=== PATIENT | female | born 1940 | race Caucasian/White ===

== ENCOUNTER 2018-07-04 16:56 | Inpatient (IN) | payer MEDICARE, MEDICAID ==
[~2018-07-04] VITALS: Ht 162.6 cm; Wt 76.5 kg
--- NOTE | ~2018-07-04 | HEMODYNAMI ---
PATIENT:MADELINE ROBINS MEDICAL RECORD: [id number] : 36 LOCATION:[facility].2118 ADMISSION DATE: 07/04/18 Generatedon:07/05/201817:36 Patient name: MADELINE ROBINS Patient #: [id number] SSN: : 1940 Date of study: 07/05/2018 Page: Of Hemodynamic Procedure Report Patient Data Patient Demographics Procedure consent was obtained First Name: MADELINE Gender: Female Last Name: SHIMON : 1940 Middle Initial: ALICIA Age: 77 year(s) Patient #: [id number] Race: Unknown Additional ID: [id number] Contact details [address]: [address] [place] [address] State: [place] City: [place] Zip code: [address] Admission Admission Data Admission Date: 07/04/2018 Admission Time: 16:56 Room #: D.2118 Procedure Procedure Types Cath Procedure Diagnostic Procedure LHC [facility] w/Coronaries PCI Procedure Coronary Stent Coronary Stent Initial Procedure Description Procedure Date Procedure Date: 07/05/2018 Procedure Start Time: 17:11 Procedure End Time: 17:32 Procedure Staff Name Function Fran Spencer MD Performing Physician Roula Webster RT Shark Biologist Martha Nettles RN Nurse Kaleigh Mazariegos RT Scrub Brandon Sanabria RT Monitor Procedure Data Cath Procedure Fluoroscopy Diagnostic fluoroscopy Total fluoroscopy Time: 4.1 time: 4.1 min min Diagnostic fluoroscopy Total fluoroscopy dose: dose: 1304 mGy 1304 mGy Contrast Material Contrast Material Type Amount (ml) Isovue 300 69 Entry Location Entry Primary Successful Side Size Upsize Upsize Entry Closure Succes sful Closure Location (Fr) 1 (Fr) 2 (Fr) Remarks Device Remarks Femoral Right 5 Fr 6 Fr artery Short Estimated blood loss: 10 ml Diagnostic catheters Device Type Used For End Catheter Placement MULTIPACK 3DRC 5Fr Procedure catheter MULTIPACK JL 4.0 5Fr Procedure catheter DIAGNOSTIC JL 5 5Fr Procedure catheter ([id number]) MULTIPACK Pigtail 5 Fr Procedure catheter Procedure Complications No complications Procedure Medications Medication Administration Route Dosage Oxygen etCO2 Nasal cannula 2 l/min Lidocaine 2% added to field 20 Heparin Flush Bag added to field 2 bags (1000units/500ml NS) 0.9% NaCl I.V. 100 ml/hr Versed I.V. 1 mg Fentanyl I.V. 50 mcg Heparin Bolus I.V. 4000 units Integrilin (Bolus I.V. 6.2 ml 2mg/ml) Versed I.V. 1 mg Fentanyl I.V. 50 mcg Plavix P.O. 600 mg Hemodynamics Rest Heart Rate: 70 (bpm) Snapshots Pre Cath Intra NCS Post Cath Vital Signs Time Heart Resp SPO2 etCO2 NIBP (mmHg) Rhythm Pain Sedation Rate (ipm) (%) (mmHg) Status Level (bpm) 17:04:07 71 17 92 24.8 132/79(119) NSR 0 (11) 10(A) , No pain 17:08:15 69 16 93 31.6 129/79(110) NSR 0 (11) 10(A) , No pain 17:12:23 69 16 91 0 120/76(103) NSR 0 (11) 10(A) , No pain 17:16:31 69 14 92 0 108/70(93) NSR 0 (11) 9(A) , No pain 17:20:32 68 15 98 2.2 112/73(93) NSR 0 (11) 9(A) , No pain 17:24:36 68 14 100 3 109/71(91) NSR 0 (11) 9(A) , No pain 17:28:38 69 14 100 5.2 107/72(98) NSR 0 (11) 10(A) , No pain Medications Time Medication Route Dose Verified Delivered Reason Notes Effectiveness by by 17:08:12 Oxygen etCO2 2 Fran Thomas used for Nasal l/min Tj Nettles RN procedure cannula 17:08:18 Lidocaine 2% added 20ml Fran Peters for local to vial Tj Spencer MD anesthetic field 17:08:23 Heparin Flush added 2 Fran Peters used for Bag to bags Tj Spencer MD procedure (1000units/500ml field NS) 17:08:32 0.9% NaCl I.V. 100 Fran Buffie Per physician ml/hr Tj Nettles RN 17:10:01 Fentanyl I.V. 50 Fran Thomas for sedation mcg Tj Nettles RN 17:10:55 Versed I.V. 1 mg Fran Thomas for sedation Tj Nettles RN 17:15:07 Versed I.V. 1 mg Fran Thomas for sedation Tj Nettles RN 17:15:11 Fentanyl I.V. 50 Fran Thomas for sedation mcg Tj Nettles RN 17:24:12 Heparin Bolus I.V. 4000 Fran Thomas for verif ied units Tj Nettles RN anticoagulation with dr spencer 17:25:24 Integrilin I.V. 6.2 Fran Thomas for waste d (Bolus 2mg/ml) ml Tj Nettles RN antiplatelet 3.8 ml therapy of vial 17:32:46 Plavix P.O. 600 Fran Thomas for mg Tj Nettles RN antiplatelet therapy Procedure Log Time Note 16:36:26 Diagnostic Cath status Elective 16:36:28 Roula Webster RT(R) sent for patient. Start room use. 16:36:31 Time tracking: Regular hours (M-F 7:00 - 5:00) 16:36:37 Plan of Care:Hemodynamics will remain stable., Cardiac rhythm will remain stable., Comfort level will be maintained., Respiratory function will remain adequate., Patient/ family verbilizes understanding of procedure., Procedure tolerated without complication., Recovers from procedure without complications.. 16:54:01 Patient received from Med II to CCL 2 Alert and oriented. Tansferred to table in Supine position. 16:54:02 Warm blankets applied, and lina hugger turned on for patient comfort. 16:54:02 Correct patient and procedure confirmed by team. 16:54:07 Signed procedure consent form obtained from patient. 16:54:08 ECG and BP/O2 sat monitors applied to patient. 16:58:26 Full Disclosure recording started 17:03:10 Vital chart was started 17:03:13 Baseline sample Acquired. 17:03:23 Rhythm: sinus rhythm 17:03:31 H&P Date Dictated: 07/05/2018 Within 30 days and on chart.. 17:03:31 Pre-procedure instructions explained to patient. 17:03:32 Pre-op teaching completed and patient verbalized understanding. 17:03:43 Family in patients room. 17:03:45 Patient NPO since Midnight. 17:03:46 Is the patient allergic to Iodine/contrast media? No. 17:03:54 Is patient on blood thinner?Yes 17:03:56 ACC The patient was administered the following blood thiners within the last 24 hours: ACCPlavix 17:03:59 Patient diabetic? No. 17:04:02 Previous problem with sedation/anesthesia? No ? 17:04:03 Snore? Yes 17:04:04 Sleep apnea? No 17:04:05 Deviated septum? No 17:04:05 Opens mouth fully? Yes 17:04:06 Sticks out tongue? Yes 17:04:12 Airway obstruction? Yes COPD 17:04:23 Dentures? No ? 17:04:36 Pre procedure: right dorsailis pedis pulse 1+ Palpable, but thready & weak; easily obliterated 17:04:52 Patient pain scale 0/10 ?. 17:05:02 IV patent on arrival in left antecubital with 0.9% NaCl at O. 17:05:04 Lab results completed and on chart. 17:05:38 Right groin area was prepped with chlora-prep and draped in sterile fashion 17:05:39 Alarms reviewed by R. N. 17:05:40 Sharps counted by scrub and verified by R.N. 17:05:43 Use device set Femoral Dx 17:05:45 Tegaderm 4 x 4 (1626W) opened to sterile field. 17:05:46 ACIST Manifold (44403) opened to sterile field. 17:05:46 ACIST Hand Control (03772) opened to sterile field. 17:05:48 ACIST Syringe (35499) opened to sterile field. 17:05:48 Bag Decanter (2002S) opened to sterile field. 17:05:49 Medline Cath Pack ([id number]) opened to sterile field. 17:05:49 DIAGNOSTIC WIRE .035 260cm J wire (670003) opened to sterile field. 17:05:51 DIAGNOSTIC Multipack 5Fr catheter set (TS8131) opened to sterile field. 17:05:51 SHEATH 5FR Rhinelander (QBW215) opened to sterile field. 17:08:12 Oxygen 2 l/min etCO2 Nasal cannula was administered by Buffie Nettles RN; used for procedure; 17:08:18 Lidocaine 2% 20ml vial added to field was administered by Fran Spencer MD; for local anesthetic; 17:08:23 Heparin Flush Bag (1000units/500ml NS) 2 bags added to field was administered by Fran Spencer MD; used for procedure; 17:08:32 0.9% NaCl 100 ml/hr I.V. was administered by Martha Nettles RN; Per physician; 17::51 --------ALL STOP TIME OUT------ 17:08:51 Final Timeout: patient, procedure, and site verified with staff and physician. All members of the team are in agreement. 17:08:54 Right groin site verified by team. 17:08:57 Physical assessment completed. ASA score P 2 - A patient with mild systemic disease as per Fran Spencer MD. 17:09:00 Sedation plan: IV Moderate Sedation Medication:Versed, Fentanyl 17:10:01 Fentanyl 50 mcg I.V. was administered by Martha Nettles RN; for sedation; 17:10:55 Versed 1 mg I.V. was administered by Martha Nettles RN; for sedation; 17:11:48 Procedure started. 17:11:51 Local anesthetic to right femoral artery with Lidocaine 2% by Fran Spencer MD.INITIAL ACCESS ONLY 17:13:56 A 5 Fr sheath was inserted into the Right Femoral artery 17:14:09 A MULTIPACK 3DRC 5Fr catheter was advanced over the wire and used for Procedure. 17:15:07 Versed 1 mg I.V. was administered by Martha Nettles RN; for sedation; 17:15:11 Fentanyl 50 mcg I.V. was administered by Martha Nettles RN; for sedation; 17:15:29 RCA angiography performed. 17:15:32 Catheter exchanged over wire. 17:16:03 A MULTIPACK JL 4.0 5Fr catheter was advanced over the wire and used for Procedure. 17:16:30 Catheter removed. unable to cannulate vessel. 17:17:28 A DIAGNOSTIC JL 5 5Fr catheter ([id number]) was advanced over the wire and used for Procedure. 17:18:05 LCA angiography performed. 17:18:22 Use device set [facility] PCI 17:18:23 SHEATH 6FR Rhinelander (XCE046) opened to sterile field. 17:18:26 CHOICE PT Extra Support 182cm wire ([id number]) opened to sterile field. 17:18:28 INFLATOR Merit Carolynpak (FS5214) opened to sterile field. 17:19:06 Catheter exchanged over wire. 17:19:16 Sheath upsized to a 6 Fr Short. 17:20:25 A MULTIPACK Pigtail 5 Fr catheter was advanced over the wire and used for Procedure. 17:21:19 LV angiography performed. 17:21:20 LV gram done using NOVOA 17::25 EF : 60 % 17:: Injector settings: Ml/sec: 10, Volume: 20, 17:21:30 Catheter exchanged over wire. 17:22:02 GUIDE 6FR HS II SH catheter ([id number]) opened to sterile field. 17:22:19 6 Fr HS 2 SH guide catheter was inserted over the wire 17:24:12 Heparin Bolus 4000 units I.V. was administered by Martha Nettles RN; for anticoagulation; verified with dr spencer 17:24:29 CPTXS wire advanced. 17:25:10 Wire advanced across lesion. 17:25:24 Integrilin (Bolus 2mg/ml) 6.2 ml I.V. was administered by Martha Nettles RN; for antiplatelet therapy; wasted 3.8 ml of vial 17:25:59 Place stent Inflation Number: 1 A INTEGRITY RX 3.0 x 26 stent ([id number]) was prepped and advanced across the Mid RCA. The stent was deployed at 13 CARLOS for 0:10 (min:sec). 17:26:03 Stent catheter was removed intact over wire. 17:27:13 Place stent Inflation Number: 1 A INTEGRITY RX 3.0 x 22 stent ([id number]) was prepped and advanced across the Prox RCA. The stent was deployed at 13 CARLOS for 0:10 (min:sec). 17:27:26 EXOSEAL 6Fr (EX600) opened to sterile field. 17:27:29 Stent catheter was removed intact over wire. 17:27:30 Wire removed. 17:27:30 Guide catheter removed. 17:27:44 Procedure ended.(Physican Out) 17::56 Fluoroscopy time 04.10 minutes. 17:28:00 Fluoroscopy dose: 1304 mGy 17:28:00 Flurop Dose total: 1304 17:28:06 Contrast amount:Isovue 300 69ml. 17:28:08 Sharps counted by scrub and verified by R.N. 17:28:09 Insertion/operative site no bleeding no hematoma. 17:28:12 Post-op/insertion site Right Femoral artery dressed using a 4 x 4 and Tegaderm. 17:28:13 Post Procedure Pulses reassessed and unchanged 17:28:16 Post-procedure physical assessment completed. ASA score P 2 - A patient with mild systemic disease as per Fran Spencer MD. 17:28:20 Post procedure rhythm: unchanged. 17:28:39 Estimated blood loss: 10 ml 17:30:43 Post procedure instruction explained to patient.Patient verbalizes understanding. 17:30:44 Patient needs reinforcement of post procedure teaching. 17:30:52 Procedure type changed to Cath procedure, Diagnostic procedure, LHC, LHC w/Coronaries, PCI procedure, Coronary Stent, Coronary Stent Initial 17:30:53 Procedure and supply charges have been captured, reviewed, submitted and are correct. 17:30:56 Procedure Complication : No complications 17:31:38 Vital chart was stopped 17:31:39 See physician's report for complete and final results. 17:32:29 Report given to [facility]. 17:32:31 Patient transfered to [facility] with Bed. 17:32:35 Procedure ended. 17:32:35 Full Disclosure recording stopped 17:32:46 Plavix 600 mg P.O. was administered by Martha Nettles RN; for antiplatelet therapy; 17:32:51 End room use (Document Last) Intervention Summary Intervention Notes Time ActionType Lesion and Equipment Action# Pressure Duration Attributes Used 17:25:59 Place stent Mid RCA INTEGRITY RX 1 13 00:10 3.0 x 26 stent ([id number]) 17:27:13 Place stent Prox RCA INTEGRITY RX 1 13 00:10 3.0 x 22 stent ([id number]) Device Usage Item Name Manufacture Quantity Catalog Number Hospital Part Current Mini garnet health Lot# / Charge Number Stock Stock Serial# Code Tegaderm 4 x 3M 1 1626W 890342 742900 517121 5 4 (1626W) ACIST Acist 1 22215 276893 762688 656513 5 Manifold VisualOn (60162) Systems Inc ACIST Hand Acist 1 29544 036627 617155 585339 5 Control Medical (45799) Systems Inc ACIST Acist 1 28185 893325 995204 923653 20 Syringe Medical (79153) Systems Inc Bag Decanter Microtek 1 2001S 858053 91165 298189 5 () Medical Inc. Medline Cath Medline 1 [id number] 293280 83506 435228 5 Pack ([id number]) DIAGNOSTIC St Sincere 1 115345 915022 857515 404436 30 WIRE .035 260cm J wire (271449) DIAGNOSTIC Cardinal 1 JA5418 475699 30908 584313 30 Multipack Health 5Fr catheter set (LM7961) SHEATH 5FR Terumo 1 AXW682 082237 457160 011717 5 Rhinelander (NHL518) MULTIPACK Cardinal 1 813528 5 3DRC 5Fr Health catheter MULTIPACK JL Cardinal 1 368919 5 4.0 5Fr Health catheter DIAGNOSTIC Cardinal 1 605452W 914542 832272 757430 5 JL 5 5Fr Health catheter (128975P) SHEATH 6FR Terumo 1 XXN258 523619 494956 901762 40 Rhinelander (OKQ079) CHOICE PT [place] 1 [id number] 181782 614124 318962 5 Extra Scientific Support 182cm wire ([id number]) INFLATOR Merit 1 VR1753 870188 279339 939747 15 [facility] Medical BasixCompak (CK8174) MULTIPACK Cardinal 1 842919 5 Pigtail 5 Fr Health catheter GUIDE 6FR HS Medtronic 1 [id number] 170527 53432 321077 1 II SH catheter (WP3LBESTN) INTEGRITY RX Medtronic 1 [id number] 069728 357246 104198 5 [id number] 3.0 x 26 stent ([id number]) INTEGRITY RX Medtronic 1 [id number] 651594 114390 558766 5 [id number] 3.0 x 22 stent ([id number]) EXOSEAL 6Fr Cardinal 1 EX600 710429 921530 533874 10 (EX600) Health Signature Audit [place] Stage Time Signature Unsigned Intra-Procedure 07/05/2018 Brandon Sanabria 5:36:49 PM RT(R) Signatures Monitor : Brandon Sanabria RT Signature : Date : Time : [address] [place] [address]
[2018-07-04] MEDS ORDERED: CALAN SR180 MG PO (17:09)
[2018-07-04] MEDS ORDERED: LEVOTHYROXINE100 MCG PO (17:09)
[2018-07-04] MEDS ORDERED: MAXZIDE 75/501 TAB PO (17:16)
[2018-07-04 17:17] VITALS: BP 101/65; BMI 25.8
[2018-07-04] MEDS ORDERED: HYDROCODON-ACE1 EAC7 PO (17:29)
[2018-07-04] MEDS ORDERED: OMEPRAZOLE20 M1 PO (17:30)
[2018-07-04] MEDS ORDERED: COMBIVENT RESPIM4 GM INH (17:31)
[2018-07-04] MEDS ORDERED: SPIRIVA18 MCG INH (17:31)
[2018-07-04] MEDS ORDERED: NEURONTIN 300300 MG PO (17:32)
[2018-07-04] MEDS ORDERED: CLARITIN 10 MG10 MG PO (17:32)
[2018-07-04] MEDS ORDERED: MOBIC7.5 MG PO (17:33)
[2018-07-04] MEDS ORDERED: DONEPEZIL HCL10 MG PO (17:33)
[2018-07-04 19:18] LABS: CKMB 3.2 U/L (0.0-3.6); CREATINE KINASE 87 UL (21-215)
[2018-07-04 19:22] LABS: TROPONIN-I 0.067 ng/mL (0.000-0.060)
[2018-07-04 20:00] VITALS: BP 101/63
[2018-07-05 01:52] LABS: CALCIUM 8.5 mg/dL (8.5-10.1); CARBON DIOXIDE 26.8 mmol/L (21.0-32.0); CREATININE - SERUM 1.2 mg/dL (0.6-1.3); POTASSIUM - SERUM 4.8 mmol/L (3.5-5.1)
[2018-07-05 01:54] LABS: BASOPHILS 0.1 % (0-2); EOSINOPHILS 0 % (0-7); HEMATOCRIT 35.6 % (36.0-48.0); HEMOGLOBIN 11.6 g/dL (12-16); IMMATURE GRANULOCYTES 0.3 % (0-5); LYMPHOCYTES 5.9 % (15-50); MCH 30.3 pg (26.0-34.0); MCHC 32.6 g/dL (31.0-37.0); MEAN PLATELET VOLUME 11.5 fL (7.4-10.4); MONOCYTES 4.2 % (2-11); NEUTROPHILS 89.5 % (40-80); PLATELET COUNT 142 10x3/uL (130-400); RBC 3.83 10x6/uL (4.00-5.40); RDW 14.1 % (11.5-14.5)
[2018-07-05 02:46] LABS: TROPONIN-I 0.101 ng/mL (0.000-0.060)
[2018-07-05 04:00] VITALS: BP 98/58
[2018-07-05 07:00] VITALS: BP 96/54
[2018-07-05 07:23] LABS: CKMB 2.6 U/L (0.0-3.6); CREATINE KINASE 61 UL (21-215)
[2018-07-05 07:24] LABS: TROPONIN-I 0.098 ng/mL (0.000-0.060)
[2018-07-05 11:06] VITALS: Ht 162.6 cm; Wt 76.5 kg
[2018-07-05 13:57] VITALS: BP 93/61
[2018-07-05 20:00] VITALS: BP 118/69
[2018-07-06 04:00] VITALS: BP 149/79
[2018-07-06 07:06] LABS: BASOPHILS 0.1 % (0-2); EOSINOPHILS 0 % (0-7); HEMOGLOBIN 11.8 g/dL (12-16); IMMATURE GRANULOCYTES 0.3 % (0-5); LYMPHOCYTES 5.6 % (15-50); MCH 30.6 pg (26.0-34.0); MCHC 31.9 g/dL (31.0-37.0); MEAN PLATELET VOLUME 11.9 fL (7.4-10.4); PLATELET COUNT 156 10x3/uL (130-400); RBC 3.86 10x6/uL (4.00-5.40); RDW 14.5 % (11.5-14.5); WBC 18.2 10x3/uL (4.8-10.8)
[2018-07-06 07:12] LABS: MCV 95.9 fL (80.0-100.0)
[2018-07-06 07:42] LABS: ANION GAP 14.1 mmol/L (8-16); CALCIUM 8.4 mg/dL (8.5-10.1); CARBON DIOXIDE 25.7 mmol/L (21.0-32.0); CREATININE - SERUM 1.2 mg/dL (0.6-1.3); MAGNESIUM - SERUM 2.5 mg/dL (1.8-2.4); POTASSIUM - SERUM 4.8 mmol/L (3.5-5.1)
[2018-07-06 10:19] VITALS: BP 148/81
[2018-07-06] MEDS ORDERED: PLAVIX75 MG PO (13:37)
[2018-07-06] MEDS ORDERED: BETAPACE 80 MG80 MG PO (13:39)
[2018-07-06] MEDS ORDERED: KEFLEX500 MG PO (13:40)
[2018-07-06] MEDS ORDERED: PREDNISONE10 MG PO (13:41)
--- NOTE | 2018-07-06 15:29 | MORECARE ---
CASE MANAGEMENT DISCHARGE SUMMARY PATIENT: MADELINE ROBINS UNIT: [id number] ADM DATE: 07/04/18 AGE: 77 : 38 SEX: F ROOM/BED: D.2118 AUTHOR: SHAQUILLE PAYTON PHYSICIAN: REFERRING PHYSICIAN: ELIEZER YIP MD DATE OF SERVICE: 07/06/18 Discharge Plan Patient Name: MADELINE ROBINS Facility: [facility]:[place] : 1940 Planned Disposition: Anticipated Discharge Date: Discharge Date: Expected LOS: Initial Reviewer: [email or web address] Initial Review Date: 07/06/2018 Generated: 07/06/18 4:29 pm Patient Name: MADELINE ROBINS Page 83953 at 1522 All edits/amendments must be made on the electronic document DICTATION DATE: 07/06/18 1529 PEOPLESOFT FINANCIAL DEVELOPER: RUBA 07/06/18 1529 RPT#: [id number] DC DATE: STATUS: ADM IN [facility] [address] [place] [address] END OF REPORT
--- NOTE | 2018-07-06 15:42 | MORECARE ---
CASE MANAGEMENT DISCHARGE SUMMARY PATIENT: MADELINE ROBINS UNIT: [id number] ADM DATE: 07/04/18 AGE: 77 : 38 SEX: F ROOM/BED: D.9334 AUTHOR: SHAQUILLE PAYTON PHYSICIAN: REFERRING PHYSICIAN: ELIEZER YIP MD DATE OF SERVICE: 07/06/18 Discharge Plan Patient Name: MADELINE ROBINS Facility: [facility]:[place] : 1940 Planned Disposition: Anticipated Discharge Date: Discharge Date: Expected LOS: Initial Reviewer: [id number] Initial Review Date: 07/06/2018 Generated: 07/06/18 4:41 pm Comments DCP- Discharge Planning Updated by [email or web address]: Kortney Nolen on 07/06/18 2:[address] Patient Name: MADELINE ROBINS Admission Status: Urgent Accout number: [id number] Admission Date: 07-04-2018 : 1940 Admission Diagnosis:UNSPECIFIED ATRIAL FIBRILLATION Attending: ELIEZER YIP Current LOS: 2 Anticipated DC Date: Planned Disposition: Primary Insurance: [facility] MEDICARE SOLUTIONS Discharge Planning Comments: CM MET WITH PATIENT OVER THE PHONE ABOUT DC PLANNING/NEEDS. PATIENT STATES PLANS TO DISCHARGE HOME TOMORROW. STATES SHE WAS ON INHALERS IN THE PAST BUT HAS BEEN OUT. DOCTOR MAY WANT TO CHECK WITH PATIENT REGARDING THE INHALERS. CM WILL FOLLOW AND ASSIST NEEDED WITH DC PLANNING/NEEDS. Pool Player: Kortney Nolen DCPIA - Discharge Planning Initial Assessment Updated by [email or web address]: Kortney Nolen on 07/06/18 3:29 pm * Is the patient Alert and Oriented? Yes * PCP [facility] [place] * Pharmacy [facility] [place] * Preadmission Environment Home with Family * ADLs Independent * Equipment Cane * List name and contact numbers for known caregivers / representatives who currently or will assist patient after discharge: ALEXI, DAUGHTER, * Community resources currently utilized None * Can the patient safely return to the preadmission environment? Yes * Has this patient been hospitalized within the prior 30 days at any hospital? No Last DP export: 07/06/18 2:29 Patient Name: MADELINE ROBINS Page 14986 at 1542 All edits/amendments must be made on the electronic document DICTATION DATE: 07/06/18 1541 SHIP ENGINEER: RUBA 07/06/18 154 RPT#: [id number] DC DATE: STATUS: ADM IN [facility] [address] [place] [address] END OF REPORT
[2018-07-06 17:31] VITALS: BP 150/88
--- NOTE | 2018-07-06 17:39 | MORECARE ---
CASE MANAGEMENT DISCHARGE SUMMARY PATIENT: MADELINE ROBINS UNIT: [id number] ADM DATE: 07/04/18 AGE: 77 : 38 SEX: F ROOM/BED: D.7194 AUTHOR: SHAQUILLE PAYTON PHYSICIAN: REFERRING PHYSICIAN: ELIEZER YIP MD DATE OF SERVICE: 07/06/18 Discharge Plan Patient Name: MADELINE ROBINS Facility: [facility]:[place] : 1940 Planned Disposition: Anticipated Discharge Date: Discharge Date: Expected LOS: Initial Reviewer: [email or web address] Initial Review Date: 07/06/2018 Generated: 07/06/18 6:39 pm Comments DCP- Discharge Planning Updated by [email or web address]: Kortney Nolen on 07/06/18 2:[address] Patient Name: MADELINE ROBINS Admission Status: Urgent Accout number: [id number] Admission Date: 07-04-2018 : 1940 Admission Diagnosis:UNSPECIFIED ATRIAL FIBRILLATION Attending: ELIEZER YIP Current LOS: 2 Anticipated DC Date: Planned Disposition: Primary Insurance: [facility] MEDICARE SOLUTIONS Discharge Planning Comments: CM MET WITH PATIENT OVER THE PHONE ABOUT DC PLANNING/NEEDS. PATIENT STATES PLANS TO DISCHARGE HOME TOMORROW. STATES SHE WAS ON INHALERS IN THE PAST BUT HAS BEEN OUT. DOCTOR MAY WANT TO CHECK WITH PATIENT REGARDING THE INHALERS. CM WILL FOLLOW AND ASSIST NEEDED WITH DC PLANNING/NEEDS. Clip Coater: Kortney Nolen DCPIA - Discharge Planning Initial Assessment Updated by [email or web address]: Kortney Nolen on 07/06/18 3:29 pm * Is the patient Alert and Oriented? Yes * PCP [facility] [place] * Pharmacy [facility] [place] * Preadmission Environment Home with Family * ADLs Independent * Equipment Cane * List name and contact numbers for known caregivers / representatives who currently or will assist patient after discharge: ALEXI, DAUGHTER, * Community resources currently utilized None * Can the patient safely return to the preadmission environment? Yes * Has this patient been hospitalized within the prior 30 days at any hospital? No Coverage Notice Reviewer: [email or web address] - Kortney Nolen Notice Issued Date-Time: 07/06/2018 16:59 Notice Type: IM Discharge Notice Notice Delivered To: Patient Relationship to Patient: Self Manager Route Name: Delivery Method: HAND - Hand Delivered Susan Days: Prior Verbal Notification: Recipient Understood Notice: Yes Recipient Signature: Yes Med Rec Note Co-signed by Attending: Coverage Notice Comment: IMM SERVED Last DP export: 07/06/18 2:42 Patient Name: MADELINE ROBINS Page 31702 at 1739 All edits/amendments must be made on the electronic document DICTATION DATE: 07/06/181738 MOTOR VEHICLE ASSEMBLER: RUBA 07/06/181738 RPT#: [id number] DC DATE: STATUS: ADM IN [facility] [address] [place] [address] END OF REPORT
--- NOTE | 2018-07-06 17:46 | MORECARE ---
CASE MANAGEMENT DISCHARGE SUMMARY PATIENT: MADELINE ROBINS UNIT: [id number] ADM DATE: 07/04/18 AGE: 77 : 38 SEX: F ROOM/BED: D.1414 AUTHOR: TATADOC PHYSICIAN: REFERRING PHYSICIAN: ELIEZER YIP MD DATE OF SERVICE: 07/06/18 Discharge Plan Patient Name: MADELINE ROBINS Facility: [facility]:[place] : 1940 Planned Disposition: Anticipated Discharge Date: Discharge Date: Expected LOS: Initial Reviewer: [email or web address] Initial Review Date: 07/06/2018 Generated: 07/06/18 6:46 pm Comments DCP- Discharge Planning Updated by [email or web address]: Kortney Nolen on 07/06/18 4:[address] Patient Name: MADELINE ROBINS Admission Status: Urgent Accout number: [id number] Admission Date: 07-04-2018 : 1940 Admission Diagnosis:UNSPECIFIED ATRIAL FIBRILLATION Attending: ELIEZER YIP Current LOS: 2 Anticipated DC Date: Planned Disposition: Primary Insurance: [facility] MEDICARE SOLUTIONS Discharge Planning Comments: CM MET WITH PATIENT OVER THE PHONE ABOUT DC PLANNING/NEEDS. PATIENT STATES PLANS TO DISCHARGE HOME TOMORROW. STATES SHE WAS ON INHALERS IN THE PAST BUT HAS BEEN OUT. DOCTOR MAY WANT TO CHECK WITH PATIENT REGARDING THE INHALERS. CM WILL FOLLOW AND ASSIST NEEDED WITH DC PLANNING/NEEDS. Cook Restaurant: Kortney Nolen Appended by Kortney Nolen on 07/06/2018 17:41 PROCESSING ASSISTANT: MET WITH PATIENT FACE TO FACE, IM SIGNED. PATIENT IS VERY SOB. PATIENT HAS BEEN WEARING 02 AT 3 TO 3.5 LITERS. PATIENT MAY NEED O2 AT HOME. ALSO, WBC IS ELEVATED. WHILE REVIEWING THE CHART I NOTICED A CXR HAS BEEN ORDERED FOR TOMORROW. DCPIA - Discharge Planning Initial Assessment Updated by [email or web address]: Kortney Nolen on 07/06/18 3:29 pm * Is the patient Alert and Oriented? Yes * PCP [facility] [place] * Pharmacy [facility] [place] * Preadmission Environment Home with Family * ADLs Independent * Equipment Cane * List name and contact numbers for known caregivers / representatives who currently or will assist patient after discharge: ALEXI, DAUGHTER, * Community resources currently utilized None * Can the patient safely return to the preadmission environment? Yes * Has this patient been hospitalized within the prior 30 days at any hospital? No Coverage Notice Reviewer: [email or web address] Wanda Nolen Notice Issued Date-Time: 07/06/2018 16:59 Notice Type: IM Discharge Notice Notice Delivered To: Patient Relationship to Patient: Self Card Decorator Name: Delivery Method: HAND - Hand Delivered Susan Days: Prior Verbal Notification: Recipient Understood Notice: Yes Recipient Signature: Yes Med Rec Note Co-signed by Attending: Coverage Notice Comment: IMM SERVED Last DP export: 07/06/18 4:39 Patient Name: MADELINE ROBINS Page 11504 at 1746 All edits/amendments must be made on the electronic document DICTATION DATE: 07/06/181744 FLATBED PRESS OPERATOR: RUBA 07/06/181744 RPT#: [id number] DC DATE: STATUS: ADM IN [facility] [address] [place] [address] END OF REPORT
--- NOTE | 2018-07-06 17:53 | MORECARE ---
CASE MANAGEMENT DISCHARGE SUMMARY PATIENT: MADELINE ROBINS UNIT: [id number] ADM DATE: 07/04/18 AGE: 77 : 38 SEX: F ROOM/BED: D.7291 AUTHOR: SHAQUILLE PAYTON PHYSICIAN: REFERRING PHYSICIAN: ELIEZER YIP MD DATE OF SERVICE: 07/06/18 Discharge Plan Patient Name: MADELINE ROBINS Facility: [facility]:[place] : 1940 Planned Disposition: Anticipated Discharge Date: Discharge Date: Expected LOS: Initial Reviewer: [id number] Initial Review Date: 07/06/2018 Generated: 07/06/18 6:53 pm Comments DCP- Discharge Planning Updated by [email or web address]: Natividad Harding on 07/06/18 4:[address] PATIENT SITTING ON THE SIDE OF THE BED. SHE HAS STATED VIA NURSES NOTES, SHE IS SHORT OF BREATH. HER OXYGEN NEEDS HAVE INCREASED FROM 2L TO 3.5. SHE IS SHORT OF BREATH AT REST. ELEVATAED WBC W/ ELEVATED NEUTROPHILS COUNT. SHE RECEIVES NEB TREATMENTS TID. CM SPOKE WITH THE RESPIRTORY THERAPIST. SHE HAD SPOKEN WITH THE NURSE EARLIER TODAY SHE FOUND THE PATIENT WITH AN O2 SAT OF 85%. PATIENT WAS INITIALLY ADMITTED TO [facility] WITH PNEUMONIA..SHE IS NOT ON OXYGEN THERAPY AT HOME. PHYSICAL THERAPY ALSO NOTED PATIENT'S SHORTNESS OF BREATH W/ THERAPY TODAY. DISCUSSED WITH RESPIRTAORY THERAPIST AND NURSE. HAS CXR ORDERED FOR AM. NO PULMONARY CONSULT. CM TO FOLLOW. RESP HAS OBTAINED ADDITIONAL ORDERS. DCP- Discharge Planning Updated by [email or web address]: Kortney Nolen on 07/06/18 4:[address] Patient Name: MADELINE ROBINS Admission Status: Urgent Accout number: [id number] Admission Date: 07-04-2018 : 1940 Admission Diagnosis:UNSPECIFIED ATRIAL FIBRILLATION Attending: ELIEZER YIP Current LOS: 2 Anticipated DC Date: Planned Disposition: Primary Insurance: [facility] MEDICARE SOLUTIONS Discharge Planning Comments: CM MET WITH PATIENT OVER THE PHONE ABOUT DC PLANNING/NEEDS. PATIENT STATES PLANS TO DISCHARGE HOME TOMORROW. STATES SHE WAS ON INHALERS IN THE PAST BUT HAS BEEN OUT. DOCTOR MAY WANT TO CHECK WITH PATIENT REGARDING THE INHALERS. CM WILL FOLLOW AND ASSIST NEEDED WITH DC PLANNING/NEEDS. Continuity Manager: Kortney Nolen Appended by Kortney Nolen on 07/06/2018 17:41 DIRECTOR ENTERPRISE DATA ARCHITECTURE: MET WITH PATIENT FACE TO FACE, IM SIGNED. PATIENT IS VERY SOB. PATIENT HAS BEEN WEARING 02 AT 3 TO 3.5 LITERS. PATIENT MAY NEED O2 AT HOME. ALSO, WBC IS ELEVATED. WHILE REVIEWING THE CHART I NOTICED A CXR HAS BEEN ORDERED FOR TOMORROW. DCPIA - Discharge Planning Initial Assessment Updated by [id number]: Kortney Nolen on 07/06/18 3:29 pm * Is the patient Alert and Oriented? Yes * PCP [facility] IN [place] * Pharmacy [facility] IN [place] * Preadmission Environment Home with Family * ADLs Independent * Equipment Cane * List name and contact numbers for known caregivers / representatives who currently or will assist patient after discharge: ALEXI, ZULEYKA, * Community resources currently utilized None * Can the patient safely return to the preadmission environment? Yes * Has this patient been hospitalized within the prior 30 days at any hospital? No Coverage Notice Reviewer: [id number] - Kortney Nolen Notice Issued Date-Time: 07/06/2018 16:59 Notice Type: IM Discharge Notice Notice Delivered To: Patient Relationship to Patient: Self Stone Crusher Operator Name: Delivery Method: HAND - Hand Delivered Susan Days: Prior Verbal Notification: Recipient Understood Notice: Yes Recipient Signature: Yes Med Rec Note Co-signed by Attending: Coverage Notice Comment: IMM SERVED Last DP export: 07/06/18 4:46 Patient Name: MADELINE ROBINS Page [phone] at 1753 All edits/amendments must be made on the electronic document DICTATION DATE: 07/06/181751 TUBE BENDER: RUBA 07/06/181751 RPT#: [id number] DC DATE: STATUS: ADM IN [facility] [address] [place] [address] END OF REPORT
[2018-07-06 21:10] VITALS: BP 155/85
[2018-07-07 00:46] VITALS: BP 136/80
[2018-07-07 05:27] VITALS: BP 157/96
[2018-07-07 06:49] LABS: BASOPHILS 0.1 % (0-2); EOSINOPHILS 0 % (0-7); HEMATOCRIT 35.5 % (36.0-48.0); HEMOGLOBIN 11.6 g/dL (12-16); IMMATURE GRANULOCYTES 0.5 % (0-5); LYMPHOCYTES 8.8 % (15-50); MCH 30.6 pg (26.0-34.0); MCHC 32.7 g/dL (31.0-37.0); MEAN PLATELET VOLUME 11.6 fL (7.4-10.4); MONOCYTES 7.9 % (2-11); NEUTROPHILS 82.7 % (40-80); RBC 3.79 10x6/uL (4.00-5.40)
[2018-07-07 06:50] LABS: MCV 93.7 fL (80.0-100.0); PLATELET COUNT 123 10x3/uL (130-400); WBC 13.2 10x3/uL (4.8-10.8)
[2018-07-07 07:06] LABS: ANION GAP 13.6 mmol/L (8-16); CALCIUM 8.7 mg/dL (8.5-10.1); CARBON DIOXIDE 27.1 mmol/L (21.0-32.0); CREATININE - SERUM 1.2 mg/dL (0.6-1.3); MAGNESIUM - SERUM 2.7 mg/dL (1.8-2.4); POTASSIUM - SERUM 4.7 mmol/L (3.5-5.1)
[2018-07-07 08:17] VITALS: BP 147/104
[2018-07-07 08:24] VITALS: BP 163/95
[2018-07-07] MEDS ORDERED: ASPIRIN81 MG PO (09:36)
[2018-07-07] MEDS ORDERED: VENTOLIN HFA18 GM INH (10:18)
[2018-07-07 12:19] VITALS: BP 146/96
--- NOTE | 2018-07-08 10:26 | MORECARE ---
CASE MANAGEMENT DISCHARGE SUMMARY PATIENT: MADELINE ROBINS UNIT: [id number] ADM DATE: 07/04/18 AGE: 77 : 38 SEX: F ROOM/BED: D.1578 AUTHOR: TATA,DOC PHYSICIAN: REFERRING PHYSICIAN: ELIEZER YIP MD DATE OF SERVICE: 07/08/18 Discharge Plan Patient Name: MADELINE ROBINS Facility: [facility]:[place] : 1940 Planned Disposition: Home Anticipated Discharge Date: 07/07/18 Discharge Date: 07/07/2018 Expected LOS: 3 Initial Reviewer: [email or web address] Initial Review Date: 07/06/2018 Generated: 07/08/18 11:26 am Comments DCP- Discharge Planning Updated by [email or web address]: Natividad Romans on 07/06/18 4:[address] PATIENT SITTING ON THE SIDE OF THE BED. SHE HAS STATED VIA NURSES NOTES, SHE IS SHORT OF BREATH. HER OXYGEN NEEDS HAVE INCREASED FROM 2L TO 3.5. SHE IS SHORT OF BREATH AT REST. ELEVATAED WBC W/ ELEVATED NEUTROPHILS COUNT. SHE RECEIVES NEB TREATMENTS TID. CM SPOKE WITH THE RESPIRTORY THERAPIST. SHE HAD SPOKEN WITH THE NURSE EARLIER TODAY SHE FOUND THE PATIENT WITH AN O2 SAT OF 85%. PATIENT WAS INITIALLY ADMITTED TO [facility] WITH PNEUMONIA..SHE IS NOT ON OXYGEN THERAPY AT HOME. PHYSICAL THERAPY ALSO NOTED PATIENT'S SHORTNESS OF BREATH W/ THERAPY TODAY. DISCUSSED WITH RESPIRTAORY THERAPIST AND NURSE. HAS CXR ORDERED FOR AM. NO PULMONARY CONSULT. CM TO FOLLOW. RESP HAS OBTAINED ADDITIONAL ORDERS. DCP- Discharge Planning Updated by [email or web address]: Kortney Nolen on 07/06/18 4:[address] Patient Name: MADELINE ROBINS Admission Status: Urgent Accout number: [id number] Admission Date: 07-04-2018 : 1940 Admission Diagnosis:UNSPECIFIED ATRIAL FIBRILLATION Attending: ELIEZER YIP Current LOS: 2 Anticipated DC Date: Planned Disposition: Primary Insurance: [facility] MEDICARE SOLUTIONS Discharge Planning Comments: CM MET WITH PATIENT OVER THE PHONE ABOUT DC PLANNING/NEEDS. PATIENT STATES PLANS TO DISCHARGE HOME TOMORROW. STATES SHE WAS ON INHALERS IN THE PAST BUT HAS BEEN OUT. DOCTOR MAY WANT TO CHECK WITH PATIENT REGARDING THE INHALERS. CM WILL FOLLOW AND ASSIST NEEDED WITH DC PLANNING/NEEDS. Carburetor Expert: Kortney Nolen Appended by Kortney Nolen on 07/06/2018 17:41 WICKER WORKER: MET WITH PATIENT FACE TO FACE, IM SIGNED. PATIENT IS VERY SOB. PATIENT HAS BEEN WEARING 02 AT 3 TO 3.5 LITERS. PATIENT MAY NEED O2 AT HOME. ALSO, WBC IS ELEVATED. WHILE REVIEWING THE CHART I NOTICED A CXR HAS BEEN ORDERED FOR TOMORROW. DCPIA - Discharge Planning Initial Assessment Updated by [email or web address]: Kortney Nolen on 07/06/18 3:29 pm * Is the patient Alert and Oriented? Yes * PCP [facility] IN [place] * Pharmacy [facility] IN [place] * Preadmission Environment Home with Family * ADLs Independent * Equipment Cane * List name and contact numbers for known caregivers / representatives who currently or will assist patient after discharge: ALEXI, ZULEYKA, * Community resources currently utilized None * Can the patient safely return to the preadmission environment? Yes * Has this patient been hospitalized within the prior 30 days at any hospital? No Coverage Notice Reviewer: [id number] - Kortney Nolen Notice Issued Date-Time: 07/06/2018 16:59 Notice Type: IM Discharge Notice Notice Delivered To: Patient Relationship to Patient: Self Dukey Rider Name: Delivery Method: HAND - Hand Delivered Susan Days: Prior Verbal Notification: Recipient Understood Notice: Yes Recipient Signature: Yes Med Rec Note Co-signed by Attending: Coverage Notice Comment: IMM SERVED Last DP export: 07/06/18 4:53 Patient Name: MADELINE ROBINS Page [phone] at 1026 All edits/amendments must be made on the electronic document DICTATION DATE: 07/08/18 1026 SPRAY DRIER OPERATOR: RUBA 07/08/18 1026 RPT#: [id number] DC DATE:07/07/18 STATUS: DIS IN [facility] [address] [place] [address] END OF REPORT
--- NOTE | 2018-07-08 14:36 | OP ---
PATIENT NAME: MADELINE ROBINS MEDICAL RECORD: [id number] :[birth year] LOCATION:D.M2 D.2118 ADMISSION DATE:07/04/18 SURGEON: HARSHA JUAREZ MD DATE OF OPERATION: 07/05/2018 PROCEDURES: 1. PTCA and stent, RCA. 2. Left heart catheterization. 3. Selective coronary angiography. 4. Left ventriculogram. INDICATIONS: Angina, atrial fibrillation, and coronary artery disease. PROCEDURE IN DETAIL: After informed consent was obtained with detailed description of risks and benefits as well as alternative therapies, the patient elected to proceed with angiogram and angioplasty. The right femoral area was prepped and draped in normal sterile fashion. Right femoral artery was cannulated via modified Seldinger technique with placement of 6-Mauritanian sheath. All catheters were exchanged through this sheath. FINDINGS: Left ventriculogram performed in standard 30-degree NOVOA view reveals good cardiac wall motion throughout all segments. Overall ejection fraction estimated at 60%. SELECTIVE CORONARY ANGIOGRAPHY: 1. Left main is with no significant angiographic disease. 2. Left anterior descending has moderate irregularities, but no flow-limiting stenosis. 3. Left circumflex has mild irregularities, but no flow-limiting stenosis. 4. Right coronary has long area of 70+ percent stenosis throughout the mid vessel. PTCA AND STENT OF THE RIGHT CORONARY: Stent used was 3.0 x 30-mm Integrity. Result was 0% residual stenosis. OVERALL IMPRESSION: Successful PTCA and stent of the right coronary, going from 70+ percent initial stenosis to 0% residual. TRANSINT:[id number] Voice Confirmation ID: [id number] DOCUMENT ID: [id number] HARSHA JUAREZ MD at 1436 CC: [id number] DICTATION DATE: 07/05/18 1734 VENETIAN BLIND ASSEMBLER: 07/06/18 0337 DIS IN 07/07/18 [place] [id number] [place] [address]
== END 2018-07-07 15:06 | disposition home or self-care (01) | DRG 248 ==
LOC: D.M2 16:56
PROVIDERS: Family Medicine; Internal Medicine Interventional Cardiology; ADMIT Emergency Medicine
PROC: B2111ZZ Fluoroscopy of Multiple Coronary Arteries using Low Osmolar Contrast (ICD-10-PCS; 2018-07-05)
PROC: B2151ZZ Fluoroscopy of Left Heart using Low Osmolar Contrast (ICD-10-PCS; 2018-07-05)
PROC: 02703DZ Dilation of Coronary Artery, One Artery with Intraluminal Device, Percutaneous Approach (ICD-10-PCS; principal; 2018-07-05 16:36)
PROC: 4A023N7 Measurement of Cardiac Sampling and Pressure, Left Heart, Percutaneous Approach (ICD-10-PCS; 2018-07-05 16:36)
DX: I21.4 Non-ST elevation (NSTEMI) myocardial infarction (principal); J18.9 Pneumonia, unspecified organism; J44.0 Chronic obstructive pulmonary disease with (acute) lower respiratory infection; I48.91 Unspecified atrial fibrillation; J20.9 Acute bronchitis, unspecified; E03.9 Hypothyroidism, unspecified; I10 Essential (primary) hypertension; K21.9 Gastro-esophageal reflux disease without esophagitis; Z72.0 Tobacco use; I25.119 Atherosclerotic heart disease of native coronary artery with unspecified angina pectoris

== ENCOUNTER 2018-07-08 20:59 | Inpatient (IN) | payer MEDICARE, MEDICAID ==
[~2018-07-08] VITALS: Ht 162.6 cm; Wt 68.6 kg
[~2018-07-08 20:59] MED LIST: ASPIRIN81 MG PO; BETAPACE 80 MG80 MG PO; CALAN SR180 MG PO; CLARITIN 10 MG10 MG PO; COMBIVENT RESPIM4 GM INH; DONEPEZIL HCL10 MG PO; HYDROCODON-ACE1 EAC7 PO; KEFLEX500 MG PO; LEVOTHYROXINE100 MCG PO; MAXZIDE 75/501 TAB PO; MOBIC7.5 MG PO; NEURONTIN 300300 MG PO; OMEPRAZOLE20 M1 PO; PLAVIX75 MG PO; PREDNISONE10 MG PO; SPIRIVA18 MCG INH; VENTOLIN HFA18 GM INH
--- NOTE | 2018-07-08 21:08 | NUR ---
MENESES IN PLACE. DRAINING TO GRAVITY. URINE COLOR YELLOW.
[2018-07-08 21:51] LABS: BASOPHILS 0.1 % (0-2); EOSINOPHILS 0.3 % (0-7); HEMATOCRIT 34.1 % (36.0-48.0); HEMOGLOBIN 11.3 g/dL (12-16); IMMATURE GRANULOCYTES 0.4 % (0-5); LYMPHOCYTES 10.2 % (15-50); MCH 30.6 pg (26.0-34.0); MCHC 33.1 g/dL (31.0-37.0); MCV 92.4 fL (80.0-100.0); MEAN PLATELET VOLUME 11.5 fL (7.4-10.4); PLATELET COUNT 107 10x3/uL (130-400); RBC 3.69 10x6/uL (4.00-5.40); RDW 13.9 % (11.5-14.5); WBC 9.9 10x3/uL (4.8-10.8)
[2018-07-08 22:05] LABS: ALBUMIN 2.9 g/dL (3.4-5.0); ANION GAP 12.9 mmol/L (8-16); BILIRUBIN - TOTAL 0.5 mg/dL (0.2-1.3); CALCIUM 8.4 mg/dL (8.5-10.1); CARBON DIOXIDE 26.6 mmol/L (21.0-32.0); CREATININE - SERUM 1.4 mg/dL (0.6-1.3); POTASSIUM - SERUM 4.5 mmol/L (3.5-5.1); PROTEIN - SERUM 5.7 g/dL (6.4-8.2)
[2018-07-08 22:14] LABS: TROPONIN-I 0.043 ng/mL (0.000-0.060)
--- NOTE | 2018-07-08 22:16 | NUR ---
FAMILY AT BEDSIDE AT THIS TIME
[2018-07-08 22:27] VITALS: BP 116/68
--- NOTE | 2018-07-08 22:27 | NUR ---
PT ALERT AND TALKING TO FAMILY AT THIS TIME. PT REQUESTING SOME TO DRINK, ADVISED PT AND FAMILY WILL ASK MD. NO CHANGES NOTED. WILL MONITOR
[2018-07-08 22:37] VITALS: BP 117/74
[2018-07-08 23:08] VITALS: BP 137/68
--- NOTE | 2018-07-08 23:09 | NUR ---
425 URINE OUTPUT AT THIS TIME
[2018-07-08 23:21] LABS: APPEARANCE CLEAR (CLEAR); COLOR YELLOW (YELLOW)
[2018-07-08 23:22] LABS: BILIRUBIN NEGATIVE (NEGATIVE); GLUCOSE NEGATIVE (NEGATIVE); KETONE NEGATIVE (NEGATIVE); NITRITE NEGATIVE (NEGATIVE); PROTEIN NEGATIVE (NEGATIVE); UROBILINOGEN NORMAL (NORMAL)
--- NOTE | 2018-07-08 23:25 | NUR ---
ATTEMPTED IV START X 1. UNABLE TO START AT THIS TIME. SIMPLE DRESSING APPLIED. PT TOLERATED WELL
--- NOTE | 2018-07-08 23:28 | NUR ---
MEHUL RB AT BEDSIDE STARTING IV AT THIS TIME
--- NOTE | 2018-07-08 23:36 | NUR ---
REPORT CALLED FROM ER.
[2018-07-08 23:56] VITALS: BP 98/56
--- NOTE | 2018-07-08 23:56 | NUR ---
ADVISED ON CURRENT BP AT THIS TIME. RECIEVED NEW ORDERS
[2018-07-09] VITALS (8 sets, daily range): BP systolic 88–129; BP diastolic 48–80
--- NOTE | 2018-07-09 | NUR ---
NO CHANGES NOTED. WILL MONITOR
--- NOTE | 2018-07-09 00:17 | NUR ---
RT AT BEDSIDE DRAWING ABG AT THIS TIME
--- NOTE | 2018-07-09 00:25 | NUR ---
REPORT CALLED TO ABBIE
--- NOTE | 2018-07-09 00:26 | NUR ---
IV ROCEPHIN STOPPED AT THIS TIME
--- NOTE | 2018-07-09 02:12 | NUR ---
ZITHROMAX UP AND INFUSING. PT RESTING WITH DEEP/EVEN RESPIRATIONS. DAUGHTER AT BEDSIDE.
--- NOTE | 2018-07-09 03:15 | NUR ---
PT RESTING IN BED WITH NO DISTRESS. NONLABORED RESPIRATIONS. MONITOR AND CPOC.
[2018-07-09 06:23] LABS: BASOPHILS 0 % (0-2); EOSINOPHILS 0 % (0-7); HEMATOCRIT 32.6 % (36.0-48.0); HEMOGLOBIN 10.8 g/dL (12-16); IMMATURE GRANULOCYTES 0.4 % (0-5); LYMPHOCYTES 11.1 % (15-50); MCH 30.5 pg (26.0-34.0); MCHC 33.1 g/dL (31.0-37.0); MCV 92.1 fL (80.0-100.0); MEAN PLATELET VOLUME 11.9 fL (7.4-10.4); MONOCYTES 1.5 % (2-11); PLATELET COUNT 99 10x3/uL (130-400); RBC 3.54 10x6/uL (4.00-5.40); RDW 13.9 % (11.5-14.5); WBC 9.8 10x3/uL (4.8-10.8)
--- NOTE | 2018-07-09 07:10 | NUR ---
REPORT RECEIVED FROM NONFARM ANIMAL CARETAKER. P ATIENT CURRENTLY LAYING IN BED WITH EYES CLOSED BREATHING EVENLY. DR UP BED IN LO0W POSTION AND CALL LIGHT IN REACH. DAUGHTER ASLEEP IN BED SIDE CHAIR.
[2018-07-09 07:24] LABS: CALC OSMOLALITY 297 mosm/kg (275-300); CARBON DIOXIDE 26.7 mmol/L (21.0-32.0); CHLORIDE - SERUM 104 mmol/L (98-107); CKMB 0.8 U/L (0.0-3.6); CREATINE KINASE 16 UL (21-215); CREATININE - SERUM 1.4 mg/dL (0.6-1.3); GLUCOSE 175 mg/dL (74-106); POTASSIUM - SERUM 4.5 mmol/L (3.5-5.1); SODIUM 142 mmol/L (136-145); TROPONIN-I 0.023 ng/mL (0.000-0.060); UREA NITROGEN 42 mg/dL (7-18); eGFR NON AFRICAN AMERICAN 38 mL/min (90-120)
[2018-07-09 09:49] LABS: CKMB 0.1 U/L (0.0-3.6); CREATINE KINASE 20 UL (21-215)
--- NOTE | 2018-07-09 10:34 | NUR ---
PATIENT SITTING UP IN BED VISITING WITH DAUGHTER. PATIENT DENIES ANY NEEDS OR PAIN. WILL CONTINUE WITH PLAN OF CARE.
[2018-07-09 12:44] LABS: % SATURATION 11 % (15-55); IRON 31 ug/dl (35-150); TOTAL IRON BIND CAPACITY 277 ug/dl (260-445); UNSAT IRON BIND CAPACITY 246 ug/dl (150-375)
--- NOTE | 2018-07-09 15:10 | NUR ---
PATIENT STABLE AND UNCHANGED. FAMILY AT BEDSIDE. WILL CONTINUE TO MONITOR
--- NOTE | 2018-07-09 18:25 | NUR ---
PATIENT PULLED OUT OR DISLODGED IV .ONE ATTEMPT BY VICKI VELAZQUEZ HAS BEEN MADE BUT WAS UNSUCCESSFUL. CALLED ER FOR ASSISTANCE AND HELP WAS NOT AVAILABLE. SON AT BEDSIDE.
--- NOTE | 2018-07-09 19:35 | NUR ---
IN WITH FAMILY AT BEDSIDE. TELEMATRY IN PLACE, F/C INTACT AND PATENDECREASED LUNGS SOUNDS. O2 IN PLACE VIA N/C AT 2 L.
[2018-07-10 00:55] VITALS: BP 99/61
[2018-07-10 04:00] VITALS: BP 107/54
--- NOTE | 2018-07-10 07:10 | NUR ---
RECEIVED REPORT FROM TRACK FITTER. PATIENT LAYING IN BED WITH EYES CLOSED AND BREATHING EVENLY. SR UP X 2 BED IN LOW POSITION AND CALL LIGHT IN REACH. WILL CONTINUE TO MONITOR DAUGHTER IN BEDSIDE CHAIR SLEEPING.
[2018-07-10 07:52] VITALS: BP 81/52
--- NOTE | 2018-07-10 10:03 | NUR ---
PATIENT SITTING UP IN BED WATCHING TV AND VISITING WITH DAUGHTER. PATIENT DENIES ANY PAIN OR NEEDS. WILL CONTINUE WITH PLAN OF CARE.
[2018-07-10 11:34] VITALS: BP 81/45
--- NOTE | 2018-07-10 12:40 | NUR ---
PATIENT STABLE AND UNCHANGED. DENIES ANY NEEDS OR PAIN.
[2018-07-10 12:54] LABS: ANION GAP 12.2 mmol/L (8-16); CALCIUM 8.3 mg/dL (8.5-10.1); CARBON DIOXIDE 33.1 mmol/L (21.0-32.0)
[2018-07-10 12:55] LABS: CREATININE - SERUM 1.9 mg/dL (0.6-1.3); POTASSIUM - SERUM 3.3 mmol/L (3.5-5.1)
[2018-07-10 13:11] LABS: BASOPHILS 0.1 % (0-2); EOSINOPHILS 2.3 % (0-7); HEMATOCRIT 36.6 % (36.0-48.0); HEMOGLOBIN 12.3 g/dL (12-16); IMMATURE GRANULOCYTES 0.4 % (0-5); LYMPHOCYTES 30.3 % (15-50); MCH 30.8 pg (26.0-34.0); MCHC 33.6 g/dL (31.0-37.0); MCV 91.7 fL (80.0-100.0); MEAN PLATELET VOLUME 11.7 fL (7.4-10.4); MONOCYTES 7.9 % (2-11); PLATELET COUNT 116 10x3/uL (130-400); RBC 3.99 10x6/uL (4.00-5.40); WBC 11.5 10x3/uL (4.8-10.8)
--- NOTE | 2018-07-10 14:00 | NUR ---
PATIENT UJP TO BEDSIDE CHAIR WITH ASSISTANCE. DTR AT SIDE. WILL CONTINUE TO MONITOR CLOSELY
[2018-07-10 15:57] VITALS: BP 100/69
--- NOTE | 2018-07-10 17:30 | NUR ---
PATIENT STILL IN BEDSIDE CHAIR EATING SUPPER. PATIENT DENIES NEEDS OR PAIN. DTR AT SIDE. PATIENT IS STABLE AND VITAL SIGNS ARE GOOD. WILL CONTINUE TO MONITOR.
--- NOTE | 2018-07-10 19:15 | NUR ---
RESUME CARE. PT IN BED A&0 X4 NO C/O OF PAIN OR DISTRESS AT THIS TIME DAUGHTER AT BEDSIDE CALL LIGHT IN REACH WILL CONT TO CHRISTIAN
[2018-07-10 20:00] VITALS: BP 118/62
[2018-07-11] VITALS: BP 92/65
--- NOTE | 2018-07-11 02:21 | NUR ---
DC'd RT HAND IV...
--- NOTE | 2018-07-11 02:46 | NUR ---
ZOFRAN GIVEN IV FOR NAUSEA
[2018-07-11 04:00] VITALS: BP 116/64
[2018-07-11 06:17] LABS: BASOPHILS 0.1 % (0-2); HEMATOCRIT 37.8 % (36.0-48.0); HEMOGLOBIN 12.7 g/dL (12-16); IMMATURE GRANULOCYTES 0.7 % (0-5); LYMPHOCYTES 24.2 % (15-50); MCH 30.9 pg (26.0-34.0); MCHC 33.6 g/dL (31.0-37.0); MEAN PLATELET VOLUME 11.1 fL (7.4-10.4); MONOCYTES 9.9 % (2-11); NEUTROPHILS 62.1 % (40-80); PLATELET COUNT 103 10x3/uL (130-400); RBC 4.11 10x6/uL (4.00-5.40); RDW 14.1 % (11.5-14.5); WBC 11.5 10x3/uL (4.8-10.8)
[2018-07-11 06:28] LABS: INR 1.11 (0.85-1.17); PROTIME 13.8 SECONDS (11.6-15.0)
[2018-07-11 06:35] LABS: D-DIMER-QUANTITATIVE 9.34 ug/mLFEU (0.20-0.54)
[2018-07-11 06:37] LABS: % SATURATION 27 % (15-55); IRON 94 ug/dl (35-150); TOTAL IRON BIND CAPACITY 345 ug/dl (260-445); UNSAT IRON BIND CAPACITY 251 ug/dl (150-375)
[2018-07-11 06:48] LABS: ANION GAP 10.7 mmol/L (8-16); CALCIUM 8.8 mg/dL (8.5-10.1); CARBON DIOXIDE 35.4 mmol/L (21.0-32.0); CREATININE - SERUM 1.9 mg/dL (0.6-1.3)
[2018-07-11 06:49] LABS: POTASSIUM - SERUM 4.1 mmol/L (3.5-5.1)
[2018-07-11 07:23] LABS: FOLATE (FOLIC ACID) - SERUM 8.8 ng/mL (>3.0)
[2018-07-11 09:18] VITALS: BP 86/54
--- NOTE | 2018-07-11 09:57 | NUR ---
LEFT HAND 22G IV INFILTRATED. DC'D WITH CATH INTACT.
--- NOTE | 2018-07-11 10:48 | NUR ---
RESTING QUIETLY NAD NOTED
--- NOTE | 2018-07-11 12:08 | NUR ---
LEFT FA 22G IV INSERTED X1 ATTEMPT.
--- NOTE | 2018-07-11 12:09 | NUR ---
RUBI COLLADO P.T. STATED TO ME PT IS AN EASY X1 PERSON TRANSFER FROM BED TO RECLINER CHAIR IF PT WANTS TO GET UP FOR DINNER WE SHOULD BE ABLE TO TRANSFER HER.
--- NOTE | 2018-07-11 12:18 | NUR ---
PT HAS MENESES CATH BUT NO STAT LOC. STAT LOC PLACED ON PT'S LEFT LEG.
--- NOTE | 2018-07-11 13:57 | CN ---
PATIENT NAME:MADELINE ROBINS MEDICAL RECORD: [id number] : [birth year] LOCATION:D. D.2109 ADMIT DATE: 07/08/18 ACCOUNT: [id number] CONSULTING PHYSICIAN: DELMI MEAD MD REFERRING PHYSICIAN: ALYSSA GOLDEN MD DATE OF CONSULTATION: 07/08/2018 HISTORY OF PRESENT ILLNESS: A 77-year-old female recently discharged with a history of status post intervention, was transferred here from outside hospital for worsening respiratory insufficiency. Mental status changes, was transferred here for shortness of breath, did have elevated BNP. Of note, LV function was normal at the time of diagnostic angiography. Additionally, has some areas of consolidation in the right lower lobe, which could be consistent with hospital-acquired pneumonitis. We are asked to see her concerning her cardiovascular status. PAST MEDICAL HISTORY: Includes: 1. History of coronary artery disease as described above. 2. Obstructive pulmonary disease. 3. Atrial fibrillation. 4. Hypertension. 5. Hypothyroidism, on replacement. ALLERGIES: None known. MEDICATIONS: Typically include Synthroid 100 mcg every day, Aricept 10 mg p.o. at bedtime, Maxzide 1 tablet every day, sotalol 80 b.i.d., Plavix 75 every day, Ventolin inhaler 2 puffs q.6 hours, and Combivent 1 puff q.i.d. SOCIAL HISTORY: Lives in [place], nonsmoker, good family support. REVIEW OF SYSTEMS: The patient reports easy bruising but reports no swollen glands. The patient reports no fever, no night sweats, no significant weight gain, no significant weight loss. No significant exercise tolerance. The patient reports no dry eyes, no irritation, no vision change. Patient reports no difficulty hearing and no ear pain. Patient reports no frequent nose bleeds or nose and sinus problems. Patient reports on arm pain on exertion. No shortness of breath while lying down. No history of heart murmur. Patient reports no cough, no wheezing or coughing up blood. Patient reports no abdominal pain, no vomiting. Normal appetite. No diarrhea and not vomiting blood. No nausea and no constipation. Patient reports no incontinence. No difficulty urinating. No hematuria. No increased frequency. Patient reports no muscle aches. No weakness, no arthralgias, no back pain. No swelling of the extremities. Patient reports no abnormal mole, no jaundice, no rashes. Reports no loss of consciousness. No weakness and no numbness. No seizures, dizziness, or headaches. The patient reports no depression, no sleep disturbance, feeling safe in a relationship and no alcohol abuse. Patient reports on fatigue. Reports no runny nose or sinus pressure. No itching, no hives, and no frequent sneezing. PHYSICAL EXAMINATION: GENERAL: Chronically ill-appearing female in no acute distress. VITAL SIGNS: 122/62, pulse 60 and regular. HEENT: Normocephalic, atraumatic. NECK: No bruits are noted. CONSULT REPORT [id number] MADELINE ROBINS HEART: Regular, II/ systolic ejection murmur. LUNGS: Diminished breath sounds. ABDOMEN: Soft, nontender. EXTREMITIES: Pulse 2+ with no edema. DIAGNOSTIC DATA: ECG actually shows sinus rhythm, minimal ST-T changes, certainly no evidence of stent thrombosis. IMPRESSION: LV function previously normal via diagnostic angiography. We will check echocardiographic studies to ensure no valve pathology. No evidence of acute stent thrombosis. Further recommendations based on clinical course. TRANSINT:[id number] Voice Confirmation ID: [id number] DOCUMENT ID: [id number] DELMI MEAD MD at 1357 CC: [id number] DICTATION DATE: 07/09/181123 VETERINARIAN SMALL ANIMAL: 07/09/182056 ADM IN [place] [id number]
--- NOTE | 2018-07-11 13:57 | EC ---
PATIENT:MADELINE ROBINS DATE OF SERVICE: 07/08/18 SEX: F MEDICAL RECORD: [id number] DATE OF : [birth year] LOCATION:D.M2 D.210 AGE OF PATIENT: 77 ADMISSION DATE: 07/08/18 REFERRING PHYSICIAN: INTERPRETING PHYSICIAN: DELMI MEAD MD ECHOCARDIOGRAM REPORT ECHO CHARGES 4 ECHO COMPLETE Date: 07/09/18 CLINICAL DIAGNOSIS: CHF ECHOCARDIOGRAPHIC MEASUREMENTS (adult normal given) AC root (d.<3.7cm) 3.6 cm LV Septum d (<1.2 cm> 1.7 cm Valve Excursion 1.3 cm LV Septum (systole) 1.8 cm Left Atria (s.<4.0cm> 4.1 cm LVPW d(<1.2cm) 1.0 cm RV (d.<2.3cm) 3.3 cm LVPW (sytole) 1.0 cm LV diastole(<5.6CM) 4.6 cm MV E-F(>70mm/sec) cm LV systole 3.2 cm LVOT Diameter 1.8 cm MV exc.(>10mm) cm Est.ejection fraction (50-75%) % DOPPLER: LVIT cm/sec A 100 cm/sec E 94 cm/sec LA cm/sec RVSP 41.7 mmHg LVOT 121 cm/sec AOP1/2T m/s Asc. Ao 172 cm/sec RVOT 69 cm/sec RA cm/sec PA 100 cm/sec AV Gradient Peak 11.8 mmHg AV Mean 6.6 mmHg AV Area 2.1 cm MV Gradient Peak 4.4 mmHg MV Mean 2.3 mmHg MV Area cm COMMENTS: Lithographing Machine Operator: Ramonita CASSIDY Vp Account Director: 3 Dr. Ornelas TAPE# PACS Pericardial Effusion N DATE OF SERVICE: 07/10/2018 Adequate 2D, color-flow and spectral Doppler, and M-mode LVH is present. LV internal dimensions are normal. Wall motion is normal. EF is greater than or equal to 55%. Aortic valve sclerosis is without stenosis by Doppler interrogation. Uizi-lt-clrujjkl apical imaging. Left atrium are upper limits of normal with mildly dilated at 4.1 cm. Mitral valve is thickened. Mitral annular calcification with only mild MR. Right-sided chambers are grossly normal. Mild TR with color-flow imaging. ECHOCARDIOGRAM REPORT [id number] MADELINE ROBINS TRANSINT:[id number] Voice Confirmation ID: [id number] DOCUMENT ID: [id number] DELMI MEAD MD at 1357 CC: [id number] DICTATION DATE: 07/10/18 0135 ANIMAL CARE ASSISTANT: 07/10/18 0714 ADM IN [facility] [address] [place] [id number]
[2018-07-11 14:09] VITALS: Ht 162.6 cm; Wt 68.6 kg
--- NOTE | 2018-07-11 14:15 | NUR ---
SPOKE WITH ISABEL SHAW AND STATED TO HER PT MAY BE CONSTIPATED SHE STATED TO ORDER MAG CITRATE 300ML ONE TIME.
[2018-07-11 15:02] VITALS: BP 102/38
[2018-07-11 15:10] VITALS: BP 98/63
--- NOTE | 2018-07-11 16:10 | NUR ---
PT REFUSING VQ SCAN SHE'S "TOO TIRED". STATED TO PT AND PT'S DAUGHTER THAT SCAN IS IMPORTANT TO BE DONE TODAY SO THE DOCTOR CAN HAVE THE RESULTS TOMORROW. THE DAUGHTER VERBALIZED UNDERSTANING BUT THE PT WAS PASSIVE AND STILL DIDN'T WANT SCAN. CHAPLAIN STATED SHE WILL COME BACK TOMORROW.
--- NOTE | 2018-07-11 19:30 | NUR ---
RESUME CARE. PT RADIOLOGY IN RM PT A&O BREATHING EVEN O2 IN PLACE VIA NC @3L DAUGHTER AT BEDSIDE NO C/O OF PAIN OR DISTRESSA AT THIS TIME CALL LIGHT IN REACH WILL CONT TO CHRISTIAN
[2018-07-11 20:00] VITALS: BP 126/77
[2018-07-12] VITALS: BP 109/65
--- NOTE | 2018-07-12 00:20 | NUR ---
PT NEEDED ASSISTS TO BATHROOM, ONCE PT STOOD UP SHE STATED SHE HAD THE SHAKES AND SHE APPEARED WEAK AND STARTED JURKING, APPEARED TO NOT BE ABLE TO HOLD HER SELF UP ON THE COMMODE AND YELLING FOR HER DAUGTHER WHO WAS AT THE BEDSIDE, THE JURKS APPEAR TO STOP AND START BACK AFTER WE TRANFERED HER BACK IN BED , PT SCREAMS OUT AT TIMES WHEN SHE'S BEING TOUCHED SUCH (HOOKING HER UP TO THE IV PUMP) SHE SCREAMED AT HER DAUGHTER FOR NOT ASSISTING IN TRANFER DAUGHTER APPEARS PASSIVE IN REGARDS TO THE PT
[2018-07-12 04:00] VITALS: BP 103/63
[2018-07-12 06:12] LABS: ANION GAP 7.3 mmol/L (8-16); CALCIUM 8.9 mg/dL (8.5-10.1); CARBON DIOXIDE 39.1 mmol/L (21.0-32.0); CREATININE - SERUM 1.7 mg/dL (0.6-1.3); POTASSIUM - SERUM 4.4 mmol/L (3.5-5.1)
[2018-07-12 06:50] LABS: BASOPHILS 0.1 % (0-2); HEMATOCRIT 37.2 % (36.0-48.0); HEMOGLOBIN 12.4 g/dL (12-16); IMMATURE GRANULOCYTES 0.5 % (0-5); MCH 30.3 pg (26.0-34.0); MCHC 33.3 g/dL (31.0-37.0); MEAN PLATELET VOLUME 11.4 fL (7.4-10.4); NEUTROPHILS 60.4 % (40-80); PLATELET COUNT 117 10x3/uL (130-400); RBC 4.09 10x6/uL (4.00-5.40); RDW 13.7 % (11.5-14.5); WBC 12.9 10x3/uL (4.8-10.8)
--- NOTE | 2018-07-12 08:15 | NUR ---
STATED TO RAJEEV SHAW PT'S BP IS 70/52. SHE STATES HOLD LASIX AND ANY BP MEDICATIONS AND GIVE 500 OF NS AND IF THAT DOESN'T BRING IT UP TO LET HER KNOW.
--- NOTE | 2018-07-12 08:30 | NUR ---
NS BOLUS STARTED INFUSING AND THEN LEFT FA IV INFILTRATED. STOPPED NS BOLUS AND DC'D LEFT FA 22G IV WITH CATH INTACT. WILL RESTART NEW IV.
[2018-07-12 08:31] VITALS: BP 70/52
--- NOTE | 2018-07-12 08:49 | NUR ---
22G IV TO LEFT FOREARM WITH ONE ATTEMPT. SECURED WITH TAPE, COVERED WITH OPSITE. INITIALED AND DATED.
--- NOTE | 2018-07-12 09:14 | NUR ---
PT IV ONLY TOLERATING NS AT 175. TRIED BUMPING TO 200ML/HR AND HAD TO TURN IT DOWN TO 175ML/HR.
--- NOTE | 2018-07-12 10:59 | NUR ---
PT TAKEN VIA WC FOR SCAN BY [place] FROM NUCLE[facility] MEDICINE.
--- NOTE | 2018-07-12 11:50 | NUR ---
PT RETURNED FROM SCAN.
--- NOTE | 2018-07-12 12:04 | NUR ---
NS BOLUS DONE INFUSING. BP NOW 102/52.
[2018-07-12 13:05] VITALS: BP 102/52
--- NOTE | 2018-07-12 14:01 | NUR ---
PT SITTING UP ON BEDSIDE. SOB NOTED. HAS 02 ON. WILL CONTINUE TO MONITOR.
--- NOTE | 2018-07-12 14:42 | NUR ---
Rehab Note- Acute Inpatient Rehab prescreen order received. The patient has [facility] insurance and will require a PreAuth prior to an inpatient acute rehab stay. Will need OT Eval for PreAuth, has been ordered. Will begin the PreAuth process. Will follow at this time. THank you for this referral! Justyna Matos RN Clinical Liaison, [facility] Rehab
--- NOTE | 2018-07-12 17:37 | MORECARE ---
CASE MANAGEMENT DISCHARGE SUMMARY PATIENT: MADELINE ROBINS UNIT: [id number] ADM DATE: 07/08/18 AGE: 77 : 38 SEX: F ROOM/BED: D.2108 AUTHOR: SHAQUILLE PAYTON PHYSICIAN: REFERRING PHYSICIAN: ALYSSA GOLDEN MD DATE OF SERVICE: 07/12/18 Discharge Plan Patient Name: MADELINE ROIBNS [facility] [facility] 1940 Planned Disposition: Inpatient Rehab Anticipated Discharge Date: Discharge Date: Expected LOS: Initial Reviewer: [email or web address] Initial Review Date: 07/12/2018 Generated: 07/12/18 6:37 pm DCPIA - Discharge Planning Initial Assessment Updated by [email or web address]: Anrdew Butcher on 07/12/18 5:31 pm * Is the patient Alert and Oriented? Yes * How many steps to enter\exit or inside your home? NONE * PCP DR[facility]OC[facility]N LUJAN IN [facility] * Pharmacy [facility] IN [place] * Preadmission Environment Home with Family * ADLs Independent * Equipment Home Photo Therapy * Other Equipment HOME AND PORTABLE OXYGEN - *NEEDS NEW OXYGEN QUALIFICATION TESTING PRIOR TO DISCHARGE HOME [facility] PATIENT * List name and contact numbers for known caregivers / representatives who currently or will assist patient after discharge: RICHARD FISCHER, DTR, * Verbal permission to speak to the caregivers and representatives has been obtained from the patient. Yes * Community resources currently utilized None * Please name any agencies selected above. NONE * Additional services required to return to the preadmission environment? No * Can the patient safely return to the preadmission environment? Yes * Has this patient been hospitalized within the prior 30 days at any hospital? Yes Patient Name: MADELINE ROBINS Page [phone] at 1737 All edits/amendments must be made on the electronic document DICTATION DATE: 07/12/181736 GUTTER INSTALLER: RUBA 07/12/181736 RPT#: [id number] DC DATE: STATUS: ADM IN [facility] [address] [place] [address] END OF REPORT
--- NOTE | 2018-07-12 17:45 | MORECARE ---
CASE MANAGEMENT DISCHARGE SUMMARY PATIENT: MADELINE ROBINS UNIT: [id number] ADM DATE: 07/08/18 AGE: 77 : 38 SEX: F ROOM/BED: D.3408 AUTHOR: TATADOC PHYSICIAN: REFERRING PHYSICIAN: ALYSSA GOLDEN MD DATE OF SERVICE: 07/12/18 Discharge Plan Patient Name: MADELINE ROBINS [facility] [facility] 1940 Planned Disposition: Inpatient Rehab Anticipated Discharge Date: Discharge Date: Expected LOS: Initial Reviewer: [id number] Initial Review Date: 07/12/2018 Generated: 07/12/18 6:45 pm Comments DCP- Discharge Planning Updated by [email or web address]: Andrew Butcher on 07/12/18 4:[address] Patient Name: MADELINE ROBINS Admission Status: ER Accout number: [id number] Admission Date: 07-08-2018 : 1940 Admission Diagnosis:HEART FAILURE, UNSPECIFIED Attending: ALYSSA GOLDEN Current LOS: 4 Anticipated DC Date: Planned Disposition: Inpatient Rehab Primary Insurance: [facility] MEDICARE SOLUTIONS PLANNED EXTERNAL PROVIDER: [facility] INPATIENT REHAB Discharge Planning Comments: CM RECIEVED ORDER FOR INPATIENT REHAB PRESCREENING. CM MET WITH PT AND DAUGHTER IN ROOM TO DISCUSS DISCHARGE PLANNING AND NEEDS. MADELINE ROBINS provided verbal consent to discuss current and ongoing needs with/in the presence of: RICHARD HALL. PT WANTS RICHARD EMERGENCY CONTACT AND WANTS DAUGHTER ALEXI REMOVED EMERGENCY CONTACT. PT REPORTS LIVING AT HOME INDEPENDENTLY WITH FAMILY. PT HASHOME AND PORTABLE OXYGEN THAT WAS SET UP THE OTHER DAY WITH [facility]. PT ALSO HAS A CANE. PT HAS NO OUTSIDE SERVICES ASSISTING IN THE HOME. CM DISCUSSED AVAILABILITY OF HOME HEALTH, REHAB SERVICES AND MEDICAL EQUIPMENT. PT WANTS REHAB AT [facility], REPORTS HER DAUGHTER WILL PICK HER UP FOR DISCHARGE HOME. IMPORTANT MESSAGE FROM MEDICARE PROVIDED AND EXPLAINED. CM NOTIFIED RODERICK OF ADMISSIONS OF PT'S REQUEST TO REMOVE DAUGHTER ALEXI LEVI EMERGENCY CONTACT AND TO ADD DAUGHTER RICHARD FISCHER, . CM SPOKE TO MACI OF INPATIENT REHAB, NOTIFIED OF PT'S WANTING REHAB AT [facility]. PT HAS MANAGED MEDICARE AND WILL REQUIRE PRIOR AUTHORIZATION FROM INSURANCE FOR REHAB SERVICES. CM TO CONTINUE TO FOLLOW AND ASSIST NEEDED. Oracle Scm Consultant: Andrew Butcher DCPIA - Discharge Planning Initial Assessment Updated by [id number]: Andrew Butcher on 07/12/18 5:31 pm * Is the patient Alert and Oriented? Yes * How many steps to enter\exit or inside your home? NONE * PCP DR[facility] JOCELYN LUJAN IN [facility] * [facility]acy [facility] IN [place] * Preadmission Environment Home with Family * ADLs Independent * Equipment Home Photo Therapy * Other Equipment HOME AND PORTABLE OXYGEN - *NEEDS NEW OXYGEN QUALIFICATION TESTING PRIOR TO DISCHARGE HOME [facility] * List name and contact numbers for known caregivers / representatives who currently or will assist patient after discharge: RICHARD FISCHER DTHannah, * Verbal permission to speak to the caregivers and representatives has been obtained from the patient. Yes * Community resources currently utilized None * Please name any agencies selected above. NONE * Additional services required to return to the preadmission environment? No * Can the patient safely return to the preadmission environment? Yes * Has this patient been hospitalized within the prior 30 days at any hospital? 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 [address] END OF REPORT
--- NOTE | 2018-07-12 19:20 | NUR ---
RESUME CARE . PT SITTING UP IN BED [address] VIA NC @3L NO C/O OF PAIN OR DISTRESS AT THIS WILL CONT TO MONTIOR CALL LIGHT IN REACH
--- NOTE | 2018-07-12 21:00 | NUR ---
HELD BETAPACE BP 107/71
[2018-07-12 21:08] VITALS: BP 107/71
--- NOTE | 2018-07-13 02:56 | NUR ---
RESTING WITH EYES CLOSED. RR EVEN U/L. NO S/S OF DISCOMFORT. CL IN REACH.
[2018-07-13 05:15] LABS: BASOPHILS 0 % (0-2); EOSINOPHILS 1.4 % (0-7); HEMATOCRIT 34.7 % (36.0-48.0); HEMOGLOBIN 11.5 g/dL (12-16); IMMATURE GRANULOCYTES 0.4 % (0-5); LYMPHOCYTES 23.4 % (15-50); MCH 30.3 pg (26.0-34.0); MCHC 33.1 g/dL (31.0-37.0); MCV 91.3 fL (80.0-100.0); MEAN PLATELET VOLUME 11.4 fL (7.4-10.4); MONOCYTES 9.8 % (2-11); PLATELET COUNT 111 10x3/uL (130-400); RDW 13.7 % (11.5-14.5); WBC 11.8 10x3/uL (4.8-10.8)
[2018-07-13 05:46] LABS: ANION GAP 8.2 mmol/L (8-16); CARBON DIOXIDE 35.3 mmol/L (21.0-32.0); CREATININE - SERUM 1.4 mg/dL (0.6-1.3)
[2018-07-13 05:51] LABS: POTASSIUM - SERUM 3.5 mmol/L (3.5-5.1)
--- NOTE | 2018-07-13 09:00 | NUR ---
PATIENTS DAUGHTER REMAINS AT BEDSIDE. MENESES CATH IN PLACE. TELELMTRY IN PLACE. PATIENT IS ALERT/ORIENT. CALL LIGHT WITHIN REACH. WILL CONTINUE WITH PLAN OF CARE.
[2018-07-13 09:01] VITALS: BP 138/88
--- NOTE | 2018-07-13 10:12 | NUR ---
UP TO CHAIR WITH PT ASSIST. IV PATENT. CALL LIGHT IN REACH.
--- NOTE | 2018-07-13 12:38 | NUR ---
OT NOTE: DURING OT EVALUATION, DTR WAS AT PTS BEDSIDE. SHE BEGAN TELLING THERAPIST THAT PT HAD STARTED THESE "JERKING" MOVEMENTS ON Jul WHEN PTS OTHER DTR CAME TO VISIT. STATED THAT SHE BROUGHT PT IN SOME FOOD AND FELT THAT IT MIGHT HAVE BEEN POISONED. STATES THAT SHE INFORMED THE NURSE AND WILL TELL DR WHEN HE COMES IN ( SHE WANTS PT TO BE TESTED FOR POISON ). RUTH CANELA, OTR/L
--- NOTE | 2018-07-13 12:59 | NUR ---
PATIENT SITTING UP IN WHEELCHAIR AT BEDSIDE. DAUGHTER REMAINS IN ROOM. THIS NURSE TALKED TO DR GOLDEN IN REGARDS TO NEW ONSET OF SHAKING.
[2018-07-13 14:03] VITALS: BP 110/79
[2018-07-13 17:44] VITALS: BP 121/58
--- NOTE | 2018-07-13 19:15 | NUR ---
RECIEVED UP IN BED WITH DTR AT BEDSIDE. EYES CLOSED AND TV ON. APPEARS TO BE RESTING COMFORTABLY. DTR VOICES CONCERNS OVER ATIVAN AND IF HER MOM IS GOING TO GET IT BECAUSE HER HANDS SHEKE. STATED TOLD HER IT WAS PROBABLY FROM NERVES. NO OTHER CONCERNS VOICED. PT AROUSES TO VERBAL STIMULI. VERY LETHARGIC. DENIES ANY PAIN OR NEEDS. WILL CONT. POC.
[2018-07-13 20:23] VITALS: BP 92/56
[2018-07-14 01:46] VITALS: BP 103/52
--- NOTE | 2018-07-14 04:05 | NUR ---
RESTING IN BED WITH EYES CLOSED AT THIS TIME. DTR IN CHAIR AT BEDSIDE. WILL CONT. POC.
[2018-07-14 05:29] LABS: BASOPHILS 0.1 % (0-2); EOSINOPHILS 1.4 % (0-7); HEMATOCRIT 34.3 % (36.0-48.0); HEMOGLOBIN 11.2 g/dL (12-16); IMMATURE GRANULOCYTES 0.3 % (0-5); LYMPHOCYTES 21.7 % (15-50); MCH 30.4 pg (26.0-34.0); MCHC 32.7 g/dL (31.0-37.0); MEAN PLATELET VOLUME 11.9 fL (7.4-10.4); MONOCYTES 12.3 % (2-11); NEUTROPHILS 64.2 % (40-80); PLATELET COUNT 107 10x3/uL (130-400); RBC 3.69 10x6/uL (4.00-5.40); RDW 14.2 % (11.5-14.5); WBC 11.6 10x3/uL (4.8-10.8)
[2018-07-14 05:34] VITALS: BP 98/59
[2018-07-14 05:35] LABS: CALCIUM 8.7 mg/dL (8.5-10.1); CARBON DIOXIDE 35.8 mmol/L (21.0-32.0); CREATININE - SERUM 1.3 mg/dL (0.6-1.3); POTASSIUM - SERUM 3.8 mmol/L (3.5-5.1)
--- NOTE | 2018-07-14 08:00 | NUR ---
PATIENTS DAUGHTER REMAINS IN ROOM. PATIENT IS ALERT WITH SOME FORGETFULLNESS NOTED. CALL LIGHT WITHIN REACH. VOICES NO NEEDS. WILL CONTINUE WITH PLAN OF CARE.
--- NOTE | 2018-07-14 08:05 | NUR ---
RESP UL ON . IV PATENT. FAMILY MEMBER AT BS. CALL LIGHT IN REACH. WILL CONT. PLAN OF CARE.
[2018-07-14 08:09] LABS: IMMUNOGLOBULIN E 4 IU/mL (0-100)
[2018-07-14 08:31] VITALS: BP 106/64
--- NOTE | 2018-07-14 10:06 | NUR ---
DR. SOTO INTO SEE PATIENT. SEE TIMOTHY BLOOD
[2018-07-14 11:56] VITALS: BP 89/48
--- NOTE | 2018-07-14 14:03 | NUR ---
PHYSICAL THERAPIST WORKING WITH PATIENT IN ROOM. PATIENT REQUESTED PRN PAIN MEDICATION FOR BACK AND ABDOMENAL PAIN. PRN PAIN MEDICATION GIVEN
[2018-07-14 15:35] VITALS: BP 80/47
--- NOTE | 2018-07-14 19:08 | NUR ---
RECIEVED UP IN BED USING HER FINGERS TO EAT. ALERT AND ORIENTED TO PERSON. O2@ 3 LITERS PER N/C IN PLACE. IV TO LEFT FA WITH NS INFUSING AT 30CC/HR. NO REDNESS OR SWELLING TO SITE. DSG INTACT. DENIES ANY NEEDS. WILL CONT. POC.
[2018-07-14 20:00] VITALS: BP 79/48
[2018-07-15] VITALS: BP 82/50
[2018-07-15 04:00] VITALS: BP 86/37
[2018-07-15 05:44] LABS: BASOPHILS 0.1 % (0-2); EOSINOPHILS 1.4 % (0-7); HEMATOCRIT 32.3 % (36.0-48.0); HEMOGLOBIN 10.3 g/dL (12-16); IMMATURE GRANULOCYTES 0.3 % (0-5); LYMPHOCYTES 16.3 % (15-50); MCH 29.9 pg (26.0-34.0); MCHC 31.9 g/dL (31.0-37.0); MCV 93.9 fL (80.0-100.0); MEAN PLATELET VOLUME 11.9 fL (7.4-10.4); MONOCYTES 10.3 % (2-11); NEUTROPHILS 71.6 % (40-80); PLATELET COUNT 110 10x3/uL (130-400); RBC 3.44 10x6/uL (4.00-5.40); RDW 14.4 % (11.5-14.5); WBC 11.8 10x3/uL (4.8-10.8)
[2018-07-15 06:04] LABS: ANION GAP 9.5 mmol/L (8-16); CALCIUM 8.8 mg/dL (8.5-10.1); CARBON DIOXIDE 36.9 mmol/L (21.0-32.0); CREATININE - SERUM 1.4 mg/dL (0.6-1.3)
[2018-07-15 06:11] LABS: POTASSIUM - SERUM 4.4 mmol/L (3.5-5.1)
[2018-07-15 08:37] VITALS: BP 88/47
--- NOTE | 2018-07-15 10:23 | NUR ---
Rehab Note- Awaiting for clinicals to be faxed for review for possible inpatient acute rehab stay. Will continue to follow at this time. Thank you for this referral! Justyna Matos RN Clinical Liaison, [facility] Rehab
--- NOTE | 2018-07-15 11:11 | NUR ---
DINESH YING WITH DR GOLDEN, INFORMED HER OF THE SPOT ON THE PATIENTS UPPER LEFT HIP AREA THAT APPEARS TO BE HERPES. SHE STATED THAT THEY WILL LOOK AT IT DURING ROUNDS.
--- NOTE | 2018-07-15 11:28 | NUR ---
OLD SALINE LOCK TO LEFT FA REMOVED WITH CATH TIP INTACT. IV SITE IS RED AND SLIGHTLY SWOLLEN. RE-SITED TO RIGHT HAND WITH 22 G X 2 STICKS PER THIS NURSE.
--- NOTE | 2018-07-15 11:46 | NUR ---
NG TUBE FEEDING FLUSHED WITH WATER AND CLAMPED.
[2018-07-15 11:56] VITALS: BP 91/40
--- NOTE | 2018-07-15 13:30 | NUR ---
OT NOTE: DTR AT BEDSIDE; DTR DOES NOT REMEMBER THERAPIST COMING IN TO SEE PT THIS WEEKEND. PT LIEING IN BED; ENCOURAGED PT TO ROLL TO SIDE; REQUIRED EXT TIME, PT CONTINUED TO FALL ASLEEP. MIN ASSIST FOR SUPINE TO SIT; P.T. AND O.T. BOTH ASSISTED PT WITH AMBULATION APPROX 6 STEPS. PT WITH CONSTANT EPISODES OF LEGS GIVING OUT; CONTINUES WITH SHAKEY/JERKY TYPE MOVEMEMTS IN BOTH UPPER AND LOWER EXT. REQUIRES EXTENSIVE ASSIST SHE IS UNABLE TO CONTINUALLY SUPPORT HERSELF IN STANDING. RUTH CANELA, OTR/L
[2018-07-15 15:20] VITALS: BP 79/41
--- NOTE | 2018-07-15 16:24 | NUR ---
DR PINEDO AND DR RAGSDALE NOTIFIED OF HOLDING THE AFTERNOON DOSE OF GABERPENTIN PATIENT IS REALLY SLEEPY.
--- NOTE | 2018-07-15 18:07 | NUR ---
OT NOTE: PT COMPLETED SITTING BALANCE AXS WITH CGA. PT COMPLETED SELF FEEDING WITH VERBAL CUES AND SET UP. THANK YOU, KRISHNA ZAMORA
--- NOTE | 2018-07-15 19:00 | NUR ---
PT ALERT AND ORIENTED WHEN ENTERING THE ROOM. PT FINISHING BREATHING TREATMENT. PT LUNGS PRESENT WITH DIMINISHED BREATH SOUNDS IN BILATERAL UPPERA AND LOWER LOBES. PT RATES PAIN OF 8 ON SCALE OF1-10 TO ABDOMEN. PT HAS RIGHT HAND IV THAT IS SALINE LOCKED. PT IS WEARING 2L O2 VIA NASAL CANNULA. NO DISTRESS NOTED AT THIS TIME. CALL LIGHT IN REACH AND PT VERBALIZES HOW TO USE.
[2018-07-15 20:00] VITALS: BP 98/62
--- NOTE | 2018-07-15 21:03 | NUR ---
PT CALLED OUT FOR DAUGHTER SEVERAL TIMES. HAD TO EXPLAIN THAT DAUGHTER WAS NOT HERE AND THEN PT WOULD REMEMBER AND APOLOGIZE. PT IS ORIENTED TO PERSON AND TO "HOSPITAL" AND STATES "I DONT KNOW WHAT TIME IT IS BUT I KNOW ITS NIGHT TIME." PT TOLERATED HS MEDICATIONS. CALL LIGHT IN HAND.
--- NOTE | 2018-07-15 23:26 | NUR ---
RN ANGIOGRAPHY AT BEDSIDE TO OBTAIN VITALS, CALL LIGHT IN REACH. WILL CONTINUE WITH PLAN OF CARE.
[2018-07-16] VITALS: BP 95/51
--- NOTE | 2018-07-16 03:42 | NUR ---
ANSWERED PT CALL LIGHT. PT COMPLAINING OF ABDOMEN AND BACK PAIN, RATES 10/10. ADMINISTERED PRN PAIN MEDICINE ORDERED. DAUGHTER AT BEDSIDE.
[2018-07-16 04:00] VITALS: BP 104/59
[2018-07-16 05:32] LABS: BASOPHILS 0.2 % (0-2); EOSINOPHILS 1.8 % (0-7); HEMATOCRIT 34.6 % (36.0-48.0); HEMOGLOBIN 11.3 g/dL (12-16); IMMATURE GRANULOCYTES 0.3 % (0-5); LYMPHOCYTES 23.7 % (15-50); MCH 30.6 pg (26.0-34.0); MCHC 32.7 g/dL (31.0-37.0); MCV 93.8 fL (80.0-100.0); MEAN PLATELET VOLUME 11.6 fL (7.4-10.4); MONOCYTES 10.9 % (2-11); NEUTROPHILS 63.1 % (40-80); PLATELET COUNT 118 10x3/uL (130-400); RBC 3.69 10x6/uL (4.00-5.40); RDW 14.8 % (11.5-14.5); WBC 10.3 10x3/uL (4.8-10.8)
--- NOTE | 2018-07-16 05:53 | NUR ---
PT ALERT AND ORIENTED WHEN ENTERING THE ROOM. PT UP IN CHAIR. DAUGHTER AT BEDSIDE AND STATED SHE ASSISTED PT TO BED. PT HAS NO COMPLAINTS AT THIS TIME. DENIES NEEDS. CALL LIGHT IN REACH.
[2018-07-16 06:01] LABS: ANION GAP 7.8 mmol/L (8-16); CARBON DIOXIDE 36.2 mmol/L (21.0-32.0); CREATININE - SERUM 1.2 mg/dL (0.6-1.3); MAGNESIUM - SERUM 2.1 mg/dL (1.8-2.4)
[2018-07-16 08:19] VITALS: BP 93/50
--- NOTE | 2018-07-16 10:00 | NUR ---
REMOVED OLD NICOTINE PATCH FROM UPPER LEFT SHOULDER AND DISPOSED OF IT PROPERLY, NEW PATCH APPLIED TO UPPER RIGHT SCAPULA
--- NOTE | 2018-07-16 10:55 | NUR ---
1045-DAUGHTER TO COME TO DESK AND STATE THAT "MY MOM JUST THREW UP SOME FRUIT COCKTAIL". PATIENT CLEANED UP, NEW GOWN OFFERED. I OFFERED SOME NAUSEA MEDICATION AND FLORENCET REFUSED IT. WILL MONITOR.
[2018-07-16 11:44] VITALS: BP 92/51
--- NOTE | 2018-07-16 12:37 | NUR ---
Rehab Note- Clinicals requested via fax notification- faxed at this time. Await determination of possible acute inpatient rehab stay. Thank you for this referral! Justyna Matos RN Clinical Liaison, [facility] Rehab
--- NOTE | 2018-07-16 16:28 | NUR ---
OT NOTE: PT PERFORMED BETTER TODAY; BED MOB WITH MIN ASSIST; TRANSFER INTO CHAIR FROM BED WITHOUT "LEGS BUCKLING"...DTR STATES THAT SHE HAS BEEN "WORKING WITH HER ALOT". QUESTIONED DTR AGAIN ABOUT PTS PLOF. DTR CONT TO STATE THAT SHE WAS NOT HAVING THESE "JERKING" TYPE MOVEMENTS AT HOME. PT ABLE TO FEED SELF WITH SET UP OF TRAY. RUTH CANELA,OTR/L
[2018-07-16 16:36] VITALS: BP 97/59
[2018-07-16 19:00] VITALS: BP 107/56
--- NOTE | 2018-07-16 19:30 | NUR ---
RESUME CARE. PT LAYING IN BED A&O RECIEVING TREATMENT FROM RESPATORY DAUGHTER AT BEDSIDE SQL REPORT ANALYST C/O OF PAIN OR DISTRESS AT THIS TIME CALL LIGHT IN REACHE WILL CONT TO CHRISTIAN
[2018-07-17 04:00] VITALS: BP 109/56
[2018-07-17 06:21] LABS: BASOPHILS 0.1 % (0-2); EOSINOPHILS 1.8 % (0-7); HEMATOCRIT 33.8 % (36.0-48.0); HEMOGLOBIN 10.9 g/dL (12-16); IMMATURE GRANULOCYTES 0.4 % (0-5); LYMPHOCYTES 27.2 % (15-50); MCH 30.4 pg (26.0-34.0); MCHC 32.2 g/dL (31.0-37.0); MCV 94.2 fL (80.0-100.0); MEAN PLATELET VOLUME 11.9 fL (7.4-10.4); MONOCYTES 11.2 % (2-11); NEUTROPHILS 59.3 % (40-80); PLATELET COUNT 121 10x3/uL (130-400); RBC 3.59 10x6/uL (4.00-5.40); RDW 14.8 % (11.5-14.5); WBC 8.1 10x3/uL (4.8-10.8)
[2018-07-17 06:29] LABS: ANION GAP 9.7 mmol/L (8-16); CALCIUM 8.8 mg/dL (8.5-10.1); CARBON DIOXIDE 35.9 mmol/L (21.0-32.0); CREATININE - SERUM 1.3 mg/dL (0.6-1.3); MAGNESIUM - SERUM 2.2 mg/dL (1.8-2.4); POTASSIUM - SERUM 3.6 mmol/L (3.5-5.1)
--- NOTE | 2018-07-17 07:27 | NUR ---
RESTING IN BED WITH EYES CLOSED. DTR AT BEDSIDE. NO S/S OF DISTRESS OBSERVED.
--- NOTE | 2018-07-17 08:02 | NUR ---
AM ROUNDS COMPLETED. PT AAO X3 RESP. UNLABORED, VSS, PT NIES NEED FOR PAIN AND AT THIS TIME. WILL CTM. CL IN REACH BED IN LOW.
[2018-07-17 08:25] VITALS: BP 94/47
--- NOTE | 2018-07-17 10:24 | NUR ---
Rehab Note- Spoke with Radha, Clinical Reviewer for [facility], this AM requesting more therapy notes- these were faxed yesterday but refaxed them seperately this AM. Will continue to await determination for possible inpatient acute rehab stay. Thank you for this referral! Justyna Matos RN Clinical Liaison, [facility] Rehab
[2018-07-17 11:53] VITALS: BP 90/58
--- NOTE | 2018-07-17 14:51 | NUR ---
Cardiac diet with 2gm Na Pt eating ~45% of meals Pt is able to feed self if set up Pt reports she has not been eating as well as usual due to taste changes Pt reports she will drink an Ensure if not able to eat meal Encouraged Ensure RD following
[2018-07-17 16:36] VITALS: BP 84/53
--- NOTE | 2018-07-17 16:46 | NUR ---
OT NOTE: PT PERFORMED BETTER TODAY. ABLE TO PERFORM BED MOB WITH MIN ASSIST; AMBULATION WITH WALKER AND MIN ASSIST X 8 FT. NO "BUCKLING" NOTED TODAY, HOWEVER, PT FATIGUED VERY QUICKLY. REQUIRED MAX ASSIST TO SOHAM SOCKS AND MOD ASSIST TO SOHAM GOWN. PT REPORTED THAT SHE ATE LUNCH WHILE UP IN CHAIR BUT UNSURE OF ACCURACY OF THIS. RUTH CANELA, OTR/L
--- NOTE | 2018-07-17 17:00 | NUR ---
PT SITTING UP IN CHAIR WITH FAMILY AT BEDSIDE. DENIES NEEDS FOR PAIN. CL IN REACH BED IN LOW.
[2018-07-17 20:04] VITALS: BP 88/45
[2018-07-18] VITALS: BP 105/44
--- NOTE | 2018-07-18 01:30 | NUR ---
PT SITTING UP IN BED COMPLAINING OF NEUSEA. PRN ZOFRAN ADMINISTERED. PT FAMILY AT BEDSIDE. BED LOW CALL LIGHT WITHIN REACH. WILL CONTINUE TO MONITOR.
[2018-07-18 04:00] VITALS: BP 102/52
--- NOTE | 2018-07-18 04:43 | NUR ---
PT RESTING COMFORTABLY. RESPIRATIONS EVEN AND UNLABORED. BED LOW CALL LIGHT WITHIN REACH. WILL CONTINUE TO MONITYOR
[2018-07-18 05:42] LABS: CALCIUM 8.8 mg/dL (8.5-10.1); CARBON DIOXIDE 34.9 mmol/L (21.0-32.0); CREATININE - SERUM 1.2 mg/dL (0.6-1.3); MAGNESIUM - SERUM 2.1 mg/dL (1.8-2.4); POTASSIUM - SERUM 3.9 mmol/L (3.5-5.1)
[2018-07-18 05:51] LABS: HEMOGLOBIN 10.9 g/dL (12-16); LYMPHOCYTES 24.6 % (15-50); MCH 31.8 pg (26.0-34.0); MCHC 34.1 g/dL (31.0-37.0); MCV 93.3 fL (80.0-100.0); MEAN PLATELET VOLUME 11.3 fL (7.4-10.4); PLATELET COUNT 103 10x3/uL (130-400); RBC 3.43 10x6/uL (4.00-5.40); RDW 14.5 % (11.5-14.5); WBC 6.9 10x3/uL (4.8-10.8)
[2018-07-18 07:58] VITALS: BP 126/72
--- NOTE | 2018-07-18 08:00 | NUR ---
RECIEVED BEDSIDE REPORT. AM ROUNDS COMPLETED AND ALL AM MEDS GIVEN. PT HAS BEEN SLEEPY ALL. MORNING. AROUSE PT TO ASSESS VS. VSS, AA0 X3. FAMILY AT BEDSIDE. WILL CONTINUE POC. CL IN REACH, BED IN LOW. WILL CTM.
--- NOTE | 2018-07-18 10:07 | NUR ---
Rehab Note- Received voicemail from Radha with [facility] stating their medical office worker had denied the patient an inpatient acute rehab stay that she can be managed at a lower level of care such as a SNF. A peer to peer can be set up by contacting Radha with [facility] at [phone] by today Jul 18 at 1600. Spoke with LUZ Gamboa. Thank you for this referral! Justyna Matos RN Clinical Liaison, [facility] Rehab
[2018-07-18 11:46] VITALS: BP 122/77
--- NOTE | 2018-07-18 12:48 | NUR ---
OT NOTE: PT SITTING UP IN CHAIR ASLEEP WITH BREAKFAST TRAY IN FRONT OF HER; DTR IN PTS BED, ALSO EATING BREAKFAST. DTR REPORTS THAT PT WAS UP ALL NIGHT AND IS VERY SLEEPY NOW. FREQ TACTILE AND VERBAL CUES REQIRED TO AWAKEN PT. AMB WITH MIN/MOD ASSIST X 2, BUT ONLY ABOUT 7-10 FT. PT STATED THAT SHE WAS GOING TO FALL IF SHE WALKED ANY FURTHER. ASSISTED BACK TO CHAIR. ENCOURAGED PT TO EAT AND DRINK MORE. OPENED HER ENSURE, AND SHE WAS ABLE TO OPEN STRAW ( AFTER ABOUT 7 ATTEMPTS). PT CONSUMED APPROX HALF AND WAS ABLE TO EAT SOME OF BREAKFAST. RUTH CANELA, OTR/L
--- NOTE | 2018-07-18 14:43 | MORECARE ---
CASE MANAGEMENT DISCHARGE SUMMARY PATIENT: MADELINE ROBINS UNIT: [id number] ADM DATE: 07/08/18 AGE: 77 : 38 SEX: F ROOM/BED: D.6537 AUTHOR: TATA,DOC PHYSICIAN: REFERRING PHYSICIAN: ALYSSA GOLDEN MD DATE OF SERVICE: 07/18/18 Discharge Plan Patient Name: MADELINE ROBINS [facility] [facility] 1940 Planned Disposition: Shelter Facility Anticipated Discharge Date: 07/19/18 Discharge Date: Expected LOS: 11 Initial Reviewer: [email or web address] Initial Review Date: 07/12/2018 Generated: 07/18/18 3:43 pm Comments DCP- Discharge Planning Updated by [email or web address]: Andrew Butcher on 07/12/18 4:[address] Patient Name: MADELINE ROBINS Admission Status: ER Accout number: [id number] Admission Date: 07-08-2018 : 1940 Admission Diagnosis:HEART FAILURE, UNSPECIFIED Attending: ALYSSA GOLDEN Current LOS: 4 Anticipated DC Date: Planned Disposition: Inpatient Rehab Primary Insurance: [facility] MEDICARE SOLUTIONS PLANNED EXTERNAL PROVIDER: [facility] INPATIENT REHAB Discharge Planning Comments: CM RECIEVED ORDER FOR INPATIENT REHAB PRESCREENING. CM MET WITH PT AND DAUGHTER IN ROOM TO DISCUSS DISCHARGE PLANNING AND NEEDS. MADELINE ROBINS provided verbal consent to discuss current and ongoing needs with/in the presence of: RICHARD HALL. PT WANTS RICHARD EMERGENCY CONTACT AND WANTS DAUGHTER ALEXI REMOVED EMERGENCY CONTACT. PT REPORTS LIVING AT HOME INDEPENDENTLY WITH FAMILY. PT HASHOME AND PORTABLE OXYGEN THAT WAS SET UP THE OTHER DAY WITH [facility]. PT ALSO HAS A CANE. PT HAS NO OUTSIDE SERVICES ASSISTING IN THE HOME. CM DISCUSSED AVAILABILITY OF HOME HEALTH, REHAB SERVICES AND MEDICAL EQUIPMENT. PT WANTS REHAB AT [facility], REPORTS HER DAUGHTER WILL PICK HER UP FOR DISCHARGE HOME. IMPORTANT MESSAGE FROM MEDICARE PROVIDED AND EXPLAINED. CM NOTIFIED RODERICK OF ADMISSIONS OF PT'S REQUEST TO REMOVE DAUGHTER ALEXI LEVI EMERGENCY CONTACT AND TO ADD DAUGHTER RICHARD FISCHER, . CM SPOKE TO MACI OF INPATIENT REHAB, NOTIFIED OF PT'S WANTING REHAB AT [place]. PT HAS MANAGED MEDICARE AND WILL REQUIRE PRIOR AUTHORIZATION FROM INSURANCE FOR REHAB SERVICES. CM TO CONTINUE TO FOLLOW AND ASSIST NEEDED. Industrial Spray Painter: Andrew Butcher DCPIA - Discharge Planning Initial Assessment Updated by [email or web address]: Andrew Butcher on 07/12/18 5:31 pm * Is the patient Alert and Oriented? Yes * How many steps to enter\exit or inside your home? NONE * PCP DR[facility] JOCELYN LUJAN IN [facility] * Pharmacy [facility] IN [place] * Preadmission Environment Home with Family * ADLs Independent * Equipment Home Photo Therapy * Other Equipment HOME AND PORTABLE OXYGEN - *NEEDS NEW OXYGEN QUALIFICATION TESTING PRIOR TO DISCHARGE HOME [facility] * List name and contact numbers for known caregivers / representatives who currently or will assist patient after discharge: RICHARD FISCHER, [place], * Verbal permission to speak to the caregivers and representatives has been obtained from the patient. Yes * Community resources currently utilized None * Please name any agencies selected above. NONE * Additional services required to return to the preadmission environment? No * Can the patient safely return to the preadmission environment? Yes * Has this patient been hospitalized within the prior 30 days at any hospital? 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
--- NOTE | 2018-07-18 15:01 | MORECARE ---
CASE MANAGEMENT DISCHARGE SUMMARY PATIENT: MADELINE ROBINS UNIT: [id number] ADM DATE: 07/08/18 AGE: 77 : 38 SEX: F ROOM/BED: D.4890 AUTHOR: TATA,DOC PHYSICIAN: REFERRING PHYSICIAN: ALYSSA GOLDEN MD DATE OF SERVICE: 07/18/18 Discharge Plan Patient Name: MADELINE ROBINS Facility: [facility]:[place] : 1940 Planned Disposition: Nursing Home Facility Anticipated Discharge Date: 07/19/18 Discharge Date: Expected LOS: 11 Initial Reviewer: [id number] Initial Review Date: 07/12/2018 Generated: 07/18/18 4:01 pm Comments DCP- Discharge Planning Updated by [id number]: Andrew Butcher on 07/18/18 1:[address] Patient Name: MADELINE ROBINS Encounter No: [id number] : 1940 Primary Insurance: [facility] MEDICARE SOLUTIONS Anticipated DC Date: 07-19-2018 Planned Disposition: Nursing Home Facility External Planned Provider: [facility], MEDICARE REHAB BED DCP follow-up note: CM SPOKE TO MACI OF INPATIENT REHAB WHO INFORMED CM THAT PT'S INSURANCE DECLINED INPATIENT REHAB, SUGGESTED [facility]. CM MET WITH PT AND DAUGHTER IN ROOM, DISCUSSED INPATIENT DENIAL BY INSURANCE AND AVAILABILITY OF [facility] PROVIDERS AND LOCATIONS. PT'S DAUGHTER WORKED AT [facility] AND PT STATES SHE WANTS TO REHAB THERE. CM EXPLAINED THAT THE FACILITY WOULD HAVE TO REVIEW AND ACCEPT AND PT'S INSURANCE WOULD HAVE TO AUTHORIZE SERVICES AT FACILITY. PT REPORTS UNDERSTANDING. SIGNED CHOICE FOR 1- [facility] AND 2-[facility]. IMPORTANT MESSAGE FROM MEDICARE PROVIDED AND EXPLAINED. CM CALLED [facility], , LEFT MESSAGE FOR [facility] REGARDING NEW REFERRAL FOR REHAB. CM FAXED REFERRAL TO [facility] AT [phone]. Andrew Butcher, CASE MANAGEMENT DCP- Discharge Planning Updated by [id number]: Andrew Butcher on 07/12/18 4:[address] Patient Name: MADELINE ROBINS Admission Status: ER Accout number: [id number] Admission Date: 07-08-2018 : 1940 Admission Diagnosis:HEART FAILURE, UNSPECIFIED Attending: ALYSSA GOLDEN Current LOS: 4 Anticipated DC Date: Planned Disposition: Inpatient Rehab Primary Insurance: [facility] MEDICARE SOLUTIONS PLANNED EXTERNAL PROVIDER: [facility] INPATIENT REHAB Discharge Planning Comments: CM RECIEVED ORDER FOR INPATIENT REHAB PRESCREENING. CM MET WITH PT AND DAUGHTER IN ROOM TO DISCUSS DISCHARGE PLANNING AND NEEDS. MADELINE ROBINS provided verbal consent to discuss current and ongoing needs with/in the presence of: RICHARD HALL. PT WANTS [facility] AND WANTS DAUGHTER ALEXI REMOVED EMERGENCY CONTACT. PT REPORTS LIVING AT HOME INDEPENDENTLY WITH FAMILY. PT HASHOME AND PORTABLE OXYGEN THAT WAS SET UP THE OTHER DAY WITH [facility]. PT ALSO HAS A CANE. PT HAS NO OUTSIDE SERVICES ASSISTING IN THE HOME. CM DISCUSSED AVAILABILITY OF HOME HEALTH, REHAB SERVICES AND MEDICAL EQUIPMENT. PT WANTS REHAB AT [facility], REPORTS HER DAUGHTER WILL PICK HER UP FOR DISCHARGE HOME. IMPORTANT MESSAGE FROM MEDICARE PROVIDED AND EXPLAINED. CM NOTIFIED R[facility] OF ADMISSIONS OF PT'S REQUEST TO REMOVE DAUGHTER ALEXI LEVI EMERGENCY CONTACT AND TO ADD DAUGHTER RICHARD FISCHER, . CM SPOKE TO MACI OF INPATIENT REHAB, NOTIFIED OF PT'S WANTING REHAB AT [place]. PT HAS MANAGED MEDICARE AND WILL REQUIRE PRIOR AUTHORIZATION FROM INSURANCE FOR REHAB SERVICES. CM TO CONTINUE TO FOLLOW AND ASSIST NEEDED. Career Development Associate: Andrew Butcher DCPIA - Discharge Planning Initial Assessment Updated by [email or web address]: Andrew Butcher on 07/12/18 5:31 pm * Is the patient Alert and Oriented? Yes * How many steps to enter\exit or inside your home? NONE * PCP DR. JOCELYN LUJAN IN [facility] * [facility]acy [facility] IN [place] * Preadmission Environment Home with Family * ADLs Independent * Equipment Home Photo Therapy * Other Equipment HOME AND PORTABLE OXYGEN - *NEEDS NEW OXYGEN QUALIFICATION TESTING PRIOR TO DISCHARGE HOME [facility] * List name and contact numbers for known caregivers / representatives who currently or will assist patient after discharge: RICHARD MALINEY, DTR, * Verbal permission to speak to the caregivers and representatives has been obtained from the patient. Yes * Community resources currently utilized None * Please name any agencies selected above. NONE * Additional services required to return to the preadmission environment? No * Can the patient safely return to the preadmission environment? Yes * Has this patient been hospitalized within the prior 30 days at any hospital? Yes Coverage Notice Reviewer: JILLIAN Butcher Notice Issued Date-Time: 07/12/2018 14:50 Notice Type: IM Discharge Notice Notice Delivered To: Patient Relationship to Patient: Documentation Clerk Name: Delivery Method: HAND - Hand Delivered Susan Days: Prior Verbal Notification: Recipient Understood Notice: Yes Recipient Signature: Yes Med Rec Note Co-signed by Attending: Coverage Notice Comment: Reviewer: JILLIAN Butcher Notice Issued Date-Time: 07/18/2018 11:00 Notice Type: Patient Choice Letter Notice Delivered To: Patient Relationship to Patient: Documentation Clerk Name: Delivery Method: HAND - Hand Delivered Susan Days: Prior Verbal Notification: Recipient Understood Notice: Yes Recipient Signature: Yes Med Rec Note Co-signed by Attending: Coverage Notice Comment: 1-[facility], 2-[facility] Reviewer: [id number] Butcher Notice Issued Date-Time: 07/18/2018 11:00 Notice Type: IM Discharge Notice Notice Delivered To: Patient Relationship to Patient: Documentation Clerk Name: Delivery Method: HAND - Hand Delivered Susan Days: Prior Verbal Notification: Recipient Understood Notice: Yes Recipient Signature: Yes Med Rec Note Co-signed by Attending: Coverage Notice Comment: Last DP export: 07/18/18 1:43 p Patient Name: MADELINE ROBINS Page [id number] at 1501 All edits/amendments must be made on the electronic document DICTATION DATE: 07/18/18 1500 CUSTOMER SERVICE VOICE: RUBA 07/18/18 1500 RPT#: [id number] DC DATE: STATUS: ADM IN [facility] [address] [place] [address] END OF REPORT
--- NOTE | 2018-07-18 15:29 | MORECARE ---
CASE MANAGEMENT DISCHARGE SUMMARY PATIENT: MADELINE ROBINS UNIT: [id number] ADM DATE: 07/08/18 AGE: 77 : 38 SEX: F ROOM/BED: D.9528 AUTHOR: TATA,DOC PHYSICIAN: REFERRING PHYSICIAN: ALYSSA GOLDEN MD DATE OF SERVICE: 07/18/18 Discharge Plan Patient Name: MADELINE ROBINS Facility: [facility]:[place] : 1940 Planned Disposition: Retirement Facility Anticipated Discharge Date: 07/19/18 Discharge Date: Expected LOS: 11 Initial Reviewer: [id number] Initial Review Date: 07/12/2018 Generated: 07/18/18 4:29 pm Comments DCP- Discharge Planning Updated by [email or web address]: Andrew Butcher on 07/18/18 1:[address] Patient Name: MADELINE ROBINS Encounter No: [id number] : 1940 Primary Insurance: [facility] MEDICARE SOLUTIONS Anticipated DC Date: 07-19-2018 Planned Disposition: Retirement Facility External Planned Provider: [facility], MEDICARE REHAB BED DCP follow-up note: CM SPOKE TO MACI OF INPATIENT REHAB WHO INFORMED CM THAT PT'S INSURANCE DECLINED INPATIENT REHAB, SUGGESTED [facility]. CM MET WITH PT AND DAUGHTER IN ROOM, DISCUSSED INPATIENT DENIAL BY INSURANCE AND AVAILABILITY OF [facility] RE[facility]AB PROVIDERS AND LOCATIONS. PT'S DAUGHTER WORKED AT [facility] AND PT STATES SHE WANTS TO REHAB THERE. CM EXPLAINED THAT THE FACILITY WOULD HAVE TO REVIEW AND ACCEPT AND PT'S INSURANCE WOULD HAVE TO AUTHORIZE SERVICES AT FACILITY. PT REPORTS UNDERSTANDING. SIGNED CHOICE FOR 1- [facility] AND 2-[facility]. IMPORTANT MESSAGE FROM MEDICARE PROVIDED AND EXPLAINED. CM CALLED [facility], , LEFT MESSAGE FOR [facility] REGARDING NEW REFERRAL FOR REHAB. CM FAXED REFERRAL TO [facility] AT [phone]. Andrew Butcher, CASE MANAGEMENT DCP- Discharge Planning Updated by [id number]: Andrew Butcher on 07/12/18 4:[address] Patient Name: MADELINE ROBINS Admission Status: ER Accout number: [id number] Admission Date: 07-08-2018 : 1940 Admission Diagnosis:HEART FAILURE, UNSPECIFIED Attending: ALYSSA GOLDEN Current LOS: 4 Anticipated DC Date: Planned Disposition: Inpatient Rehab Primary Insurance: [facility] MEDICARE SOLUTIONS PLANNED EXTERNAL PROVIDER: [facility] INPATIENT REHAB Discharge Planning Comments: CM RECIEVED ORDER FOR INPATIENT REHAB PRESCREENING. CM MET WITH PT AND DAUGHTER IN ROOM TO DISCUSS DISCHARGE PLANNING AND NEEDS. MADELINE ROBINS provided verbal consent to discuss current and ongoing needs with/in the presence of: RICHARD HALL. PT WANTS [facility] AND WANTS DAUGHTER ALEXI REMOVED EMERGENCY CONTACT. PT REPORTS LIVING AT HOME INDEPENDENTLY WITH FAMILY. PT HASHOME AND PORTABLE OXYGEN THAT WAS SET UP THE OTHER DAY WITH [facility]. PT ALSO HAS A CANE. PT HAS NO OUTSIDE SERVICES ASSISTING IN THE HOME. CM DISCUSSED AVAILABILITY OF HOME HEALTH, REHAB SERVICES AND MEDICAL EQUIPMENT. PT WANTS REHAB AT [facility], REPORTS HER DAUGHTER WILL PICK HER UP FOR DISCHARGE HOME. IMPORTANT MESSAGE FROM MEDICARE PROVIDED AND EXPLAINED. CM NOTIFIED RODERICK OF ADMISSIONS OF PT'S REQUEST TO REMOVE DAUGHTER ALEXI LEVI EMERGENCY CONTACT AND TO ADD DAUGHTER RICHARD FISHCER, . CM SPOKE TO MACI OF INPATIENT REHAB, NOTIFIED OF PT'S WANTING REHAB AT [place] [place]. PT HAS MANAGED MEDICARE AND WILL REQUIRE PRIOR AUTHORIZATION FROM INSURANCE FOR REHAB SERVICES. CM TO CONTINUE TO FOLLOW AND ASSIST NEEDED. Technician Preventative Medicine: Andrew Butcher DCPIA - Discharge Planning Initial Assessment Updated by [email or web address]: Andrew Butcher on 07/12/18 5:31 pm * Is the patient Alert and Oriented? Yes * How many steps to enter\exit or inside your home? NONE * PCP DR[facility] JOCELYN LUJAN IN [facility] * Pharmacy [facility] IN [place] * Preadmission Environment Home with Family * ADLs Independent * Equipment Home Photo Therapy * Other Equipment HOME AND PORTABLE OXYGEN - *NEEDS NEW OXYGEN QUALIFICATION TESTING PRIOR TO DISCHARGE HOME [facility] * List name and contact numbers for known caregivers / representatives who currently or will assist patient after discharge: RICHARD MALINEY, DTR, * Verbal permission to speak to the caregivers and representatives has been obtained from the patient. Yes * Community resources currently utilized None * Please name any agencies selected above. NONE * Additional services required to return to the preadmission environment? No * Can the patient safely return to the preadmission environment? Yes * Has this patient been hospitalized within the prior 30 days at any hospital? Yes External Providers External Provider: [facility] Next Contact Date: 07/18/2018 Service Request Date: Service Type: Resolution: Reviewer: Comments: Coverage Notice Reviewer: [id number] Butcher Notice Issued Date-Time: 07/12/2018 14:50 Notice Type: IM Discharge Notice Notice Delivered To: Patient Relationship to Patient: Audio Visual Production Specialist Name: Delivery Method: HAND - Hand Delivered Susan Days: Prior Verbal Notification: Recipient Understood Notice: Yes Recipient Signature: Yes Med Rec Note Co-signed by Attending: Coverage Notice Comment: Reviewer: JILLIAN Butcher Notice Issued Date-Time: 07/18/2018 11:00 Notice Type: Patient Choice Letter Notice Delivered To: Patient Relationship to Patient: Audio Visual Production Specialist Name: Delivery Method: HAND - Hand Delivered Susan Days: Prior Verbal Notification: Recipient Understood Notice: Yes Recipient Signature: Yes Med Rec Note Co-signed by Attending: Coverage Notice Comment: 1-[facility], 2-[facility] Reviewer: [id number] Wanda Butcher Notice Issued Date-Time: 07/18/2018 11:00 Notice Type: IM Discharge Notice Notice Delivered To: Patient Relationship to Patient: Audio Visual Production Specialist Name: Delivery Method: HAND - Hand Delivered Susan Days: Prior Verbal Notification: Recipient Understood Notice: Yes Recipient Signature: Yes Med Rec Note Co-signed by Attending: Coverage Notice Comment: Last DP export: 07/18/18 2:01 p Patient Name: MADELINE ROBINS Page 00993 at 1529 All edits/amendments must be made on the electronic document DICTATION DATE: 07/18/18 152 SENIOR WEB DEVELOPER: RUBA 07/18/18 1529 RPT#: [id number] DC DATE: STATUS: ADM IN [facility] [address] [place] [address] END OF REPORT
--- NOTE | 2018-07-18 15:41 | MORECARE ---
CASE MANAGEMENT DISCHARGE SUMMARY PATIENT: MADELINE ROBINS UNIT: [id number] ADM DATE: 07/08/18 AGE: 77 : 38 SEX: F ROOM/BED: D.7446 AUTHOR: TATA,DOC PHYSICIAN: REFERRING PHYSICIAN: ALYSSA GOLDEN MD DATE OF SERVICE: 07/18/18 Discharge Plan Patient Name: MADELINE ROBINS Facility: [facility]:[place] : 1940 Planned Disposition: [facility] Facility Anticipated Discharge Date: 07/19/18 Discharge Date: Expected LOS: 11 Initial Reviewer: [id number] Initial Review Date: 07/12/2018 Generated: 07/18/18 4:41 pm Comments DCP- Discharge Planning Updated by [email or web address]: Andrew Butcher on 07/18/18 2:[address] Patient Name: MADELINE ROBINS Encounter No: [id number] : 1940 Primary Insurance: [facility] MEDICARE SOLUTIONS Anticipated DC Date: 07-19-2018 Planned Disposition: [facility] Facility External Planned Provider: [facility], MEDICARE REHAB BED DCP follow-up note: CM RECEIVED CALL FROM MUNA OF [facility], THEY ARE OUT OF NETWORK WITH PT'S INSURANCE. CM FA[facility]ED REFERR[facility] AT [phone]. CM NOTIFIED [facility] OF REFERRAL FOR REHAB AT [facility], . CM WAITING ADMISSION DETERMINATION WELL INSURANCE AUTHORIZATION FOR REHAB AT [facility] IN [place]. Andrew Butcher, CASE CASSIA DCP- Discharge Planning Updated by [id number]: Andrew Butcher on 07/18/18 1:[address] Patient Name: MADELINE ROBINS Encounter No: [id number] : 1940 Primary Insurance: [facility] MEDICARE SOLUTIONS Anticipated DC Date: 07-19-2018 Planned Disposition: [facility] Facility External Planned Provider: [facility], MEDICARE REHAB BED DCP follow-up note: CM SPOKE TO MACI OF INPATIENT REHAB WHO INFORMED CM THAT PT'S INSURANCE DECLINED INPATIENT REHAB, SUGGESTED [facility]. CM MET WITH PT AND DAUGHTER IN ROOM, DISCUSSED INPATIENT DENIAL BY INSURANCE AND AVAILABILITY OF RESIDENTIAL REHAB PROVIDERS AND LOCATIONS. PT'S DAUGHTER WORKED AT [facility] AND PT STATES SHE WANTS TO REHAB THERE. CM EXPLAINED THAT THE FACILITY WOULD HAVE TO REVIEW AND ACCEPT AND PT'S INSURANCE WOULD HAVE TO AUTHORIZE SERVICES AT FACILITY. PT REPORTS UNDERSTANDING. SIGNED CHOICE FOR 1- [facility] AND 2-[facility]. IMPORTANT MESSAGE FROM MEDICARE PROVIDED AND EXPLAINED. CM CALLED [facility], , LEFT MESSAGE FOR [facility] REGARDING NEW REFERRAL FOR REHAB. CM FAXED REFERRAL TO [facility] AT [phone]. Andrew Butcher, CASE MANAGEMENT DCP- Discharge Planning Updated by [id number]: Andrew Butcher on 07/12/18 4:[address] Patient Name: MADELINE ROBINS Admission Status: ER Accout number: [id number] Admission Date: 07-08-2018 : 1940 Admission Diagnosis:HEART FAILURE, UNSPECIFIED Attending: ALYSSA GOLDEN Current LOS: 4 Anticipated DC Date: Planned Disposition: Inpatient Rehab Primary Insurance: [facility] MEDICARE SOLUTIONS PLANNED EXTERNAL PROVIDER: [facility] INPATIENT REHAB Discharge Planning Comments: CM RECIEVED ORDER FOR INPATIENT REHAB PRESCREENING. CM MET WITH PT AND DAUGHTER IN ROOM TO DISCUSS DISCHARGE PLANNING AND NEEDS. MADELINE ROBINS provided verbal consent to discuss current and ongoing needs with/in the presence of: RICHARD HALL. PT WANTS [facility] AND WANTS DAUGHTER ALEXI REMOVED EMERGENCY CONTACT. PT REPORTS LIVING AT HOME INDEPENDENTLY WITH FAMILY. PT HASHOME AND PORTABLE OXYGEN THAT WAS SET UP THE OTHER DAY WITH [facility]. PT ALSO HAS A CANE. PT HAS NO OUTSIDE SERVICES ASSISTING IN THE HOME. CM DISCUSSED AVAILABILITY OF HOME HEALTH, REHAB SERVICES AND MEDICAL EQUIPMENT. PT WANTS REHAB AT [facility], REPORTS HER DAUGHTER WILL PICK HER UP FOR DISCHARGE HOME. IMPORTANT MESSAGE FROM MEDICARE PROVIDED AND EXPLAINED. CM NOTIFIED RODERICK OF ADMISSIONS OF PT'S REQUEST TO REMOVE DAUGHTER ALEXI LEVI EMERGENCY CONTACT AND TO ADD DAUGHTER RICHARD FISCHER, . CM SPOKE TO [facility] OF INPATIENT REHAB, NOTIFIED OF PT'S WANTING REHAB AT [place]. PT HAS MANAGED MEDICARE AND WILL REQUIRE PRIOR AUTHORIZATION FROM INSURANCE FOR REHAB SERVICES. CM TO CONTINUE TO FOLLOW AND ASSIST NEEDED. Director Of Photography: Andrew Butcher DCPIA - Discharge Planning Initial Assessment Updated by [email or web address]: Andrew Butcher on 07/12/18 5:31 pm * Is the patient Alert and Oriented? Yes * How many steps to enter\exit or inside your home? NONE * PCP DR[facility] JOCELYN LUJAN IN [facility] * [facility]acy [facility] IN [place] * Preadmission Environment Home with Family * ADLs Independent * Equipment Home Photo Therapy * Other Equipment HOME AND PORTABLE OXYGEN - *NEEDS NEW OXYGEN QUALIFICATION TESTING PRIOR TO DISCHARGE HOME [facility] * List name and contact numbers for known caregivers / representatives who currently or will assist patient after discharge: RICHARD FISCHER, DTR, * Verbal permission to speak to the caregivers and representatives has been obtained from the patient. Yes * Community resources currently utilized None * Please name any agencies selected above. NONE * Additional services required to return to the preadmission environment? No * Can the patient safely return to the preadmission environment? Yes * Has this patient been hospitalized within the prior 30 days at any hospital? Yes Coverage Notice Reviewer: [id number] Wanda Butcher Notice Issued Date-Time: 07/12/2018 14:50 Notice Type: IM Discharge Notice Notice Delivered To: Patient Relationship to Patient: Floor Installer Name: Delivery Method: HAND - Hand Delivered Susan Days: Prior Verbal Notification: Recipient Understood Notice: Yes Recipient Signature: Yes Med Rec Note Co-signed by Attending: Coverage Notice Comment: Reviewer: JILLIAN Butcher Notice Issued Date-Time: 07/18/2018 11:00 Notice Type: Patient Choice Letter Notice Delivered To: Patient Relationship to Patient: Floor Installer Name: Delivery Method: HAND - Hand Delivered Susan Days: Prior Verbal Notification: Recipient Understood Notice: Yes Recipient Signature: Yes Med Rec Note Co-signed by Attending: Coverage Notice Comment: 1-[facility], 2-[facility] Reviewer: [id number] Wanda Butcher Notice Issued Date-Time: 07/18/2018 11:00 Notice Type: IM Discharge Notice Notice Delivered To: Patient Relationship to Patient: Floor Installer Name: Delivery Method: HAND - Hand Delivered Susan Days: Prior Verbal Notification: Recipient Understood Notice: Yes Recipient Signature: Yes Med Rec Note Co-signed by Attending: Coverage Notice Comment: Last DP export: 07/18/18 2:29 p Patient Name: MADELINE ROBINS Page [id number] at 1541 All edits/amendments must be made on the electronic document DICTATION DATE: 07/18/181540 NATIONAL STORMWATER LEADER: RUBA 07/18/181540 RPT#: [id number] DC DATE: STATUS: ADM IN [facility] [address] [place] [address] END OF REPORT
[2018-07-18 16:25] VITALS: BP 98/40
--- NOTE | 2018-07-18 19:45 | NUR ---
INITIAL ROUNDS COMPLETED. PT RESTING COMFORTABLY IN BED. PM MEDS GIVEN. PT HAS NO COMPLAINTS AT THIS TIME. DAUGHTER NOW AT BEDSIDE. WCTM AND FOLLOW POC. CL IN REACH, SR UP X2, BED IN LOW POSITION.
[2018-07-18 20:00] VITALS: BP 105/60
[2018-07-19 04:00] VITALS: BP 110/60
[2018-07-19 04:02] LABS: BASOPHILS 0.3 % (0-2); EOSINOPHILS 1.6 % (0-7); HEMATOCRIT 32.6 % (36.0-48.0); HEMOGLOBIN 10.6 g/dL (12-16); IMMATURE GRANULOCYTES 0.3 % (0-5); LYMPHOCYTES 24.5 % (15-50); MCH 30.8 pg (26.0-34.0); MCHC 32.5 g/dL (31.0-37.0); MCV 94.8 fL (80.0-100.0); MEAN PLATELET VOLUME 11.6 fL (7.4-10.4); NEUTROPHILS 65.3 % (40-80); PLATELET COUNT 122 10x3/uL (130-400); RBC 3.44 10x6/uL (4.00-5.40); RDW 14.9 % (11.5-14.5); WBC 7.6 10x3/uL (4.8-10.8)
[2018-07-19 04:21] LABS: ANION GAP 6.6 mmol/L (8-16); CALCIUM 8.8 mg/dL (8.5-10.1); CARBON DIOXIDE 35.8 mmol/L (21.0-32.0); CREATININE - SERUM 1.4 mg/dL (0.6-1.3); MAGNESIUM - SERUM 2.2 mg/dL (1.8-2.4); POTASSIUM - SERUM 4.4 mmol/L (3.5-5.1)
--- NOTE | 2018-07-19 06:41 | NUR ---
PT RESTING COMFORTABLY IN BED WITH DAUGHTER AT BEDISDE. RR EVEN AND UL, NO S/S OF DISTRESS. NO PAIN OR DISCMFORT NOTED AT THIS TIME. MENESES DRAINING CLOUDY YELLOW URINE. WILL PASS ON TO DAY SHIFT. SR UP X2, BED ALARM ON, CL IN REACH, BED IN LOWEST POSITION.
--- NOTE | 2018-07-19 07:25 | NUR ---
PT ASLEEP, DID NOT WAKE WHEN I ENTERED. DID NOT FURTHER DISTURB AT HIS TIME. CL IN REACH.
[2018-07-19 09:02] VITALS: BP 99/48
--- NOTE | 2018-07-19 10:15 | NUR ---
PT REQUESTS WE SKIP NOON VITALS. STATES ITS CUM[place]ERSON AND SHE'S TIRED AND WOULD LIKE TO REST. CL IN REACH.
--- NOTE | 2018-07-19 13:03 | NUR ---
RESP UL ON . GIDEON LOPEZ. CALL LIGHT IN REACH. WILL CONT. PLAN OF CARE.
--- NOTE | 2018-07-19 13:06 | NUR ---
OT NOTE: PT REMAINS VERY LETHARGIC; FALLS ASLEEP IN CHAIR AND DIFFICULT TO AROUSE. TRANSFERS WITH MIN ASSIST; AMB IN ROOM WITH RW AND MIN ASSIST; BED MOB WITH MIN ASSIST. RUTH CANELA, OTR/L
--- NOTE | 2018-07-19 15:00 | MORECARE ---
CASE MANAGEMENT DISCHARGE SUMMARY PATIENT: MADELINE ROBINS UNIT: [id number] ADM DATE: 07/08/18 AGE: 77 : 38 SEX: F ROOM/BED: D.2101 AUTHOR: TATA,DOC PHYSICIAN: REFERRING PHYSICIAN: ALYSSA GOLDEN MD DATE OF SERVICE: 07/19/18 Discharge Plan Patient Name: MADELINE ROBINS Facility: [facility]:[place] : 1940 Planned Disposition: Penitentiary Facility Anticipated Discharge Date: 07/19/18 Discharge Date: Expected LOS: 11 Initial Reviewer: [id number] Initial Review Date: 07/12/2018 Generated: 07/19/18 3:59 pm Comments DCP- Discharge Planning Updated by [id number]: Andrew Butcher on 07/18/18 2:[address] Patient Name: MADELINE ROBINS Encounter No: [id number] : 1940 Primary Insurance: [facility] MEDICARE SOLUTIONS Anticipated DC Date: 07-19-2018 Planned Disposition: Penitentiary Facility External Planned Provider: [facility], MEDICARE REHAB BED DCP follow-up note: CM RECEIVED CALL FROM MUNA [facility], THEY ARE OUT OF NETWORK WITH PT'S INSURANCE. CM FAXED REFERRAL TO [facility] VIA MARTIN AT [phone]. CM NOTIFIED MARTIN OF REFERRAL FOR REHAB AT [facility], . CM WAITING ADMISSION DETERMINATION WELL INSURANCE AUTHORIZATION FOR REHAB AT [facility] IN [place]. Andrew Butcher, CASE CASSIA DCP- Discharge Planning Updated by [id number]: Andrew Butcher on 07/18/18 1:[address] Patient Name: MADELINE ROBINS Encounter No: [id number] : 1940 Primary Insurance: [facility] MEDICARE SOLUTIONS Anticipated DC Date: 07-19-2018 Planned Disposition: Penitentiary Facility External Planned Provider: [facility], MEDICARE REHAB BED DCP follow-up note: CM SPOKE TO MACI OF INPATIENT REHAB WHO INFORMED CM THAT PT'S INSURANCE DECLINED INPATIENT REHAB, SUGGESTED LONGTERM REHAB. CM MET WITH PT AND DAUGHTER IN ROOM, DISCUSSED INPATIENT DENIAL BY INSURANCE AND AVAILABILITY OF LONGTERM REHAB PROVIDERS AND LOCATIONS. PT'S DAUGHTER WORKED AT [facility] AND PT STATES SHE WANTS TO REHAB THERE. CM EXPLAINED THAT THE FACILITY WOULD HAVE TO REVIEW AND ACCEPT AND PT'S INSURANCE WOULD HAVE TO AUTHORIZE SERVICES AT FACILITY. PT REPORTS UNDERSTANDING. SIGNED CHOICE FOR 1- [facility] AND 2-[facility]. IMPORTANT MESSAGE FROM MEDICARE PROVIDED AND EXPLAINED. CM CALLED [facility], , LEFT MESSAGE FOR [facility] REGARDING NEW REFERRAL FOR REHAB. CM FAXED REFERRAL TO [facility] AT [phone]. Andrew Butcher, CASE MANAGEMENT DCP- Discharge Planning Updated by [id number]: Andrew Butcher on 07/12/18 4:[address] Patient Name: MADELINE ROBINS Admission Status: ER Accout number: [id number] Admission Date: 07-08-2018 : 1940 Admission Diagnosis:HEART FAILURE, UNSPECIFIED Attending: ALYSSA GOLDEN Current LOS: 4 Anticipated DC Date: Planned Disposition: Inpatient Rehab Primary Insurance: [facility] MEDICARE SOLUTIONS PLANNED EXTERNAL PROVIDER: [facility] INPATIENT REHAB Discharge Planning Comments: CM RECIEVED ORDER FOR INPATIENT REHAB PRESCREENING. CM MET WITH PT AND DAUGHTER IN ROOM TO DISCUSS DISCHARGE PLANNING AND NEEDS. MADELINE ROBINS provided verbal consent to discuss current and ongoing needs with/in the presence of: RICHARD HALL. PT WANTS [facility] EMER[facility]TA[facility] AND WANTS DAUGHTER ALEXI REMOVED EMERGENCY CONTACT. PT REPORTS LIVING AT HOME INDEPENDENTLY WITH FAMILY. PT HASHOME AND PORTABLE OXYGEN THAT WAS SET UP THE OTHER DAY WITH [facility]. PT ALSO HAS A CANE. PT HAS NO OUTSIDE SERVICES ASSISTING IN THE HOME. CM DISCUSSED AVAILABILITY OF HOME HEALTH, REHAB SERVICES AND MEDICAL EQUIPMENT. PT WANTS REHAB AT [facility], REPORTS HER DAUGHTER WILL PICK HER UP FOR DISCHARGE HOME. IMPORTANT MESSAGE FROM MEDICARE PROVIDED AND EXPLAINED. CM NOTIFIED RODERICK OF ADMISSIONS OF PT'S REQUEST TO REMOVE DAUGHTER ALEXI LEVI EMERGENCY CONTACT AND TO ADD DAUGHTER RICHARD FISCHER, . CM SPOKE TO MACI OF INPATIENT REHAB, NOTIFIED OF PT'S WANTING REHAB AT [place]. PT HAS MANAGED MEDICARE AND WILL REQUIRE PRIOR AUTHORIZATION FROM INSURANCE FOR REHAB SERVICES. CM TO CONTINUE TO FOLLOW AND ASSIST NEEDED. Parimutuel Ticket Cashier: Andrew Butcher DCPIA - Discharge Planning Initial Assessment Updated by [id number]: Andrew Butcher on 07/12/18 5:31 pm * Is the patient Alert and Oriented? Yes * How many steps to enter\exit or inside your home? NONE * PCP DR. JOCELYN LUJAN IN [facility] * Pharmacy [facility] IN [place] * Preadmission Environment Home with Family * ADLs Independent * Equipment Home Photo Therapy * Other Equipment HOME AND PORTABLE OXYGEN - *NEEDS NEW OXYGEN QUALIFICATION TESTING PRIOR TO DISCHARGE HOME [facility] PAT[facility] * List name and contact numbers for known caregivers / representatives who currently or will assist patient after discharge: RICHARD FISCHER, DTR, * Verbal permission to speak to the caregivers and representatives has been obtained from the patient. Yes * Community resources currently utilized None * Please name any agencies selected above. NONE * Additional services required to return to the preadmission environment? No * Can the patient safely return to the preadmission environment? Yes * Has this patient been hospitalized within the prior 30 days at any hospital? Yes Coverage Notice Reviewer: [id number] Wanda Butcher Notice Issued Date-Time: 07/12/2018 14:50 Notice Type: IM Discharge Notice Notice Delivered To: Patient Relationship to Patient: Pillowcase Folder Name: Delivery Method: HAND - Hand Delivered Susan Days: Prior Verbal Notification: Recipient Understood Notice: Yes Recipient Signature: Yes Med Rec Note Co-signed by Attending: Coverage Notice Comment: Reviewer: JILLIAN Butcher Notice Issued Date-Time: 07/18/2018 11:00 Notice Type: Patient Choice Letter Notice Delivered To: Patient Relationship to Patient: Pillowcase Folder Name: Delivery Method: HAND - Hand Delivered Susan Days: Prior Verbal Notification: Recipient Understood Notice: Yes Recipient Signature: Yes Med Rec Note Co-signed by Attending: Coverage Notice Comment: 1-[facility], 2-[facility] Reviewer: [id number] Wanda Butcher Notice Issued Date-Time: 07/18/2018 11:00 Notice Type: IM Discharge Notice Notice Delivered To: Patient Relationship to Patient: Pillowcase Folder Name: Delivery Method: HAND - Hand Delivered Susan Days: Prior Verbal Notification: Recipient Understood Notice: Yes Recipient Signature: Yes Med Rec Note Co-signed by Attending: Coverage Notice Comment: Last DP export: 07/18/18 2:41 p Patient Name: MADELINE ROBINS Page [id number] at 1500 All edits/amendments must be made on the electronic document DICTATION DATE: 07/19/181458 ENTERPRISE APPLICATIONS MANAGER: RBUA 07/19/181458 RPT#: [id number] DC DATE: STATUS: ADM IN [facility] [address] [place] [address] END OF REPORT
--- NOTE | 2018-07-19 15:10 | MORECARE ---
CASE MANAGEMENT DISCHARGE SUMMARY PATIENT: MADELINE ROBINS UNIT: [id number] ADM DATE: 07/08/18 AGE: 77 : 38 SEX: F ROOM/BED: D.9452 AUTHOR: TATA,DOC PHYSICIAN: REFERRING PHYSICIAN: ALYSSA GOLDEN MD DATE OF SERVICE: 07/19/18 Discharge Plan Patient Name: MADELINE ROBINS Facility: [facility]:[place] : 1940 Planned Disposition: Mcfp Facility Anticipated Discharge Date: 07/19/18 Discharge Date: Expected LOS: 11 Initial Reviewer: [id number] Initial Review Date: 07/12/2018 Generated: 07/19/18 4:10 pm Comments DCP- Discharge Planning Updated by [id number]: Andrew Butcher on 07/19/18 2:[address] Patient Name: MADELINE ROBINS Encounter No: [id number] : 1940 Primary Insurance: [facility] MEDICARE SOLUTIONS Anticipated DC Date: 07-19-2018 Planned Disposition: Mcfp Facility External Planned Provider: [facility] MEDICARE REHAB BED DCP follow-up note: CM RECEIVED CALL FROM [facility]NA [facility], THEY ARE OUT OF NETWORK WITH PT'S INSURANCE. CM FAXED REFERRAL TO [facility] VIA MARTIN AT [phone]. CM NOTIFIED MARTIN OF REFERRAL FOR REHAB AT [facility], . CM WAITING ADMISSION DETERMINATION WELL INSURANCE AUTHORIZATION FOR REHAB AT [facility] IN [place]. Andrew Butcher, CASE MANAGEMENT Appended by Andrew Butcher on 07/19/2018 15:03 GREENKEEPER: CM RECEIVED MESSAGE FROM MARTIN OF [facility], THEY HAVE ACCEPTED PT FOR REHAB AND CANNOT ADJUNCT PROFESSOR OF [employer]. [employer]ISTORY PT IN [place] UNTIL 07-22-18; [facility] WOULD ACCEPT PT ON 07-20-18 IF FAMILY CAN TRANSPORT. CM REVIEWED CHART, PT REQUIRES OXYGEN AT 3LNC. CM SPOKE TO PT WHO IS IN AGREEMENT WITH REHAB AT [facility], REPORTS HAVING PORTABLE OXYGEN BUT DOES NOT KNOW IF HER DAUGHTER CAN DRIVE HER TO REHAB TOMORROW. PT'S DAUGHTER AT [employer] APPOINTMENT NOW AND WILL BE BACK SHORTLY, PT ASKED CM TO TALK TO HER DAUGHTER ABOUT TRANSPORATATION ARRANGEMENTS. [facility] CAN ACCEPT PT 1-12-19 FOR REHAB IF FAMILY CAN TRANSPORT PT TO REHAB IN [place]. OTHERWISE, [facility] WILL ACCEPT PT ON 07-22-18 WHEN THEIR [place] CAN ADJUNCT PROFESSOR OF [employer]. HISTORY PT. FOR DISCHARGE, FAX DISCHARGE INFORMATION TO [facility] AT [phone]. CALL NURSE REPORT TO [facility] AT [phone]. RAIMUNDO KEITH DCP- Discharge Planning Updated by [id number]: Andrew Butcher on 07/18/18 1:[address] Patient Name: MADELINE ROBINS Encounter No: [id number] : 1940 Primary Insurance: [facility] MEDICARE SOLUTIONS Anticipated DC Date: 07-19-2018 Planned Disposition: Mcfp Facility External Planned Provider: [facility] MEDICARE REHAB BED DCP follow-up note: CM SPOKE TO MACI OF INPATIENT REHAB WHO INFORMED CM THAT PT'S INSURANCE DECLINED INPATIENT REHAB, SUGGESTED [facility] REHAB. CM MET WITH PT AND DAUGHTER IN ROOM, DISCUSSED INPATIENT DENIAL BY INSURANCE AND AVAILABILITY OF [facility]DC REHAB PROVIDERS AND LOCATIONS. PT'S DAUGHTER WORKED AT [facility] AND PT STATES SHE WANTS TO REHAB THERE. CM EXPLAINED THAT THE FACILITY WOULD HAVE TO REVIEW AND ACCEPT AND PT'S INSURANCE WOULD HAVE TO AUTHORIZE SERVICES AT FACILITY. PT REPORTS UNDERSTANDING. SIGNED CHOICE FOR 1- [facility] AND 2-[facility]. IMPORTANT MESSAGE FROM MEDICARE PROVIDED AND EXPLAINED. CM CALLED [facility], , LEFT MESSAGE FOR [facility]NA REGARDING NEW REFERRAL FOR REHAB. CM FAXED REFERRAL TO [facility] AT [phone]. RAIMUNDO Keith DCP- Discharge Planning Updated by [id number]: Andrew Butcher on 07/12/18 4:[address] Patient Name: MADELINE ROBINS Admission Status: ER Accout number: [id number] Admission Date: 07-08-2018 : 1940 Admission Diagnosis:HEART FAILURE, UNSPECIFIED Attending: ALYSSA GOLDEN Current LOS: 4 Anticipated DC Date: Planned Disposition: Inpatient Rehab Primary Insurance: [facility] MEDICARE SOLUTIONS PLANNED EXTERNAL PROVIDER: [facility] INPATIENT REHAB Discharge Planning Comments: CM RECIEVED ORDER FOR INPATIENT REHAB PRESCREENING. CM MET WITH PT AND DAUGHTER IN ROOM TO DISCUSS DISCHARGE PLANNING AND NEEDS. MADELINE ROBINS provided verbal consent to discuss current and ongoing needs with/in the presence of: RICHARD HALL. PT WANTS RICHARD EMERGENCY CONTACT AND WANTS DAUGHTER ALEXI REMOVED EMERGENCY CONTACT. PT REPORTS LIVING AT HOME INDEPENDENTLY WITH FAMILY. PT HASHOME AND PORTABLE OXYGEN THAT WAS SET UP THE OTHER DAY WITH [facility] PAT[facility]. PT ALSO HAS A CANE. PT HAS NO OUTSIDE SERVICES ASSISTING IN THE HOME. CM DISCUSSED AVAILABILITY OF HOME HEALTH, REHAB SERVICES AND MEDICAL EQUIPMENT. PT WANTS REHAB AT [facility], REPORTS HER DAUGHTER WILL PICK HER UP FOR DISCHARGE HOME. IMPORTANT MESSAGE FROM MEDICARE PROVIDED AND EXPLAINED. CM NOTIFIED RODERICK OF ADMISSIONS OF PT'S REQUEST TO REMOVE DAUGHTER ALEXI LEVI EMERGENCY CONTACT AND TO ADD DAUGHTER RICHARD FISCHER, . CM SPOKE TO MACI OF INPATIENT REHAB, NOTIFIED OF PT'S WANTING REHAB AT [place]. PT HAS MANAGED MEDICARE AND WILL REQUIRE PRIOR AUTHORIZATION FROM INSURANCE FOR REHAB SERVICES. CM TO CONTINUE TO FOLLOW AND ASSIST NEEDED. Metal Alloy Scientist: Andrew Butcher DCPIA - Discharge Planning Initial Assessment Updated by [id number]: Andrew Butcher on 07/12/18 5:31 pm * Is the patient Alert and Oriented? Yes * How many steps to enter\exit or inside your home? NONE * PCP DR[facility] JOCELYN LUJAN IN [facility] * Pharmacy [facility] IN [place] * Preadmission Environment Home with Family * ADLs Independent * Equipment Home Photo Therapy * Other Equipment HOME AND PORTABLE OXYGEN - *NEEDS NEW OXYGEN QUALIFICATION TESTING PRIOR TO DISCHARGE HOME [facility] PATIENT * List name and contact numbers for known caregivers / representatives who currently or will assist patient after discharge: RICHARD FISCHER, JASONR, * Verbal permission to speak to the caregivers and representatives has been obtained from the patient. Yes * Community resources currently utilized None * Please name any agencies selected above. NONE * Additional services required to return to the preadmission environment? No * Can the patient safely return to the preadmission environment? Yes * Has this patient been hospitalized within the prior 30 days at any hospital? Yes Coverage Notice Reviewer: [id number] - Andrew Butcher Notice Issued Date-Time: 07/12/2018 14:50 Notice Type: IM Discharge Notice Notice Delivered To: Patient Relationship to Patient: Non Ferrous Material Handler Name: Delivery Method: HAND - Hand Delivered Susan Days: Prior Verbal Notification: Recipient Understood Notice: Yes Recipient Signature: Yes Med Rec Note Co-signed by Attending: Coverage Notice Comment: Reviewer: [id number] Butcher Notice Issued Date-Time: 07/18/2018 11:00 Notice Type: Patient Choice Letter Notice Delivered To: Patient Relationship to Patient: Non Ferrous Material Handler Name: Delivery Method: HAND - Hand Delivered Susan Days: Prior Verbal Notification: Recipient Understood Notice: Yes Recipient Signature: Yes Med Rec Note Co-signed by Attending: Coverage Notice Comment: 1-[facility], 2-[facility] Reviewer: [id number] Wanda Butcher Notice Issued Date-Time: 07/18/2018 11:00 Notice Type: IM Discharge Notice Notice Delivered To: Patient Relationship to Patient: Non Ferrous Material Handler Name: Delivery Method: HAND - Hand Delivered Susan Days: Prior Verbal Notification: Recipient Understood Notice: Yes Recipient Signature: Yes Med Rec Note Co-signed by Attending: Coverage Notice Comment: Last DP export: 07/19/18 1:59 p Patient Name: MADELINE ROBINS Page [id number] at 1510 All edits/amendments must be made on the electronic document DICTATION DATE: 07/19/18 1510 IMPORT/EXPORT ADMINISTRATOR: RUBA 07/19/18 1510 RPT#: [id number] DC DATE: STATUS: ADM IN [facility] [address] [place] [address] END OF REPORT
--- NOTE | 2018-07-19 16:29 | MORECARE ---
CASE MANAGEMENT DISCHARGE SUMMARY PATIENT: MADELINE ROBINS UNIT: [id number] ADM DATE: 07/08/18 AGE: 77 : 38 SEX: F ROOM/BED: D.3203 AUTHOR: TATA,DOC PHYSICIAN: REFERRING PHYSICIAN: ALYSSA GOLDEN MD DATE OF SERVICE: 07/19/18 Discharge Plan Patient Name: MADELINE ROBINS Facility: [facility]:[place] : 1940 Planned Disposition: Long Term Facility Anticipated Discharge Date: 07/20/18 Discharge Date: Expected LOS: 12 Initial Reviewer: [id number] Initial Review Date: 07/12/2018 Generated: 07/19/18 5:29 pm Comments DCP- Discharge Planning Updated by [id number]: Presley Mcintosh on 07/19/18 3:[address] Patient Name: MADELINE ROBINS Encounter No: [id number] : 1940 Primary Insurance: [facility] MEDICARE SOLUTIONS Anticipated DC Date: 07-19-2018 Planned Disposition: Long Term Facility External Planned Provider: [facility] MEDICARE REHAB BED DCP follow-up note: CM RECEIVED CALL FROM [facility], THEY ARE OUT OF NETWORK WITH PT'S INSURANCE. CM FAXED REFERRAL TO [facility] VIA MARTIN AT [phone]. CM NOTIFIED MARTIN OF REFERRAL FOR REHAB AT [facility], . CM WAITING ADMISSION DETERMINATION WELL INSURANCE AUTHORIZATION FOR REHAB AT [facility] INTERMEDIATE [facility] IN [place]. 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 CM REVIEWED CHART, PT REQUIRES OXYGEN AT 3LNC. CM SPOKE TO PT WHO IS IN AGREEMENT WITH REHAB AT [facility], REPORTS HAVING PORTABLE OXYGEN BUT DOES NOT KNOW IF HER DAUGHTER CAN DRIVE HER TO REHAB TOMORROW. PT'S DAUGHTER AT [employer] APPOINTMENT NOW AND WILL BE BACK SHORTLY, PT ASKED CM TO TALK TO HER DAUGHTER ABOUT TRANSPORATATION ARRANGEMENTS. [facility] CAN ACCEPT PT 1-12-19 FOR REHAB IF FAMILY CAN TRANSPORT PT TO REHAB IN [place]. OTHERWISE, [facility] WILL ACCEPT PT ON 07-22-18 WHEN THEIR [place] CAN THERMOMETER PRODUCTION WORKER PT. FOR DISCHARGE, FAX DISCHARGE INFORMATION TO [facility] AT [phone]. CALL NURSE REPORT TO [facility] AT [phone]. PRESLEY MCINTOSH, CASE MANAGEMENT Appended by Presley Mcintosh on 07/19/2018 16:21 ENVIRONMENTAL COMMUNICATIONS SPECIALIST: CM CALLED AND SPOKE TO RICHARD FISCHER, DTR, , WHO WILL BRING OXYGEN AND CAN TRANSPORT PT TO REHAB AT [facility] 07-20-18. CM NOTIFIED MARTIN OF [facility] WHO INFORMED CM THAT THE FACILITY NEEDS ANOTHER BNP RESULT. CM NOTIFIED ROBERTO BALDWIN OF FACILITY REQUEST FOR LAB. [facility] CAN ACCEPT PT 07-20-18 FOR REHAB, FAMILY CAN TRANSPORT PT TO REHAB IN [place] AND HAS OXYGEN. CALL [facility], WITH BNP RESULTS 07-20-17; AFTER ACCEPTANCE, FAX DISCHARGE INFORMATION TO [facility] AT [phone]. CALL NURSE REPORT TO [facility] AT [phone]. FAMILY TO TRANSPORT. PRESLEY MCINTOSH, CASE MANAGEMENT DCP- Discharge Planning Updated by [id number]: Presley Mcintosh on 07/18/18 1:[address] Patient Name: MADELINE ROBINS Encounter No: [id number] : 1940 Primary Insurance: [facility] MEDICARE SOLUTIONS Anticipated DC Date: 07-19-2018 Planned Disposition: Long Term Facility External Planned Provider: [facility], MEDICARE REHAB BED DCP follow-up note: CM SPOKE TO MACI OF INPATIENT REHAB WHO INFORMED CM THAT PT'S INSURANCE DECLINED INPATIENT REHAB, SUGGESTED INTERMEDIATE REHAB. CM MET WITH PT AND DAUGHTER IN ROOM, DISCUSSED INPATIENT DENIAL BY INSURANCE AND AVAILABILITY OF INTERMEDIATE REHAB PROVIDERS AND LOCATIONS. PT'S DAUGHTER WORKED AT [facility] AND PT STATES SHE WANTS TO REHAB THERE. CM EXPLAINED THAT THE FACILITY WOULD HAVE TO REVIEW AND ACCEPT AND PT'S INSURANCE WOULD HAVE TO AUTHORIZE SERVICES AT FACILITY. PT REPORTS UNDERSTANDING. SIGNED CHOICE FOR 1- [facility] AND 2-[facility]. IMPORTANT MESSAGE FROM MEDICARE PROVIDED AND EXPLAINED. CM CALLED [facility], , LEFT MESSAGE FOR [facility]NA REGARDING NEW REFERRAL FOR REHAB. CM FAXED REFERRAL TO [facility] AT [phone]. Presley Mcintosh, CASE MANAGEMENT DCP- Discharge Planning Updated by [id number]: Presley Mcintosh on 07/12/18 4:[address] Patient Name: MADELINE ROBINS Admission Status: ER Accout number: [id number] Admission Date: 07-08-2018 : 1940 Admission Diagnosis:HEART FAILURE, UNSPECIFIED Attending: ALYSSA GOLDEN Current LOS: 4 Anticipated DC Date: Planned Disposition: Inpatient Rehab Primary Insurance: [facility] MEDICARE SOLUTIONS PLANNED EXTERNAL PROVIDER: [facility] INPATIENT REHAB Discharge Planning Comments: CM RECIEVED ORDER FOR INPATIENT REHAB PRESCREENING. CM MET WITH PT AND DAUGHTER IN ROOM TO DISCUSS DISCHARGE PLANNING AND NEEDS. MADELINE ROBINS provided verbal consent to discuss current and ongoing needs with/in the presence of: RICHARD HALL. PT WANTS RICHARD EMERGENCY CONTACT AND WANTS DAUGHTER ALEXI REMOVED EMERGENCY CONTACT. PT REPORTS LIVING AT HOME INDEPENDENTLY WITH FAMILY. PT HASHOME AND PORTABLE OXYGEN THAT WAS SET UP THE OTHER DAY WITH [facility] PATIENT. PT ALSO HAS A CANE. PT HAS NO OUTSIDE SERVICES ASSISTING IN THE HOME. CM DISCUSSED AVAILABILITY OF HOME HEALTH, REHAB SERVICES AND MEDICAL EQUIPMENT. PT WANTS REHAB AT [facility], REPORTS HER DAUGHTER WILL PICK HER UP FOR DISCHARGE HOME. IMPORTANT MESSAGE FROM MEDICARE PROVIDED AND EXPLAINED. CM NOTIFIED RODERICK OF ADMISSIONS OF PT'S REQUEST TO REMOVE DAUGHTER ALEXI LEVI EMERGENCY CONTACT AND TO ADD DAUGHTER RICHARD FISCHER, . CM SPOKE TO MACI OF INPATIENT REHAB, NOTIFIED OF PT'S WANTING REHAB AT [place]. PT HAS MANAGED MEDICARE AND WILL REQUIRE PRIOR AUTHORIZATION FROM INSURANCE FOR REHAB SERVICES. CM TO CONTINUE TO FOLLOW AND ASSIST NEEDED. Dance Critic: Presley Mcintosh DCPIA - Discharge Planning Initial Assessment Updated by [id number]: Presley Mcintosh on 07/12/18 5:31 pm * Is the patient Alert and Oriented? Yes * How many steps to enter\exit or inside your home? NONE * PCP DR. JOCELYN LUJAN IN [facility] * Pharmacy [facility] IN [place] * Preadmission Environment Home with Family * ADLs Independent * Equipment Home Photo Therapy * Other Equipment HOME AND PORTABLE OXYGEN - *NEEDS NEW OXYGEN QUALIFICATION TESTING PRIOR TO DISCHARGE HOME [facility] PATIENT * List name and contact numbers for known caregivers / representatives who currently or will assist patient after discharge: RICHARD FISCHER DTR, * Verbal permission to speak to the caregivers and representatives has been obtained from the patient. Yes * Community resources currently utilized None * Please name any agencies selected above. NONE * Additional services required to return to the preadmission environment? No * Can the patient safely return to the preadmission environment? Yes * Has this patient been hospitalized within the prior 30 days at any hospital? Yes Coverage Notice Reviewer: [id number] Mcintosh Notice Issued Date-Time: 07/12/2018 14:50 Notice Type: IM Discharge Notice Notice Delivered To: Patient Relationship to Patient: Fish Salter Name: Delivery Method: HAND - Hand Delivered Susan Days: Prior Verbal Notification: Recipient Understood Notice: Yes Recipient Signature: Yes Med Rec Note Co-signed by Attending: Coverage Notice Comment: Reviewer: JILLIAN Mcintosh Notice Issued Date-Time: 07/18/2018 11:00 Notice Type: Patient Choice Letter Notice Delivered To: Patient Relationship to Patient: Fish Salter Name: Delivery Method: HAND - Hand Delivered Susan Days: Prior Verbal Notification: Recipient Understood Notice: Yes Recipient Signature: Yes Med Rec Note Co-signed by Attending: Coverage Notice Comment: 1-[facility], 2-[facility] Reviewer: [id number] Mcintosh Notice Issued Date-Time: 07/18/2018 11:00 Notice Type: IM Discharge Notice Notice Delivered To: Patient Relationship to Patient: Fish Salter Name: Delivery Method: HAND - Hand Delivered Susan Days: Prior Verbal Notification: Recipient Understood Notice: Yes Recipient Signature: Yes Med Rec Note Co-signed by Attending: Coverage Notice Comment: Last DP export: 07/19/18 2:10 p Patient Name: MADELINE ROBINS Page 52073 at 4489 All edits/amendments must be made on the electronic document DICTATION DATE: 07/19/181628 MECHANICAL ESTIMATOR: RUBA 07/19/18 162 RPT#: [id number] DC DATE: STATUS: ADM IN [facility] [address] [place] [address] END OF REPORT
--- NOTE | 2018-07-19 19:30 | NUR ---
INITIAL ROUNDS COMPLETED - PT CONFUSED, ASKING WHERE HER DAUGHTER IS. REORIENTED PT THAT HER DAUGHTER WAS GONE TODAY AND WOULD BE BACK TOMORROW MORNING. PT VERBALIZED UNDERSTANDING. MENESES DRAINING DARK YELLOW URINE. PT STATES NO PAIN OR DISCOMFORT. RR EVEN AND UL. WCTM AND FOLLOW POC. BED ALARM ON, SR UP X2, CL IN REACH. BED IN LOW POSOTION
[2018-07-19 19:44] VITALS: BP 102/49
[2018-07-19 23:50] VITALS: BP 100/45
[2018-07-20 03:45] VITALS: BP 99/50
[2018-07-20 05:38] LABS: BASOPHILS 0.1 % (0-2); HEMATOCRIT 32.6 % (36.0-48.0); HEMOGLOBIN 10.6 g/dL (12-16); IMMATURE GRANULOCYTES 0.1 % (0-5); LYMPHOCYTES 22.8 % (15-50); MCH 30.9 pg (26.0-34.0); MCHC 32.5 g/dL (31.0-37.0); MEAN PLATELET VOLUME 11.3 fL (7.4-10.4); MONOCYTES 8.8 % (2-11); NEUTROPHILS 66.2 % (40-80); PLATELET COUNT 118 10x3/uL (130-400); RBC 3.43 10x6/uL (4.00-5.40); RDW 14.7 % (11.5-14.5); WBC 6.9 10x3/uL (4.8-10.8)
[2018-07-20 06:03] LABS: ANION GAP 7.6 mmol/L (8-16); CALCIUM 9.1 mg/dL (8.5-10.1); CARBON DIOXIDE 35.7 mmol/L (21.0-32.0); CREATININE - SERUM 1.2 mg/dL (0.6-1.3); MAGNESIUM - SERUM 2.2 mg/dL (1.8-2.4); POTASSIUM - SERUM 4.3 mmol/L (3.5-5.1)
[2018-07-20 08:00] VITALS: BP 95/57
[2018-07-20 16:00] VITALS: BP 94/40
[2018-07-20 17:55] VITALS: BP 100/45
--- NOTE | 2018-07-20 18:45 | NUR ---
PT SITTING UP IN BED WITH DAUGHTER AT BEDSIDE. NO S/S OF ACUTE DISTRESS. CL IN PLACE.
--- NOTE | 2018-07-20 18:51 | NUR ---
PT DAUGHTER ALEXI CALLED TODAY AND STATED" I WANT TO TAKE MOMMA HOME WHERE SHE IS COMFORTABLE. I DO NOT CARE ABOUT LIVING ON HER CHECK LIKE MY SISTER, BRAD. MY MOM IS STAYING IN A HOME WITH NO HEAT." EXPLAINED TO HER I WOULD GIVE THE INFO TO THE CM. GAVE THE INFO TO LUZ HARTMAN. THE NEXT 30 MINUTES THE DAUGHTER, BRAD SHOWS UP. PACING THE HALLS, VERY HYPERACTIVE AND ODD. SHE STATES, "DID MOM GET HER ANXIETY MEDICATION ORDERED? HER ANXIETY HAS BEEN NAD IN HERE." EXPLAINED TO HER I HAD NOT SEEN ANY S/S OF ANXIETY FROM HER MOTHER. NO S/S OF ANXIETY HAVE BEEN NOTED TODAY. PT DENIES BEING ANXIOUS.
--- NOTE | 2018-07-20 19:30 | NUR ---
RECEIVED REPORT, WILL ASSUME CARE OF PT, DENIES ANY NEEDS AT THIS TIME, DAUGHTER AT BEDSIDE, BED IS LOW, SRX2, CALL LIGHT IN REACH, WILL CONTINUE PLAN OF CARE
[2018-07-21 03:51] VITALS: BP 105/45
--- NOTE | 2018-07-21 04:00 | NUR ---
PT RESTING IN BED WITH RESPS EVEN/NONLABORED. NO DISTRESS. MONITOR AND CPOC.
--- NOTE | 2018-07-21 08:08 | NUR ---
PT RESTING IN BED DOING BREATHING TX WITH RESP. DAUGHTER SLEEPING AT BEDSIDE. NO S/S OF ACUTE DISTRESS. CL IN PLACE.
[2018-07-21 08:59] VITALS: BP 108/50
--- NOTE | 2018-07-21 10:28 | NUR ---
PT RESTING IN BED. AROUSED TO VERBAL STIMULI. DAUGHTER SITTING UP IN CHAIR WITH HEAD DOWN IN DEEP SLEEP. DAUGHTER NOT AROUSED BY VERBAL STIMULI OR WHEN MOTHER CALLS HER NAME. HER CHEST IS RISING AND FALLING. PT RUNNING SINUS ELEN-50S ON TELE. 108. CALLED STEPAN BALDWIN APN WHO STATED I NEEDED TO SPEAK WITH CARDIOLOGY. CALLED [facility] WHO PUT IN NEW ORDERS FOR SOTOLOL. DC OLD SOTOLOL DOSE. NO S/S OF ACUTE DISTRESS. PT DENIES DEPRESSION OR ANXIETY. NO S/S OF ANXIETY NOTED. CL IN PLACE.
[2018-07-21 10:55] LABS: BASOPHILS 0.2 % (0-2); HEMATOCRIT 33.6 % (36.0-48.0); HEMOGLOBIN 10.9 g/dL (12-16); IMMATURE GRANULOCYTES 0.2 % (0-5); LYMPHOCYTES 20.4 % (15-50); MCH 30.6 pg (26.0-34.0); MCHC 32.4 g/dL (31.0-37.0); MCV 94.4 fL (80.0-100.0); MEAN PLATELET VOLUME 11.9 fL (7.4-10.4); MONOCYTES 9.5 % (2-11); NEUTROPHILS 67.7 % (40-80); PLATELET COUNT 119 10x3/uL (130-400); RBC 3.56 10x6/uL (4.00-5.40)
[2018-07-21 10:56] LABS: RDW 14.4 % (11.5-14.5); WBC 5.1 10x3/uL (4.8-10.8)
[2018-07-21 11:04] LABS: ANION GAP 7.1 mmol/L (8-16); CARBON DIOXIDE 35.4 mmol/L (21.0-32.0); CREATININE - SERUM 1.2 mg/dL (0.6-1.3); POTASSIUM - SERUM 3.5 mmol/L (3.5-5.1)
--- NOTE | 2018-07-21 12:32 | NUR ---
DAUGHTER IN WITH PT ALL MORNING. PT ALL OVER THE ROOM. TALKIGN RAPIDLY. OVERLY ENCOURAGES MOTHER TO THE POINT SHE IS IRRITATING TO MOTHER. MOTHER TRIED TO CLOSE EYES AND DAUGHTER TALKS UNTIL MOTHER AWAKES OR TELLS MOTHER, " I AM GOING TO PUT MY COLD HANDS ON YOU IF YOU DO NOT STAY AWAKE." PT YELLS, "STOP BRAD". WHEN I WALK IN THE ROOM MOTHER GETS SILENT AND THE DAUGHTER TALKS NONSTOP ABOUT EVERYTHING SHE HAS DONE FOR HER MOTHER. ASK PT IF SHE IS OK AND PT RESPONDS, YES. NO S/S OF ACUTE DISTRESS. CL IN PLACE.
[2018-07-21 13:05] VITALS: BP 111/73
[2018-07-21 16:09] VITALS: BP 122/86
--- NOTE | 2018-07-21 16:46 | NUR ---
PT DAUGHTER STEPPED OUT OF THE ROOM. I ASKED PT IF SHE WAS COMFORTABLE BEING AROUND HER DAUGHTER AND IF SHE WAS NERVOUS. PT STATED, " YES I AM FINE, SHE IS MY BABY GIRL." I ASKED THE PT IF SHE WAS COMFORTABLE LIVING WITH BRAD DT THE ALLEGATIONS THE OTHER DAUGHTER HAD MADE. PT STATES, "YES I FEEL COMFORTABLE." PT DENIES ANXIETY. NO S/S OF ACUTE DISTRESS. CL IN PLACE.
--- NOTE | 2018-07-21 18:18 | NUR ---
PT RESTING IN BED. AROUSED BY VERBAL STIMULI. O2 ON NC. NO S/S OF ACUTE DISTRESS. CL IN PLACE.
--- NOTE | 2018-07-21 19:33 | NUR ---
RECEIVED REPORT, WILL ASSUME CARE OF PT, PT IS SLEEPING, NO DISTRESS NOTICED AT THIS TIME, BED IS LOW, SRX2, ALARM IS ON, CALL LIGHT IN REACH, WILL CONTINUE PLAN OF CARE
[2018-07-21 19:45] VITALS: BP 97/42
[2018-07-21 23:41] VITALS: BP 110/56
[2018-07-22 03:49] VITALS: BP 104/48
--- NOTE | 2018-07-22 04:07 | NUR ---
PT RESTING IN BED WITH NO DISTRESS. RESPS NONLABORED. MONITOR AND CPOC. CALL LIGHT IN REACH.
[2018-07-22 06:17] LABS: BASOPHILS 0.4 % (0-2); EOSINOPHILS 2.1 % (0-7); HEMATOCRIT 32.8 % (36.0-48.0); HEMOGLOBIN 10.6 g/dL (12-16); IMMATURE GRANULOCYTES 0.2 % (0-5); LYMPHOCYTES 24.5 % (15-50); MCH 30.7 pg (26.0-34.0); MCHC 32.3 g/dL (31.0-37.0); MCV 95.1 fL (80.0-100.0); MEAN PLATELET VOLUME 12.1 fL (7.4-10.4); MONOCYTES 9.1 % (2-11); NEUTROPHILS 63.7 % (40-80); PLATELET COUNT 130 10x3/uL (130-400); RBC 3.45 10x6/uL (4.00-5.40); RDW 14.2 % (11.5-14.5); WBC 5.6 10x3/uL (4.8-10.8)
[2018-07-22 06:26] LABS: ANION GAP 8.9 mmol/L (8-16); CALCIUM 9.1 mg/dL (8.5-10.1); CREATININE - SERUM 1.2 mg/dL (0.6-1.3); POTASSIUM - SERUM 3.9 mmol/L (3.5-5.1)
--- NOTE | 2018-07-22 07:15 | NUR ---
REPORT RECEIVED. WILL CONTINUE WITH POC. PT CURRENTLY LYING ON RIGHT SIDE. CALL LIGHT W/I REACH. DAUGHTER AT BEDSIDE. PT IS AAO AND RESPONDS APPROPRIATELY TO QUESTION. RR EVEN AND UNLABORED ON 3L 02. R.HAND PIV IS SALINE LOCKED. PT DENIES ANY NEEDS AT THIS TIME. WILL CTM.
--- NOTE | 2018-07-22 08:08 | MORECARE ---
CASE MANAGEMENT DISCHARGE SUMMARY PATIENT: MADELINE ROBINS UNIT: [id number] ADM DATE: 07/08/18 AGE: 77 : 38 SEX: F ROOM/BED: D.6972 AUTHOR: TATA,DOC PHYSICIAN: REFERRING PHYSICIAN: ALYSSA GOLDEN MD DATE OF SERVICE: 07/22/18 Discharge Plan Patient Name: MADELINE ROBINS Facility: [facility]:[place] : 1940 Planned Disposition: Senior Living Facility Anticipated Discharge Date: 07/20/18 Discharge Date: Expected LOS: 12 Initial Reviewer: [id number] Initial Review Date: 07/12/2018 Generated: 07/22/18 9:07 am Comments DCP- Discharge Planning Updated by [id number]: Presley Mcintosh on 07/19/18 3:[address] Patient Name: MADELINE ROBINS Encounter No: [id number] : 1940 Primary Insurance: [facility] MEDICARE SOLUTIONS Anticipated DC Date: 07-19-2018 Planned Disposition: Senior Living Facility External Planned Provider: [facility] MEDICARE REHAB BED DCP follow-up note: CM RECEIVED CALL FROM MUNA [facility], THEY ARE OUT OF NETWORK WITH PT'S INSURANCE. CM FAXED REFERRAL TO [facility] VIA [facility] AT [phone]. CM NOTIFIED MARTIN OF REFERRAL FOR REHAB AT [facility], . CM WAITING ADMISSION DETERMINATION WELL INSURANCE AUTHORIZATION FOR REHAB AT [facility] IN [place]. 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 CM REVIEWED CHART, PT REQUIRES OXYGEN AT 3LNC. CM SPOKE TO PT WHO IS IN AGREEMENT WITH REHAB AT [facility], REPORTS HAVING PORTABLE OXYGEN BUT DOES NOT KNOW IF HER DAUGHTER CAN DRIVE HER TO REHAB TOMORROW. PT'S DAUGHTER AT [employer] APPOINTMENT NOW AND WILL BE BACK SHORTLY, PT ASKED CM TO TALK TO HER DAUGHTER ABOUT TRANSPORATATION ARRANGEMENTS. [facility] CAN ACCEPT PT 1-12-19 FOR REHAB IF FAMILY CAN TRANSPORT PT TO REHAB IN [place]. OTHERWISE, [facility] WILL ACCEPT PT ON 07-22-18 WHEN THEIR VAN CAN MECHANICAL SPREADER OPERATOR PT. FOR DISCHARGE, FAX DISCHARGE INFORMATION TO [facility] AT [phone]. CALL NURSE REPORT TO [facility] AT [phone]. PRESLEY MCINTOSH, CASE MANAGEMENT Appended by Presley Mcintosh on 07/19/2018 16:21 INSURANCE BILLING CLERK: CM CALLED AND SPOKE TO RICHARD FISCHER, DTR, , WHO WILL BRING OXYGEN AND CAN TRANSPORT PT TO REHAB AT [facility] 07-20-18. CM NOTIFIED MARTIN OF [facility] WHO INFORMED CM THAT THE FACILITY NEEDS ANOTHER BNP RESULT. CM NOTIFIED ROBERTO BALDWIN OF FACILITY REQUEST FOR LAB. [facility] CAN ACCEPT PT 07-20-18 FOR REHAB, FAMILY CAN TRANSPORT PT TO REHAB IN [place] AND HAS OXYGEN. CALL [facility], WITH BNP RESULTS 07-20-17; AFTER ACCEPTANCE, FAX DISCHARGE INFORMATION TO [facility] AT [phone]. CALL NURSE REPORT TO [facility] AT [phone]. FAMILY TO TRANSPORT. PRESLEY MCINTOSH, CASE MANAGEMENT DCP- Discharge Planning Updated by [id number]: Presley Mcintosh on 07/18/18 1:[address] Patient Name: MADELINE ROBINS Encounter No: [id number] : 1940 Primary Insurance: [facility] MEDICARE SOLUTIONS Anticipated DC Date: 07-19-2018 Planned Disposition: Senior Living Facility External Planned Provider: [facility], MEDICARE REHAB BED DCP follow-up note: CM SPOKE TO MACI OF INPATIENT REHAB WHO INFORMED CM THAT PT'S INSURANCE DECLINED INPATIENT REHAB, SUGGESTED [facility]. CM MET WITH PT AND DAUGHTER IN ROOM, DISCUSSED INPATIENT DENIAL BY INSURANCE AND AVAILABILITY OF [facility] PROVIDERS AND LOCATIONS. PT'S DAUGHTER WORKED AT [facility] AND PT STATES SHE WANTS TO REHAB THERE. CM EXPLAINED THAT THE FACILITY WOULD HAVE TO REVIEW AND ACCEPT AND PT'S INSURANCE WOULD HAVE TO AUTHORIZE SERVICES AT FACILITY. PT REPORTS UNDERSTANDING. SIGNED CHOICE FOR 1- [facility] AND 2-[facility]. IMPORTANT MESSAGE FROM MEDICARE PROVIDED AND EXPLAINED. CM CALLED [facility], , LEFT MESSAGE FOR [facility] REGARDING NEW REFERRAL FOR REHAB. CM FAXED REFERRAL TO [facility] AT [phone]. Presley Mcintosh, CASE MANAGEMENT DCP- Discharge Planning Updated by [id number]: Presley Mcintosh on 07/12/18 4:[address] Patient Name: MADELINE ROBINS Admission Status: ER Accout number: [id number] Admission Date: 07-08-2018 : 1940 Admission Diagnosis:HEART FAILURE, UNSPECIFIED Attending: ALYSSA GOLDEN Current LOS: 4 Anticipated DC Date: Planned Disposition: Inpatient Rehab Primary Insurance: [facility] MEDICARE SOLUTIONS PLANNED EXTERNAL PROVIDER: [facility] INPATIENT REHAB Discharge Planning Comments: CM RECIEVED ORDER FOR INPATIENT REHAB PRESCREENING. CM MET WITH PT AND DAUGHTER IN ROOM TO DISCUSS DISCHARGE PLANNING AND NEEDS. MADELINE ROBINS provided verbal consent to discuss current and ongoing needs with/in the presence of: RICHARD HALL. PT WANTS [facility] CONTA[facility] AND WANTS DAUGHTER ALEXI REMOVED EMERGENCY CONTACT. PT REPORTS LIVING AT HOME INDEPENDENTLY WITH FAMILY. PT HASHOME AND PORTABLE OXYGEN THAT WAS SET UP THE OTHER DAY WITH [facility]. PT ALSO HAS A CANE. PT HAS NO OUTSIDE SERVICES ASSISTING IN THE HOME. CM DISCUSSED AVAILABILITY OF HOME HEALTH, REHAB SERVICES AND MEDICAL EQUIPMENT. PT WANTS REHAB AT [facility], REPORTS HER DAUGHTER WILL PICK HER UP FOR DISCHARGE HOME. IMPORTANT MESSAGE FROM MEDICARE PROVIDED AND EXPLAINED. CM NOTIFIED RODERICK OF ADMISSIONS OF PT'S REQUEST TO REMOVE DAUGHTER ALEXI LEVI EMERGENCY CONTACT AND TO ADD DAUGHTER RICHARD FISCHER, . CM SPOKE TO MACI OF INPATIENT REHAB, NOTIFIED OF PT'S WANTING REHAB AT [place]. PT HAS MANAGED MEDICARE AND WILL REQUIRE PRIOR AUTHORIZATION FROM INSURANCE FOR REHAB SERVICES. CM TO CONTINUE TO FOLLOW AND ASSIST NEEDED. Procurement Professional Logistics: Presley Mcintosh DCPIA - Discharge Planning Initial Assessment Updated by [id number]: Presley Mcintosh on 07/12/18 5:31 pm * Is the patient Alert and Oriented? Yes * How many steps to enter\exit or inside your home? NONE * PCP DR. JOCELYN LUJAN IN [facility] * Pharmacy [facility] IN [place] * Preadmission Environment Home with Family * ADLs Independent * Equipment Home Photo Therapy * Other Equipment HOME AND PORTABLE OXYGEN - *NEEDS NEW OXYGEN QUALIFICATION TESTING PRIOR TO DISCHARGE HOME [facility] * List name and contact numbers for known caregivers / representatives who currently or will assist patient after discharge: JASON JIMENEZR, * Verbal permission to speak to the caregivers and representatives has been obtained from the patient. Yes * Community resources currently utilized None * Please name any agencies selected above. NONE * Additional services required to return to the preadmission environment? No * Can the patient safely return to the preadmission environment? Yes * Has this patient been hospitalized within the prior 30 days at any hospital? Yes External Providers External Provider: [facility] Next Contact Date: 07/18/2018 Service Request Date: Service Type: Resolution: Reviewer: Comments: Coverage Notice Reviewer: JILLIAN Mcintosh Notice Issued Date-Time: 07/12/2018 14:50 Notice Type: IM Discharge Notice Notice Delivered To: Patient Relationship to Patient: Practice Representative Name: Delivery Method: HAND - Hand Delivered Susan Days: Prior Verbal Notification: Recipient Understood Notice: Yes Recipient Signature: Yes Med Rec Note Co-signed by Attending: Coverage Notice Comment: Reviewer: JILLIAN Mcintosh Notice Issued Date-Time: 07/18/2018 11:00 Notice Type: Patient Choice Letter Notice Delivered To: Patient Relationship to Patient: Practice Representative Name: Delivery Method: HAND - Hand Delivered Susan Days: Prior Verbal Notification: Recipient Understood Notice: Yes Recipient Signature: Yes Med Rec Note Co-signed by Attending: Coverage Notice Comment: 1-[facility], 2-[facility] Reviewer: [id number] Mcintosh Notice Issued Date-Time: 07/18/2018 11:00 Notice Type: IM Discharge Notice Notice Delivered To: Patient Relationship to Patient: Practice Representative Name: Delivery Method: HAND - Hand Delivered Susan Days: Prior Verbal Notification: Recipient Understood Notice: Yes Recipient Signature: Yes Med Rec Note Co-signed by Attending: Coverage Notice Comment: Last DP export: 07/19/18 3:29 p Patient Name: MADELINE ROBINS Page 97833 at 0808 All edits/amendments must be made on the electronic document DICTATION DATE: 01/14/19 0807 PRECISION INSPECTOR: DM 07/22/18806 RPT#: [id number] DC DATE: STATUS: ADM IN [facility] [address] [place] [address] END OF REPORT
[2018-07-22 08:10] VITALS: BP 100/36
--- NOTE | 2018-07-22 08:14 | MORECARE ---
CASE MANAGEMENT DISCHARGE SUMMARY PATIENT: MADELINE ROBINS UNIT: [id number] ADM DATE: 07/08/18 AGE: 77 : 38 SEX: F ROOM/BED: D.3070 AUTHOR: TATA,DOC PHYSICIAN: REFERRING PHYSICIAN: ALYSSA GOLDEN MD DATE OF SERVICE: 07/22/18 Discharge Plan Patient Name: MADELINE ROBINS Facility: [facility]:[place] : 1940 Planned Disposition: Nursing Home Facility Anticipated Discharge Date: 07/20/18 Discharge Date: Expected LOS: 12 Initial Reviewer: [id number] Initial Review Date: 07/12/2018 Generated: 07/22/18 9:14 am Comments DCP- Discharge Planning Updated by [id number]: Presley Mcintosh on 07/22/18 7:[address] Patient Name: MADELINE ROBINS Encounter No: [id number] : 1940 Primary Insurance: [facility] MEDICARE SOLUTIONS Anticipated DC Date: 07-20-2018 Planned Disposition: Nursing Home Facility External Planned Provider: [facility], MEDICARE REHAB BED DCP follow-up note: CM FAXED REFERRAL UPDATE WITH REQUESTED BNP RESULTS REQUESTED BY FACILITY TO [facility]IA [employer] AT [phone]. CM NOTIFIED MARTIN OF REFERRAL UPDATE FAXED FOR REHAB AT [facility], . CM WAITING ACCEPTANCE FOR REHAB BY [facility]. PRESLEY MCINTOSH CASE CASSIA DCP- Discharge Planning Updated by [id number]: Presley Mcintosh on 07/19/18 3:[address] Patient Name: MADELINE ROBINS Encounter No: [id number] : 1940 Primary Insurance: [facility] MEDICARE SOLUTIONS Anticipated DC Date: 07-19-2018 Planned Disposition: Nursing Home Facility External Planned Provider: [facility], MEDICARE REHAB BED DCP follow-up note: CM RECEIVED CALL FROM [facility], THEY ARE OUT OF NETWORK WITH 'S INSURANCE. CM FAXED REFERRAL TO [facility]IA [employer] AT [phone]. CM NOTIFIED MARTIN OF REFERRAL FOR REHAB AT [facility], . CM WAITING ADMISSION DETERMINATION WELL INSURANCE AUTHORIZATION FOR REHAB AT [facility] IN [place]. 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 CM REVIEWED CHART, PT REQUIRES OXYGEN AT 3LNC. CM SPOKE TO PT WHO IS IN AGREEMENT WITH REHAB AT [facility], REPORTS HAVING PORTABLE OXYGEN BUT DOES NOT KNOW IF HER DAUGHTER CAN DRIVE HER TO REHAB TOMORROW. PT'S DAUGHTER AT [employer] APPOINTMENT NOW AND WILL BE BACK SHORTLY, PT ASKED CM TO TALK TO HER DAUGHTER ABOUT TRANSPORATATION ARRANGEMENTS. [facility] CAN ACCEPT PT 07-20-18 FOR REHAB IF FAMILY CAN TRANSPORT PT TO REHAB IN [place]. OTHERWISE, [facility] WILL ACCEPT PT ON 07-22-18 WHEN THEIR V[facility] CAN ROCKET TEST FIRE WORKER PT. FOR DISCHARGE, FAX DISCHARGE INFORMATION TO [facility] AT [phone]. CALL NURSE REPORT TO [facility] AT [phone]. PRESLEY MCINTOSH, CASE MANAGEMENT Appended by Presley Mcintosh on 07/19/2018 16:21 FOREST AND CONSERVATION WORKER: CM CALLED AND SPOKE TO RICHARD FISCHER, DTR, , WHO WILL BRING OXYGEN AND CAN TRANSPORT PT TO REHAB AT [facility] 07-20-18. CM NOTIFIED MARTIN [facility] WHO INFORMED CM THAT THE FACILITY NEEDS ANOTHER BNP RESULT. CM NOTIFIED ROBERTO BALDWIN OF FACILITY REQUEST FOR LAB. [facility] CAN ACCEPT PT 07-20-18 FOR REHAB, FAMILY CAN TRANSPORT PT TO REHAB IN [place] AND HAS OXYGEN. CALL [facility], WITH BNP RESULTS 07-20-17; AFTER ACCEPTANCE, FAX DISCHARGE INFORMATION TO [facility] AT [phone]. CALL NURSE REPORT TO [facility] AT [phone]. FAMILY TO TRANSPORT. PRESLEY MCINTOSH, CASE MANAGEMENT DCP- Discharge Planning Updated by [id number]: Presley Mcintosh on 07/18/18 1:[address] Patient Name: MADELINE ROBINS Encounter No: [id number] : 1940 Primary Insurance: [facility] MEDICARE SOLUTIONS Anticipated DC Date: 07-19-2018 Planned Disposition: Nursing Home Facility External Planned Provider: [facility], MEDICARE REHAB BED DCP follow-up note: CM SPOKE TO MACI OF INPATIENT REHAB WHO INFORMED CM THAT PT'S INSURANCE DECLINED INPATIENT REHAB, SUGGESTED [facility]. CM MET WITH PT AND DAUGHTER IN ROOM, DISCUSSED INPATIENT DENIAL BY INSURANCE AND AVAILABILITY OF [facility] RE[facility]AB PROVIDERS AND LOCATIONS. PT'S DAUGHTER WORKED AT [facility] AND PT STATES SHE WANTS TO REHAB THERE. CM EXPLAINED THAT THE FACILITY WOULD HAVE TO REVIEW AND ACCEPT AND PT'S INSURANCE WOULD HAVE TO AUTHORIZE SERVICES AT FACILITY. PT REPORTS UNDERSTANDING. SIGNED CHOICE FOR 1- [facility] AND 2-[facility]. IMPORTANT MESSAGE FROM MEDICARE PROVIDED AND EXPLAINED. CM CALLED [facility], , LEFT MESSAGE FOR [facility] REGARDING NEW REFERRAL FOR REHAB. CM FAXED REFERRAL TO [facility] AT [phone]. Presley Mcintosh, CASE MANAGEMENT DCP- Discharge Planning Updated by [id number]: Presley Mcintosh on 07/12/18 4:[address] Patient Name: MADELINE ROBINS Admission Status: ER Accout number: [id number] Admission Date: 07-08-2018 : 1940 Admission Diagnosis:HEART FAILURE, UNSPECIFIED Attending: ALYSSA GOLDEN Current LOS: 4 Anticipated DC Date: Planned Disposition: Inpatient Rehab Primary Insurance: [facility] MEDICARE SOLUTIONS PLANNED EXTERNAL PROVIDER: [facility] INPATIENT REHAB Discharge Planning Comments: CM RECIEVED ORDER FOR INPATIENT REHAB PRESCREENING. CM MET WITH PT AND DAUGHTER IN ROOM TO DISCUSS DISCHARGE PLANNING AND NEEDS. MADELINE ROBINS provided verbal consent to discuss current and ongoing needs with/in the presence of: RICHARD HALL. PT WANTS RICHARD EMERGENCY CONTACT AND WANTS DAUGHTER ALEXI REMOVED EMERGENCY CONTACT. PT REPORTS LIVING AT HOME INDEPENDENTLY WITH FAMILY. PT HASHOME AND PORTABLE OXYGEN THAT WAS SET UP THE OTHER DAY WITH [facility]. PT ALSO HAS A CANE. PT HAS NO OUTSIDE SERVICES ASSISTING IN THE HOME. CM DISCUSSED AVAILABILITY OF HOME HEALTH, REHAB SERVICES AND MEDICAL EQUIPMENT. PT WANTS REHAB AT [facility], REPORTS HER DAUGHTER WILL PICK HER UP FOR DISCHARGE HOME. IMPORTANT MESSAGE FROM MEDICARE PROVIDED AND EXPLAINED. CM NOTIFIED RODERICK OF ADMISSIONS OF PT'S REQUEST TO REMOVE DAUGHTER ALEXI LEVI EMERGENCY CONTACT AND TO ADD DAUGHTER RICHARD FISCHER, . CM SPOKE TO MACI OF INPATIENT REHAB, NOTIFIED OF PT'S WANTING REHAB AT [place]. PT HAS MANAGED MEDICARE AND WILL REQUIRE PRIOR AUTHORIZATION FROM INSURANCE FOR REHAB SERVICES. CM TO CONTINUE TO FOLLOW AND ASSIST NEEDED. Fishing Accessories Maker: Presley Mcintosh DCPIA - Discharge Planning Initial Assessment Updated by [id number]: Presley Mcintosh on 07/12/18 5:31 pm * Is the patient Alert and Oriented? Yes * How many steps to enter\exit or inside your home? NONE * PCP DR[facility] JOCELYN LUJAN IN [facility] * Pharmacy [facility] IN [place] * Preadmission Environment Home with Family * ADLs Independent * Equipment Home Photo Therapy * Other Equipment HOME AND PORTABLE OXYGEN - *NEEDS NEW OXYGEN QUALIFICATION TESTING PRIOR TO DISCHARGE HOME [facility] * List name and contact numbers for known caregivers / representatives who currently or will assist patient after discharge: RICHARD FISCHER, DTR, * Verbal permission to speak to the caregivers and representatives has been obtained from the patient. Yes * Community resources currently utilized None * Please name any agencies selected above. NONE * Additional services required to return to the preadmission environment? No * Can the patient safely return to the preadmission environment? Yes * Has this patient been hospitalized within the prior 30 days at any hospital? Yes Coverage Notice Reviewer: [id number] Mcintosh Notice Issued Date-Time: 07/18/2018 11:00 Notice Type: Patient Choice Letter Notice Delivered To: Patient Relationship to Patient: Mission Coordinator Name: Delivery Method: HAND - Hand Delivered Susan Days: Prior Verbal Notification: Recipient Understood Notice: Yes Recipient Signature: Yes Med Rec Note Co-signed by Attending: Coverage Notice Comment: 1-[facility], 2-[facility] Reviewer: [id number] Wanda Mcintosh Notice Issued Date-Time: 07/18/2018 11:00 Notice Type: IM Discharge Notice Notice Delivered To: Patient Relationship to Patient: Mission Coordinator Name: Delivery Method: HAND - Hand Delivered Susan Days: Prior Verbal Notification: Recipient Understood Notice: Yes Recipient Signature: Yes Med Rec Note Co-signed by Attending: Coverage Notice Comment: Reviewer: [email or web address] Mcintosh Notice Issued Date-Time: 07/12/2018 14:50 Notice Type: IM Discharge Notice Notice Delivered To: Patient Relationship to Patient: Mission Coordinator Name: Delivery Method: HAND - Hand Delivered Susan Days: Prior Verbal Notification: Recipient Understood Notice: Yes Recipient Signature: Yes Med Rec Note Co-signed by Attending: Coverage Notice Comment: Last DP export: 07/22/18 7:08 a Patient Name: MADELINE ROBINS Page [phone] at 0814 All edits/amendments must be made on the electronic document DICTATION DATE: 07/22/18813 [place]: RUBA 07/22/18813 RPT#: [id number] DC DATE: STATUS: ADM IN [facility] [address] [place] [address] END OF REPORT
--- NOTE | 2018-07-22 09:23 | NUR ---
RESTS IN BED WITH EYES CLOSED. RESP UL ON . FAMILY MEMBER AT BS. WILL CONT. PLAN OF CARE.
[2018-07-22 11:45] VITALS: BP 128/70
--- NOTE | 2018-07-22 12:45 | MORECARE ---
CASE MANAGEMENT DISCHARGE SUMMARY PATIENT: MADELINE ROBINS UNIT: [id number] ADM DATE: 07/08/18 AGE: 77 : 38 SEX: F ROOM/BED: D.8186 AUTHOR: TATA,DOC PHYSICIAN: REFERRING PHYSICIAN: ALYSSA GOLDEN MD DATE OF SERVICE: 07/22/18 Discharge Plan Patient Name: MADELINE ROBINS Facility: [facility]:[place] : 1940 Planned Disposition: Penitentiary Facility Anticipated Discharge Date: 07/22/18 Discharge Date: Expected LOS: 14 Initial Reviewer: JILLIAN Initial Review Date: 07/12/2018 Generated: 07/22/18 1:45 pm Comments DCP- Discharge Planning Updated by [id number]: Presley Mcintosh on 07/22/18 11:[address] Patient Name: MADELINE ROBINS Encounter No: [id number] : 1940 Primary Insurance: [facility] MEDICARE SOLUTIONS Anticipated DC Date: 07-20-2018 Planned Disposition: Penitentiary Facility External Planned Provider: [facility] MEDICARE REHAB BED DCP follow-up note: CM FAXED REFERRAL UPDATE WITH REQUESTED BNP RESULTS REQUESTED BY FACILITY TO [facility] VIA MARTIN AT [phone]. CM NOTIFIED MARTIN OF REFERRAL UPDATE FAXED FOR REHAB AT [facility], . CM WAITING ACCEPTANCE FOR REHAB BY [facility]. PRESLEY MCINTOSH CASE MANAGEMENT Appended by Presley Mcintosh on 07/22/2018 12:44 MAIL SUPERINTENDENT: CM SPOKE TO PT AND DAUGHTER IN ROOM; CM ASKED ABOUT HOME UTILITIES; PT'S DAUGHTER REPORTS THEY HAVE WOOD HEATER, ELECTRICITY SERVICE AND RUNNING WATER AT HOME. PT IS STILL WANTING REHAB AT [facility]. CM EXPLAINED THAT UPDATE WAS FAXED THIS MORNING AND WAITING ON ADMISSION DETERNATION FROM [facility]. PT'S DAUGHTER REPORTS PT IS SLEEPING "A LOT" AND WANTS TO WAIT TO SEE IF THE ANXIETY PILL HELPS BEFORE DISCHARGE. CM EXPLAINED PT TO BE STABLE FOR DISCHARGE PER [facility] NOTES AND WILL MOST LIKELY DISCHARGE WHEN ACCEPTED FOR REHAB. IMPORTANT MESSAGE FROM MEDICARE PROVIDED AND EXPLAINED. CM WAITING ACCEPTANCE FOR REHAB BY [facility] RET[facility]MENT [facility]. PRESLEY MCINTOSH CASE MANAGEMENT DCP- Discharge Planning Updated by [id number]: Presley Mcintosh on 07/19/18 3:[address] Patient Name: MADELINE ROBINS Encounter No: [id number] : 1940 Primary Insurance: [facility] MEDICARE SOLUTIONS Anticipated DC Date: 07-19-2018 Planned Disposition: Penitentiary Facility External Planned Provider: [facility], MEDICARE REHAB BED DCP follow-up note: CM RECEIVED CALL FROM [facility], THEY ARE OUT OF NETWORK WITH PT'S INSURANCE. CM FAXED REFERRAL TO [facility] VIA MARTIN AT [phone]. CM NOTIFIED MARTIN OF REFERRAL FOR REHAB AT [facility], . CM WAITING ADMISSION DETERMINATION WELL INSURANCE AUTHORIZATION FOR REHAB AT [facility] RETIREMENT [facility] IN [place]. 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 CM REVIEWED CHART, PT REQUIRES OXYGEN AT 3LNC. CM SPOKE TO PT WHO IS IN AGREEMENT WITH REHAB AT [facility], REPORTS HAVING PORTABLE OXYGEN BUT DOES NOT KNOW IF HER DAUGHTER CAN DRIVE HER TO REHAB TOMORROW. PT'S DAUGHTER AT [employer] APPOINTMENT NOW AND WILL BE BACK SHORTLY, PT ASKED CM TO TALK TO HER DAUGHTER ABOUT TRANSPORATATION ARRANGEMENTS. [facility] CAN ACCEPT PT 07-20-18 FOR REHAB IF FAMILY CAN TRANSPORT PT TO REHAB IN [place]. OTHERWISE, [facility] WILL ACCEPT PT ON 07-22-18 WHEN THEIR [place] CAN MACHINE REPAIRER PT. FOR DISCHARGE, FAX DISCHARGE INFORMATION TO [facility] AT [phone]. CALL NURSE REPORT TO [facility] AT [phone]. PRESLEY MCINTOSH, CASE MANAGEMENT Appended by Presley Mcintosh on 07/19/2018 16:21 MAIL SUPERINTENDENT: CM CALLED AND SPOKE TO RICHARD FISCHER DTR, , WHO WILL BRING OXYGEN AND CAN TRANSPORT PT TO REHAB AT [facility] 07-20-18. LUZ NOTIFIED MARTIN OF [facility] WHO INFORMED CM THAT THE FACILITY NEEDS ANOTHER BNP RESULT. CM NOTIFIED ROBERTO BALDWIN OF FACILITY REQUEST FOR LAB. [facility] CAN ACCEPT PT 07-20-18 FOR REHAB, FAMILY CAN TRANSPORT PT TO REHAB IN [place] AND HAS OXYGEN. CALL [facility], WITH BNP RESULTS 07-20-17; AFTER ACCEPTANCE, FAX DISCHARGE INFORMATION TO [facility] AT [phone]. CALL NURSE REPORT TO [facility] AT [phone]. FAMILY TO TRANSPORT. RAIMUNDO MCGHEE DCP- Discharge Planning Updated by [id number]: Presley Mcintosh on 07/18/18 1:[address] Patient Name: MADELINE ROBINS Encounter No: [id number] : 1940 Primary Insurance: [facility] MEDICARE SOLUTIONS Anticipated DC Date: 07-19-2018 Planned Disposition: Penitentiary Facility External Planned Provider: [facility] MEDICARE REHAB BED DCP follow-up note: CM SPOKE TO MACI OF INPATIENT REHAB WHO INFORMED CM THAT PT'S INSURANCE DECLINED INPATIENT REHAB, SUGGESTED RETIREMENT REHAB. CM MET WITH PT AND DAUGHTER IN ROOM, DISCUSSED INPATIENT DENIAL BY INSURANCE AND AVAILABILITY OF RETIREMENT REHAB PROVIDERS AND LOCATIONS. PT'S DAUGHTER WORKED AT [facility] AND PT STATES SHE WANTS TO REHAB THERE. CM EXPLAINED THAT THE FACILITY WOULD HAVE TO REVIEW AND ACCEPT AND PT'S INSURANCE WOULD HAVE TO AUTHORIZE SERVICES AT FACILITY. PT REPORTS UNDERSTANDING. SIGNED CHOICE FOR 1- [facility] AND 2-[facility]. IMPORTANT MESSAGE FROM MEDICARE PROVIDED AND EXPLAINED. CM CALLED [facility], , LEFT MESSAGE FOR MUNA REGARDING NEW REFERRAL FOR REHAB. CM FAXED REFERRAL TO [facility] AT [phone]. RAIMUNDO Mcghee DCP- Discharge Planning Updated by [id number]: Presley Mcintosh on 07/12/18 4:[address] Patient Name: MADELINE ROBINS Admission Status: ER Accout number: [id number] Admission Date: 07-08-2018 : 1940 Admission Diagnosis:HEART FAILURE, UNSPECIFIED Attending: ALYSSA GOLDEN Current LOS: 4 Anticipated DC Date: Planned Disposition: Inpatient Rehab Primary Insurance: [facility] MEDICARE SOLUTIONS PLANNED EXTERNAL PROVIDER: [facility] INPATIENT REHAB Discharge Planning Comments: CM RECIEVED ORDER FOR INPATIENT REHAB PRESCREENING. CM MET WITH PT AND DAUGHTER IN ROOM TO DISCUSS DISCHARGE PLANNING AND NEEDS. MADELINE ROBINS provided verbal consent to discuss current and ongoing needs with/in the presence of: RICHARD HALL. PT WANTS RICHARD EMERGENCY CONTACT AND WANTS DAUGHTER ALEXI REMOVED EMERGENCY CONTACT. PT REPORTS LIVING AT HOME INDEPENDENTLY WITH FAMILY. PT HASHOME AND PORTABLE OXYGEN THAT WAS SET UP THE OTHER DAY WITH [facility]. PT ALSO HAS A CANE. PT HAS NO OUTSIDE SERVICES ASSISTING IN THE HOME. CM DISCUSSED AVAILABILITY OF HOME HEALTH, REHAB SERVICES AND MEDICAL EQUIPMENT. PT WANTS REHAB AT [facility], REPORTS HER DAUGHTER WILL PICK HER UP FOR DISCHARGE HOME. IMPORTANT MESSAGE FROM MEDICARE PROVIDED AND EXPLAINED. CM NOTIFIED RODERICK OF ADMISSIONS OF PT'S REQUEST TO REMOVE DAUGHTER ALEXI LEVI EMERGENCY CONTACT AND TO ADD DAUGHTER RICHARD FISCHER, . CM SPOKE TO MACI OF INPATIENT REHAB, NOTIFIED OF PT'S WANTING REHAB AT [place]. PT HAS MANAGED MEDICARE AND WILL REQUIRE PRIOR AUTHORIZATION FROM INSURANCE FOR REHAB SERVICES. CM TO CONTINUE TO FOLLOW AND ASSIST NEEDED. Construction Analyst: Presley Mcintosh DCPIA - Discharge Planning Initial Assessment Updated by [id number]: Presley Mcintosh on 07/12/18 5:31 pm * Is the patient Alert and Oriented? Yes * How many steps to enter\\exit or inside your home? NONE * PCP DR. JOCELYN LUJAN IN [facility] * Pharmacy [facility] IN [place] * Preadmission Environment Home with Family * ADLs Independent * Equipment Home Photo Therapy * Other Equipment HOME AND PORTABLE OXYGEN - *NEEDS NEW OXYGEN QUALIFICATION TESTING PRIOR TO DISCHARGE HOME [facility] * List name and contact numbers for known caregivers / representatives who currently or will assist patient after discharge: RICHARD FISCHER, DTR, * Verbal permission to speak to the caregivers and representatives has been obtained from the patient. Yes * Community resources currently utilized None * Please name any agencies selected above. NONE * Additional services required to return to the preadmission environment? No * Can the patient safely return to the preadmission environment? Yes * Has this patient been hospitalized within the prior 30 days at any hospital? Yes Coverage Notice Reviewer: [id number] - Presley Mcintosh Notice Issued Date-Time: 07/12/2018 14:50 Notice Type: IM Discharge Notice Notice Delivered To: Patient Relationship to Patient: Regional Medical Director Name: Delivery Method: HAND - Hand Delivered Susan Days: Prior Verbal Notification: Recipient Understood Notice: Yes Recipient Signature: Yes Med Rec Note Co-signed by Attending: Coverage Notice Comment: Reviewer: JILLIAN Mcintosh Notice Issued Date-Time: 07/18/2018 11:00 Notice Type: Patient Choice Letter Notice Delivered To: Patient Relationship to Patient: Regional Medical Director Name: Delivery Method: HAND - Hand Delivered Susan Days: Prior Verbal Notification: Recipient Understood Notice: Yes Recipient Signature: Yes Med Rec Note Co-signed by Attending: Coverage Notice Comment: 1-[facility], 2-[facility] Reviewer: JILLIAN Mcintosh Notice Issued Date-Time: 07/18/2018 11:00 Notice Type: IM Discharge Notice Notice Delivered To: Patient Relationship to Patient: Regional Medical Director Name: Delivery Method: HAND - Hand Delivered Susan Days: Prior Verbal Notification: Recipient Understood Notice: Yes Recipient Signature: Yes Med Rec Note Co-signed by Attending: Coverage Notice Comment: Reviewer: JILLIAN Mcintosh Notice Issued Date-Time: 07/22/2018 10:05 Notice Type: IM Discharge Notice Notice Delivered To: Family Member Relationship to Patient: Daughter Regional Medical Director Name: RICHARD FISCHER Delivery Method: HAND - Hand Delivered Susan Days: Prior Verbal Notification: Recipient Understood Notice: Yes Recipient Signature: Yes Med Rec Note Co-signed by Attending: Coverage Notice Comment: Last DP export: 07/22/18 7:14 a Patient Name: MADELINE ROBINS Page 10652 at 1245 All edits/amendments must be made on the electronic document DICTATION DATE: 07/22/18 1245 WOODEN FURNITURE POLISHER: RUBA 07/22/18 1245 RPT#: [id number] DC DATE: STATUS: ADM IN [facility] [address] [place] [address] END OF REPORT
--- NOTE | 2018-07-22 14:02 | NUR ---
PATIENT 02 SAT ON ROOM AIR IS 88% PLACED ON 3L/NC AND 02 SAT IS 95%
[2018-07-22] MEDS ORDERED: Aricept PO (14:33)
[2018-07-22] MEDS ORDERED: BETAPACE 80 MG80 MG PO (14:34)
[2018-07-22] MEDS ORDERED: LASIX40 MG PO (14:34)
[2018-07-22] MEDS ORDERED: K-DUR20 MEQ PO (14:35)
--- NOTE | 2018-07-22 15:14 | MORECARE ---
CASE MANAGEMENT DISCHARGE SUMMARY PATIENT: MADELINE ROBINS UNIT: [id number] ADM DATE: 07/08/18 AGE: 77 : 38 SEX: F ROOM/BED: D.0508 AUTHOR: TATA,DOC PHYSICIAN: REFERRING PHYSICIAN: ALYSSA GOLDEN MD DATE OF SERVICE: 07/22/18 Discharge Plan Patient Name: MADELINE ROBINS Facility: [facility]:[place] : 1940 Planned Disposition: Prison Facility Anticipated Discharge Date: 07/22/18 Discharge Date: Expected LOS: 14 Initial Reviewer: JILLIAN Initial Review Date: 07/12/2018 Generated: 07/22/18 4:14 pm Comments DCP- Discharge Planning Updated by [id number]: Presely Mcintosh on 07/22/18 11:[address] Patient Name: MADELINE ROBINS Encounter No: [id number] : 1940 Primary Insurance: [facility] MEDICARE SOLUTIONS Anticipated DC Date: 07-20-2018 Planned Disposition: Prison Facility External Planned Provider: [facility] MEDICARE REHAB BED DCP follow-up note: CM FAXED REFERRAL UPDATE WITH REQUESTED BNP RESULTS REQUESTED BY FACILITY TO [facility] VIA MARTIN AT [phone]. CM NOTIFIED MARTIN OF REFERRAL UPDATE FAXED FOR REHAB AT [facility], . CM WAITING ACCEPTANCE FOR REHAB BY [facility]. PRESLEY MCINTOSH CASE MANAGEMENT Appended by Presley Mcintosh on 07/22/2018 12:44 EMBOSSOGRAPH OPERATOR: CM SPOKE TO PT AND DAUGHTER IN ROOM; CM ASKED ABOUT HOME UTILITIES; PT'S DAUGHTER REPORTS THEY HAVE WOOD HEATER, ELECTRICITY SERVICE AND RUNNING WATER AT HOME. PT IS STILL WANTING REHAB AT [facility]. CM EXPLAINED THAT UPDATE WAS FAXED THIS MORNING AND WAITING ON ADMISSION DETERNATION FROM [facility]. PT'S DAUGHTER REPORTS PT IS SLEEPING "A LOT" AND WANTS TO WAIT TO SEE IF THE ANXIETY PILL HELPS BEFORE DISCHARGE. CM EXPLAINED PT TO BE STABLE FOR DISCHARGE PER [facility] NOTES AND WILL MOST LIKELY DISCHARGE WHEN ACCEPTED FOR REHAB. IMPORTANT MESSAGE FROM MEDICARE PROVIDED AND EXPLAINED. CM WAITING ACCEPTANCE FOR REHAB BY [facility] [facility]. PRESLEY MCINTOSH CASE MANAGEMENT DCP- Discharge Planning Updated by [id number]: Presley Mcintosh on 07/19/18 3:[address] Patient Name: MADELINE ROBINS Encounter No: [id number] : 1940 Primary Insurance: [facility] MEDICARE SOLUTIONS Anticipated DC Date: 07-19-2018 Planned Disposition: Prison Facility External Planned Provider: [facility], MEDICARE REHAB BED DCP follow-up note: CM RECEIVED CALL FROM [facility], THEY ARE OUT OF NETWORK WITH PT'S INSURANCE. CM FAXED REFERRAL TO [facility] VIA MARTIN AT [phone]. CM NOTIFIED MARTIN OF REFERRAL FOR REHAB AT [facility], . CM WAITING ADMISSION DETERMINATION WELL INSURANCE AUTHORIZATION FOR REHAB AT [facility] IN [place]. 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 CM REVIEWED CHART, PT REQUIRES OXYGEN AT 3LNC. CM SPOKE TO PT WHO IS IN AGREEMENT WITH REHAB AT [facility], REPORTS HAVING PORTABLE OXYGEN BUT DOES NOT KNOW IF HER DAUGHTER CAN DRIVE HER TO REHAB TOMORROW. PT'S DAUGHTER AT [employer] APPOINTMENT NOW AND WILL BE BACK SHORTLY, PT ASKED CM TO TALK TO HER DAUGHTER ABOUT TRANSPORATATION ARRANGEMENTS. [facility] CAN ACCEPT PT 07-20-18 FOR REHAB IF FAMILY CAN TRANSPORT PT TO REHAB IN [place]. OTHERWISE, [facility] WILL ACCEPT PT ON 07-22-18 WHEN THEIR [place] CAN STEAM HEATING INSTALLER PT. FOR DISCHARGE, FAX DISCHARGE INFORMATION TO [facility] AT [phone]. CALL NURSE REPORT TO [facility] AT [phone]. PRESLEY MCINTOSH, CASE MANAGEMENT Appended by Presley Mcintosh on 07/19/2018 16:21 EMBOSSOGRAPH OPERATOR: CM CALLED AND SPOKE TO RICHARD FISCHER DTR, , WHO WILL BRING OXYGEN AND CAN TRANSPORT PT TO REHAB AT [facility] 07-20-18. LUZ NOTIFIED MARTIN OF [facility] WHO INFORMED CM THAT THE FACILITY NEEDS ANOTHER BNP RESULT. CM NOTIFIED ROBERTO BALDWIN OF FACILITY REQUEST FOR LAB. [facility] CAN ACCEPT PT 07-20-18 FOR REHAB, FAMILY CAN TRANSPORT PT TO REHAB IN [place] AND HAS OXYGEN. CALL [facility], WITH BNP RESULTS 07-20-17; AFTER ACCEPTANCE, FAX DISCHARGE INFORMATION TO [facility] AT [phone]. CALL NURSE REPORT TO [facility] AT [phone]. FAMILY TO TRANSPORT. RAIMUNDO MCGHEE DCP- Discharge Planning Updated by [id number]: Presley Mcintosh on 07/18/18 1:[address] Patient Name: MADELINE ROBINS Encounter No: [id number] : 1940 Primary Insurance: [facility] MEDICARE SOLUTIONS Anticipated DC Date: 07-19-2018 Planned Disposition: Prison Facility External Planned Provider: [facility] MEDICARE REHAB BED DCP follow-up note: CM SPOKE TO MACI OF INPATIENT REHAB WHO INFORMED CM THAT PT'S INSURANCE DECLINED INPATIENT REHAB, SUGGESTED HALF-WAY REHAB. CM MET WITH PT AND DAUGHTER IN ROOM, DISCUSSED INPATIENT DENIAL BY INSURANCE AND AVAILABILITY OF HALF-WAY REHAB PROVIDERS AND LOCATIONS. PT'S DAUGHTER WORKED AT [facility] AND PT STATES SHE WANTS TO REHAB THERE. CM EXPLAINED THAT THE FACILITY WOULD HAVE TO REVIEW AND ACCEPT AND PT'S INSURANCE WOULD HAVE TO AUTHORIZE SERVICES AT FACILITY. PT REPORTS UNDERSTANDING. SIGNED CHOICE FOR 1- [facility] AND 2-[facility]. IMPORTANT MESSAGE FROM MEDICARE PROVIDED AND EXPLAINED. CM CALLED [facility], , LEFT MESSAGE FOR MUNA REGARDING NEW REFERRAL FOR REHAB. CM FAXED REFERRAL TO [facility] AT [phone]. RAIMUNDO Mcghee DCP- Discharge Planning Updated by [id number]: Presley Mcintosh on 07/12/18 4:[address] Patient Name: MADELINE ROBINS Admission Status: ER Accout number: [id number] Admission Date: 07-08-2018 : 1940 Admission Diagnosis:HEART FAILURE, UNSPECIFIED Attending: ALYSSA GOLDEN Current LOS: 4 Anticipated DC Date: Planned Disposition: Inpatient Rehab Primary Insurance: [facility] MEDICARE SOLUTIONS PLANNED EXTERNAL PROVIDER: [facility] INPATIENT REHAB Discharge Planning Comments: CM RECIEVED ORDER FOR INPATIENT REHAB PRESCREENING. CM MET WITH PT AND DAUGHTER IN ROOM TO DISCUSS DISCHARGE PLANNING AND NEEDS. MADELINE ROBINS provided verbal consent to discuss current and ongoing needs with/in the presence of: RICHARD HALL. PT WANTS [facility] EMERGENCY CONTACT AND WANTS DAUGHTER ALEXI REMOVED EMERGENCY CONTACT. PT REPORTS LIVING AT HOME INDEPENDENTLY WITH FAMILY. PT HASHOME AND PORTABLE OXYGEN THAT WAS SET UP THE OTHER DAY WITH [facility]. PT ALSO HAS A CANE. PT HAS NO OUTSIDE SERVICES ASSISTING IN THE HOME. CM DISCUSSED AVAILABILITY OF HOME HEALTH, REHAB SERVICES AND MEDICAL EQUIPMENT. PT WANTS REHAB AT [facility], REPORTS HER DAUGHTER WILL PICK HER UP FOR DISCHARGE HOME. IMPORTANT MESSAGE FROM MEDICARE PROVIDED AND EXPLAINED. CM NOTIFIED RODERICK OF ADMISSIONS OF PT'S REQUEST TO REMOVE DAUGHTER ALEXI LEVI EMERGENCY CONTACT AND TO ADD DAUGHTER RICHARD FISCHER, . CM SPOKE TO MACI OF INPATIENT REHAB, NOTIFIED OF PT'S WANTING REHAB AT [place]. PT HAS MANAGED MEDICARE AND WILL REQUIRE PRIOR AUTHORIZATION FROM INSURANCE FOR REHAB SERVICES. CM TO CONTINUE TO FOLLOW AND ASSIST NEEDED. Immigration Case Manager: Presley Mcintosh DCPIA - Discharge Planning Initial Assessment Updated by [id number]: Presley Mcintosh on 07/12/18 5:31 pm * Is the patient Alert and Oriented? Yes * How many steps to enter\\exit or inside your home? NONE * PCP DR[facility] JOCELYN LUJAN IN [facility] * Pharmacy [facility] IN [place] * Preadmission Environment Home with Family * ADLs Independent * Equipment Home Photo Therapy * Other Equipment HOME AND PORTABLE OXYGEN - *NEEDS NEW OXYGEN QUALIFICATION TESTING PRIOR TO DISCHARGE HOME [facility] * List name and contact numbers for known caregivers / representatives who currently or will assist patient after discharge: RICHARD FISCHER, DTR, * Verbal permission to speak to the caregivers and representatives has been obtained from the patient. Yes * Community resources currently utilized None * Please name any agencies selected above. NONE * Additional services required to return to the preadmission environment? No * Can the patient safely return to the preadmission environment? Yes * Has this patient been hospitalized within the prior 30 days at any hospital? Yes External Providers External Provider: [facility] Contact Date: 07/22/2018 Service Request Date: Service Type: Resolution: Reviewer: Comments: Coverage Notice Reviewer: JILLIAN Mcintosh Notice Issued Date-Time: 07/12/2018 14:50 Notice Type: IM Discharge Notice Notice Delivered To: Patient Relationship to Patient: Management Trainee Program Stores Name: Delivery Method: HAND - Hand Delivered Susan Days: Prior Verbal Notification: Recipient Understood Notice: Yes Recipient Signature: Yes Med Rec Note Co-signed by Attending: Coverage Notice Comment: Reviewer: JILLIAN Mcintosh Notice Issued Date-Time: 07/18/2018 11:00 Notice Type: Patient Choice Letter Notice Delivered To: Patient Relationship to Patient: Management Trainee Program Stores Name: Delivery Method: HAND - Hand Delivered Susan Days: Prior Verbal Notification: Recipient Understood Notice: Yes Recipient Signature: Yes Med Rec Note Co-signed by Attending: Coverage Notice Comment: 1-[facility], 2-[facility] Reviewer: JILLIAN Mcintosh Notice Issued Date-Time: 07/18/2018 11:00 Notice Type: IM Discharge Notice Notice Delivered To: Patient Relationship to Patient: Management Trainee Program Stores Name: Delivery Method: HAND - Hand Delivered Susan Days: Prior Verbal Notification: Recipient Understood Notice: Yes Recipient Signature: Yes Med Rec Note Co-signed by Attending: Coverage Notice Comment: Reviewer: JILLIAN Mcintosh Notice Issued Date-Time: 07/22/2018 10:05 Notice Type: IM Discharge Notice Notice Delivered To: Family Member Relationship to Patient: Daughter Management Trainee Program Stores Name: RICHARD FISCHER Delivery Method: HAND - Hand Delivered Susan Days: Prior Verbal Notification: Recipient Understood Notice: Yes Recipient Signature: Yes Med Rec Note Co-signed by Attending: Coverage Notice Comment: Last DP export: 07/22/18 11:45 a Patient Name: MADELINE ROBINS Page [id number] at 1514 All edits/amendments must be made on the electronic document DICTATION DATE: 07/22/18 151 B AND B GANG WORKER: RUBA 07/22/181512 RPT#: [id number] NM DATE: STATUS: ADM IN [facility] [address] [place] [address] END OF REPORT
--- NOTE | 2018-07-22 15:31 | MORECARE ---
CASE MANAGEMENT DISCHARGE SUMMARY PATIENT: MADELINE ROBINS UNIT: [id number] ADM DATE: 07/08/18 AGE: 77 : 38 SEX: F ROOM/BED: D.9862 AUTHOR: TATA,DOC PHYSICIAN: REFERRING PHYSICIAN: ALYSSA GOLDEN MD DATE OF SERVICE: 07/22/18 Discharge Plan Patient Name: MADELINE ROBINS Facility: [facility]:[place] : 1940 Planned Disposition: Halfway Facility Anticipated Discharge Date: 07/22/18 Discharge Date: Expected LOS: 14 Initial Reviewer: [id number] Initial Review Date: 07/12/2018 Generated: 07/22/18 4:31 pm Comments DCP- Discharge Planning Updated by [id number]: Presley Mcintosh on 07/22/18 2:[address] Patient Name: MADELINE ROBINS Encounter No: [id number] : 1940 Primary Insurance: [facility] MEDICARE SOLUTIONS Anticipated DC Date: 07-20-2018 Planned Disposition: Halfway Facility External Planned Provider: [facility] MEDICARE REHAB BED DCP follow-up note: CM FAXED REFERRAL UPDATE WITH REQUESTED BNP RESULTS REQUESTED BY FACILITY TO [facility] VIA MARTIN AT [phone]. CM NOTIFIED MARTIN OF REFERRAL UPDATE FAXED FOR REHAB AT [facility], . CM WAITING ACCEPTANCE FOR REHAB BY [facility]. PRESLEY MCINTOSH CASE MANAGEMENT Appended by Presley Mcintosh on 07/22/2018 12:44 INDUSTRIAL COMMERCIAL GROUNDSKEEPER: CM SPOKE TO PT AND DAUGHTER IN ROOM; CM ASKED ABOUT HOME UTILITIES; PT'S DAUGHTER REPORTS THEY HAVE WOOD HEATER, ELECTRICITY SERVICE AND RUNNING WATER AT HOME. PT IS STILL WANTING REHAB AT [facility]. CM EXPLAINED THAT UPDATE WAS FAXED THIS MORNING AND WAITING ON ADMISSION DETERNATION FROM [facility]. PT'S DAUGHTER REPORTS PT IS SLEEPING "A LOT" AND WANTS TO WAIT TO SEE IF THE ANXIETY PILL HELPS BEFORE DISCHARGE. CM EXPLAINED PT TO BE STABLE FOR DISCHARGE PER [facility] NOTES AND WILL MOST LIKELY DISCHARGE WHEN ACCEPTED FOR REHAB. IMPORTANT MESSAGE FROM MEDICARE PROVIDED AND EXPLAINED. CM WAITING ACCEPTANCE FOR REHAB BY [facility]. PRESLEY MCINTOSH CASE MANAGEMENT Appended by Presley Mcintosh on 07/22/2018 15:27 INDUSTRIAL COMMERCIAL GROUNDSKEEPER: CM RECEIVED DISCHARGE ORDER, SPOKE TO PT AND DAUGHTER IN ROOM, PTS DAUGHTER INFORMED CM SHE IS DRIVING PT TO [place] AND NEEDS PORTABLE OXYGEN, SHE HAS [facility] PATIENT, THE PORTABLE SHE HAS IS EMPTY. CM CALLED VAISHNAVI AT [facility], , WHO WILL DELIVER E TANK OF OXYGEN TO HOSPITAL ROOM TO ENSURE PT HAS ENOUGH TO GET TO [place] TODAY. CM FAXED UPDATED OXYGEN TESTING, HISTORY AND PHYSICAL AND PULMONARY NOTE REQUESTED TO [facility] PATIENT, . CM FAXED DISCHARGE INFORMATION TO MARTIN LIM [facility], . RADIOISOTOPE TECHNOLOGIST NOTIFIED. CALL NURSE REPORT TO [facility] AT [phone]. FAMILY TO TRANSPORT. PRESLEY MCINTOSH, CASE MANAGEMENT DCP- Discharge Planning Updated by [id number]: Presley Mcintosh on 07/19/18 3:[address] Patient Name: MADELINE ROBINS Encounter No: [id number] : 1940 Primary Insurance: [facility] MEDICARE SOLUTIONS Anticipated DC Date: 07-19-2018 Planned Disposition: Halfway Facility External Planned Provider: [facility] MEDICARE REHAB BED DCP follow-up note: CM RECEIVED CALL FROM MUNA OF [facility], THEY ARE OUT OF NETWORK WITH PT'S INSURANCE. CM FAXED REFERRAL TO [facility] VIA MARTIN AT [phone]. CM NOTIFIED MARTIN OF REFERRAL FOR REHAB AT [facility], . CM WAITING ADMISSION DETERMINATION WELL INSURANCE AUTHORIZATION FOR [facility] IN [place]. Presley Mcintosh, CASE MANAGEMENT Appended by Presley Mcintosh on 07/19/2018 15:03 INDUSTRIAL COMMERCIAL GROUNDSKEEPER: CM RECEIVED MESSAGE FROM MARTIN LIM [facility], THEY HAVE ACCEPTED PT FOR REHAB AND CANNOT CRT PT IN [place] UNTIL 07-22-18; [facility] WOULD ACCEPT PT ON 07-20-18 IF FAMILY CAN TRANSPORT. CM REVIEWED CHART, PT REQUIRES OXYGEN AT 3LNC. CM SPOKE TO PT WHO IS IN AGREEMENT WITH REHAB AT [facility], REPORTS HAVING PORTABLE OXYGEN BUT DOES NOT KNOW IF HER DAUGHTER CAN DRIVE HER TO REHAB TOMORROW. PT'S DAUGHTER AT [employer] APPOINTMENT NOW AND WILL BE BACK SHORTLY, PT ASKED CM TO TALK TO HER DAUGHTER ABOUT TRANSPORATATION ARRANGEMENTS. [facility] CAN ACCEPT PT 07-20-18 FOR REHAB IF FAMILY CAN TRANSPORT PT TO REHAB IN [place]. OTHERWISE, [facility] WILL ACCEPT PT ON 07-22-18 WHEN THEIR [place] CAN CRT PT. FOR DISCHARGE, FAX DISCHARGE INFORMATION TO [facility] AT [phone]. CALL NURSE REPORT TO [facility] AT [phone]. PRESLEY MCINTOSH, CASE MANAGEMENT Appended by Presley Mcintosh on 07/19/2018 16:21 INDUSTRIAL COMMERCIAL GROUNDSKEEPER: CM CALLED AND SPOKE TO RICHARD FISCHER, DTR, , WHO WILL BRING OXYGEN AND CAN TRANSPORT PT TO REHAB AT [facility] 07-20-18. CM NOTIFIED MARTIN OF [facility] WHO INFORMED CM THAT THE FACILITY NEEDS ANOTHER BNP RESULT. CM NOTIFIED ROBERTO BALDWIN OF FACILITY REQUEST FOR LAB. [facility] CAN ACCEPT PT 07-20-18 FOR REHAB, FAMILY CAN TRANSPORT PT TO REHAB IN [place] AND HAS OXYGEN. CALL [facility], WITH BNP RESULTS 07-20-17; AFTER ACCEPTANCE, FAX DISCHARGE INFORMATION TO [facility] AT [phone]. CALL NURSE REPORT TO [facility] AT [phone]. FAMILY TO TRANSPORT. PRESLEY MCINTOSH, CASE MANAGEMENT DCP- Discharge Planning Updated by [id number]: Presley Mcintosh on 07/18/18 1:[address] Patient Name: MADELINE ROBINS Encounter No: [id number] : 1940 Primary Insurance: [facility] MEDICARE SOLUTIONS Anticipated DC Date: 07-19-2018 Planned Disposition: Halfway Facility External Planned Provider: [facility], MEDICARE REHAB BED DCP follow-up note: CM SPOKE TO MACI OF INPATIENT REHAB WHO INFORMED CM THAT PT'S INSURANCE DECLINED INPATIENT REHAB, SUGGESTED [facility]. CM MET WITH PT AND DAUGHTER IN ROOM, DISCUSSED INPATIENT DENIAL BY INSURANCE AND AVAILABILITY OF [facility]AIL REHAB PROVIDERS AND LOCATIONS. PT'S DAUGHTER WORKED AT [facility] AND PT STATES SHE WANTS TO REHAB THERE. CM EXPLAINED THAT THE FACILITY WOULD HAVE TO REVIEW AND ACCEPT AND PT'S INSURANCE WOULD HAVE TO AUTHORIZE SERVICES AT FACILITY. PT REPORTS UNDERSTANDING. SIGNED CHOICE FOR 1- [facility] AND 2-[facility]. IMPORTANT MESSAGE FROM MEDICARE PROVIDED AND EXPLAINED. CM CALLED [facility], , LEFT MESSAGE FOR MUNA REGARDING NEW REFERRAL FOR REHAB. CM FAXED REFERRAL TO [facility] AT [phone]. Presley Mcintosh, CASE MANAGEMENT DCP- Discharge Planning Updated by [id number]: Presley Mcintosh on 07/12/18 4:[address] Patient Name: MADELINE ROBINS Admission Status: ER Accout number: [id number] Admission Date: 07-08-2018 : 1940 Admission Diagnosis:HEART FAILURE, UNSPECIFIED Attending: ALYSSA GOLDEN Current LOS: 4 Anticipated DC Date: Planned Disposition: Inpatient Rehab Primary Insurance: [facility] MEDICARE SOLUTIONS PLANNED EXTERNAL PROVIDER: [facility] INPATIENT REHAB Discharge Planning Comments: CM RECIEVED ORDER FOR INPATIENT REHAB PRESCREENING. CM MET WITH PT AND DAUGHTER IN ROOM TO DISCUSS DISCHARGE PLANNING AND NEEDS. MADELINE ROBINS provided verbal consent to discuss current and ongoing needs with/in the presence of: RICHARD HALL. PT WANTS [facility] EMERGENCY CONTACT AND WANTS DAUGHTER ALEXI REMOVED EMERGENCY CONTACT. PT REPORTS LIVING AT HOME INDEPENDENTLY WITH FAMILY. PT HASHOME AND PORTABLE OXYGEN THAT WAS SET UP THE OTHER DAY WITH [facility] PATIENT. PT ALSO HAS A CANE. PT HAS NO OUTSIDE SERVICES ASSISTING IN THE HOME. CM DISCUSSED AVAILABILITY OF HOME HEALTH, REHAB SERVICES AND MEDICAL EQUIPMENT. PT WANTS REHAB AT [facility], REPORTS HER DAUGHTER WILL PICK HER UP FOR DISCHARGE HOME. IMPORTANT MESSAGE FROM MEDICARE PROVIDED AND EXPLAINED. CM NOTIFIED RODERICK OF ADMISSIONS OF PT'S REQUEST TO REMOVE DAUGHTER ALEXI LEVI EMERGENCY CONTACT AND TO ADD DAUGHTER RICHARD FISCHER, . CM SPOKE TO MACI OF INPATIENT REHAB, NOTIFIED OF PT'S WANTING REHAB AT [place]. PT HAS MANAGED MEDICARE AND WILL REQUIRE PRIOR AUTHORIZATION FROM INSURANCE FOR REHAB SERVICES. CM TO CONTINUE TO FOLLOW AND ASSIST NEEDED. Aluminum Can Collector: Presley Mcintosh DCPIA - Discharge Planning Initial Assessment Updated by [id number]: Presley Mcintosh on 07/12/18 5:31 pm * Is the patient Alert and Oriented? Yes * How many steps to enter\\exit or inside your home? NONE * PCP DR. JOCELYN LUJAN IN [facility] * Pharmacy [facility] IN [place] * Preadmission Environment Home with Family * ADLs Independent * Equipment Home Photo Therapy * Other Equipment HOME AND PORTABLE OXYGEN - *NEEDS NEW OXYGEN QUALIFICATION TESTING PRIOR TO DISCHARGE HOME [facility] PATIENT * List name and contact numbers for known caregivers / representatives who currently or will assist patient after discharge: RICHARD FISCHERJASONR, * Verbal permission to speak to the caregivers and representatives has been obtained from the patient. Yes * Community resources currently utilized None * Please name any agencies selected above. NONE * Additional services required to return to the preadmission environment? No * Can the patient safely return to the preadmission environment? Yes * Has this patient been hospitalized within the prior 30 days at any hospital? Yes Coverage Notice Reviewer: JILLIAN Mcintosh Notice Issued Date-Time: 07/22/2018 10:05 Notice Type: IM Discharge Notice Notice Delivered To: Family Member Relationship to Patient: Daughter Hopper Attendant Name: RICHARD FISCHER Delivery Method: HAND - Hand Delivered Susan Days: Prior Verbal Notification: Recipient Understood Notice: Yes Recipient Signature: Yes Med Rec Note Co-signed by Attending: Coverage Notice Comment: Reviewer: JILLIAN Mcintosh Notice Issued Date-Time: 07/18/2018 11:00 Notice Type: Patient Choice Letter Notice Delivered To: Patient Relationship to Patient: Hopper Attendant Name: Delivery Method: HAND - Hand Delivered Susan Days: Prior Verbal Notification: Recipient Understood Notice: Yes Recipient Signature: Yes Med Rec Note Co-signed by Attending: Coverage Notice Comment: 1-[facility] RODRIGUE[facility], 2-[facility] Reviewer: JILLIAN Mcintosh Notice Issued Date-Time: 07/18/2018 11:00 Notice Type: IM Discharge Notice Notice Delivered To: Patient Relationship to Patient: Hopper Attendant Name: Delivery Method: HAND - Hand Delivered Susan Days: Prior Verbal Notification: Recipient Understood Notice: Yes Recipient Signature: Yes Med Rec Note Co-signed by Attending: Coverage Notice Comment: Reviewer: JILLIAN Mcintosh Notice Issued Date-Time: 07/12/2018 14:50 Notice Type: IM Discharge Notice Notice Delivered To: Patient Relationship to Patient: Hopper Attendant Name: Delivery Method: HAND - Hand Delivered Susan Days: Prior Verbal Notification: Recipient Understood Notice: Yes Recipient Signature: Yes Med Rec Note Co-signed by Attending: Coverage Notice Comment: Last DP export: 07/22/18 2:14 p Patient Name: MADELINE ROBINS Page 76614 at 1531 All edits/amendments must be made on the electronic document DICTATION DATE: 07/22/181529 ASBESTOS BRAKE LINING FINISHER HELPER: RUBA 07/22/181529 RPT#: [id number] DC DATE: STATUS: ADM IN [facility] [address] [place] [address] END OF REPORT
--- NOTE | 2018-07-22 16:00 | MORECARE ---
CASE MANAGEMENT DISCHARGE SUMMARY PATIENT: MADELINE ROBINS UNIT: [id number] ADM DATE: 07/08/18 AGE: 77 : 38 SEX: F ROOM/BED: D.3465 AUTHOR: TATA,DOC PHYSICIAN: REFERRING PHYSICIAN: ALYSSA GOLDEN MD DATE OF SERVICE: 07/22/18 Discharge Plan Patient Name: MADELINE ROBINS Facility: [facility]:[place] : 1940 Planned Disposition: Custodial Facility Anticipated Discharge Date: 07/22/18 Discharge Date: Expected LOS: 14 Initial Reviewer: [id number] Initial Review Date: 07/12/2018 Generated: 07/22/18 5:00 pm Comments DCP- Discharge Planning Updated by [id number]: Presley Mcintosh on 07/22/18 2:[address] Patient Name: MADELINE ROBINS Encounter No: [id number] : 1940 Primary Insurance: [facility] MEDICARE SOLUTIONS Anticipated DC Date: 07-20-2018 Planned Disposition: Custodial Facility External Planned Provider: [facility] MEDICARE REHAB BED DCP follow-up note: CM FAXED REFERRAL UPDATE WITH REQUESTED BNP RESULTS REQUESTED BY FACILITY TO [facility] VIA MARTIN AT [phone]. CM NOTIFIED MARTIN OF REFERRAL UPDATE FAXED FOR REHAB AT [facility], . CM WAITING ACCEPTANCE FOR REHAB BY [facility]. PRESLEY MCINTOSH CASE MANAGEMENT Appended by Presley Mcintosh on 07/22/2018 12:44 TISSUE COORDINATOR: CM SPOKE TO PT AND DAUGHTER IN ROOM; CM ASKED ABOUT HOME UTILITIES; PT'S DAUGHTER REPORTS THEY HAVE WOOD HEATER, ELECTRICITY SERVICE AND RUNNING WATER AT HOME. PT IS STILL WANTING REHAB AT [facility]. CM EXPLAINED THAT UPDATE WAS FAXED THIS MORNING AND WAITING ON ADMISSION DETERNATION FROM [facility]. PT'S DAUGHTER REPORTS PT IS SLEEPING "A LOT" AND WANTS TO WAIT TO SEE IF THE ANXIETY PILL HELPS BEFORE DISCHARGE. CM EXPLAINED PT TO BE STABLE FOR DISCHARGE PER [facility] NOTES AND WILL MOST LIKELY DISCHARGE WHEN ACCEPTED FOR REHAB. IMPORTANT MESSAGE FROM MEDICARE PROVIDED AND EXPLAINED. CM WAITING ACCEPTANCE FOR REHAB BY [facility] SN[facility]. PRESLEY MCINTOSH CASE MANAGEMENT Appended by Presley Mcintosh on 07/22/2018 15:27 TISSUE COORDINATOR: CM RECEIVED DISCHARGE ORDER, SPOKE TO PT AND DAUGHTER IN ROOM, PTS DAUGHTER INFORMED CM SHE IS DRIVING PT TO [place] AND NEEDS PORTABLE OXYGEN, SHE HAS [facility] PATIENT, THE PORTABLE SHE HAS IS EMPTY. CM CALLED VAISHNAVI AT [facility], , WHO WILL DELIVER E TANK OF OXYGEN TO HOSPITAL ROOM TO ENSURE PT HAS ENOUGH TO GET TO [place] TODAY. CM FAXED UPDATED OXYGEN TESTING, HISTORY AND PHYSICAL AND PULMONARY NOTE REQUESTED TO [facility] PATIENT, . CM FAXED DISCHARGE INFORMATION TO MARTIN LIM [facility], . FIELD ASSOCIATE NOTIFIED. CALL NURSE REPORT TO [facility] AT [phone]. FAMILY TO TRANSPORT. PRESLEY MCINTOSH, CASE MANAGEMENT DCP- Discharge Planning Updated by [id number]: Presley Mcintosh on 07/19/18 3:[address] Patient Name: MADELINE ROBINS Encounter No: [id number] : 1940 Primary Insurance: [facility] MEDICARE SOLUTIONS Anticipated DC Date: 07-19-2018 Planned Disposition: Custodial Facility External Planned Provider: [facility] MEDICARE REHAB BED DCP follow-up note: CM RECEIVED CALL FROM MUNA OF [facility], THEY ARE OUT OF NETWORK WITH PT'S INSURANCE. CM FAXED REFERRAL TO [facility] VIA MARTIN AT [phone]. CM NOTIFIED MARTIN OF REFERRAL FOR REHAB AT [facility], . CM WAITING ADMISSION DETERMINATION WELL INSURANCE AUTHORIZATION FOR REHAB AT [facility] IN [place]. 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 CM REVIEWED CHART, PT REQUIRES OXYGEN AT 3LNC. CM SPOKE TO PT WHO IS IN AGREEMENT WITH REHAB AT [facility], REPORTS HAVING PORTABLE OXYGEN BUT DOES NOT KNOW IF HER DAUGHTER CAN DRIVE HER TO REHAB TOMORROW. PT'S DAUGHTER AT [employer] APPOINTMENT NOW AND WILL BE BACK SHORTLY, PT ASKED CM TO TALK TO HER DAUGHTER ABOUT TRANSPORATATION ARRANGEMENTS. [facility] CAN ACCEPT PT 07-20-18 FOR REHAB IF FAMILY CAN TRANSPORT PT TO REHAB IN [place]. 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 FOR DISCHARGE, FAX DISCHARGE INFORMATION TO [facility] AT [phone]. CALL NURSE REPORT TO [facility] AT [phone]. PRESLEY MCINTOSH, CASE MANAGEMENT Appended by Presley Mcintosh on 07/19/2018 16:21 TISSUE COORDINATOR: CM CALLED AND SPOKE TO RICHARD FISCHER, DTR, , WHO WILL BRING OXYGEN AND CAN TRANSPORT PT TO REHAB AT [facility] 07-20-18. CM NOTIFIED MARTIN OF [facility] WHO INFORMED CM THAT THE FACILITY NEEDS ANOTHER BNP RESULT. CM NOTIFIED ROBERTO BALDWIN OF FACILITY REQUEST FOR LAB. [facility] CAN ACCEPT PT 07-20-18 FOR REHAB, FAMILY CAN TRANSPORT PT TO REHAB IN [place] AND HAS OXYGEN. CALL [facility], WITH BNP RESULTS 07-20-17; AFTER ACCEPTANCE, FAX DISCHARGE INFORMATION TO [facility] AT [phone]. CALL NURSE REPORT TO [facility] AT [phone]. FAMILY TO TRANSPORT. PRESLEY MCINTOSH, CASE MANAGEMENT DCP- Discharge Planning Updated by [id number]: Presley Mcintosh on 07/18/18 1:[address] Patient Name: MADELINE ROBINS Encounter No: [id number] : 1940 Primary Insurance: [facility] MEDICARE SOLUTIONS Anticipated DC Date: 07-19-2018 Planned Disposition: Custodial Facility External Planned Provider: [facility], MEDICARE REHAB BED DCP follow-up note: CM SPOKE TO MACI OF INPATIENT REHAB WHO INFORMED CM THAT PT'S INSURANCE DECLINED INPATIENT REHAB, SUGGESTED SNF REHAB. CM MET WITH PT AND DAUGHTER IN ROOM, DISCUSSED INPATIENT DENIAL BY INSURANCE AND AVAILABILITY OF SNF REHAB PROVIDERS AND LOCATIONS. PT'S DAUGHTER WORKED AT [facility] AND PT STATES SHE WANTS TO REHAB THERE. CM EXPLAINED THAT THE FACILITY WOULD HAVE TO REVIEW AND ACCEPT AND PT'S INSURANCE WOULD HAVE TO AUTHORIZE SERVICES AT FACILITY. PT REPORTS UNDERSTANDING. SIGNED CHOICE FOR 1- [facility] AND 2-[facility]. IMPORTANT MESSAGE FROM MEDICARE PROVIDED AND EXPLAINED. CM CALLED [facility], , LEFT MESSAGE FOR [facility] REGARDING NEW REFERRAL FOR REHAB. CM FAXED REFERRAL TO [facility] AT [phone]. Presley Mcintosh, CASE MANAGEMENT DCP- Discharge Planning Updated by [id number]: Presley Mcintosh on 07/12/18 4:[address] Patient Name: MADELINE ROBINS Admission Status: ER Accout number: [id number] Admission Date: 07-08-2018 : 1940 Admission Diagnosis:HEART FAILURE, UNSPECIFIED Attending: ALYSSA GOLDEN Current LOS: 4 Anticipated DC Date: Planned Disposition: Inpatient Rehab Primary Insurance: [facility] MEDICARE SOLUTIONS PLANNED EXTERNAL PROVIDER: [facility] INPATIENT REH[facility] Discharge Planning Comments: CM RECIEVED ORDER FOR INPATIENT REHAB PRESCREENING. CM MET WITH PT AND DAUGHTER IN ROOM TO DISCUSS DISCHARGE PLANNING AND NEEDS. MADELINE ROBINS provided verbal consent to discuss current and ongoing needs with/in the presence of: RICHARD HALL. PT WANTS R[facility]ARD EMERGENCY CONTACT AND WANTS DAUGHTER ALEXI REMOVED EMERGENCY CONTACT. PT REPORTS LIVING AT HOME INDEPENDENTLY WITH FAMILY. PT HASHOME AND PORTABLE OXYGEN THAT WAS SET UP THE OTHER DAY WITH [facility] PATIENT. PT ALSO HAS A CANE. PT HAS NO OUTSIDE SERVICES ASSISTING IN THE HOME. CM DISCUSSED AVAILABILITY OF HOME HEALTH, REHAB SERVICES AND MEDICAL EQUIPMENT. PT WANTS REHAB AT [facility], REPORTS HER DAUGHTER WILL PICK HER UP FOR DISCHARGE HOME. IMPORTANT MESSAGE FROM MEDICARE PROVIDED AND EXPLAINED. CM NOTIFIED RODERICK OF ADMISSIONS OF PT'S REQUEST TO REMOVE DAUGHTER ALEXI LEVI EMERGENCY CONTACT AND TO ADD DAUGHTER RICHARD FISCHER, . CM SPOKE TO MACI OF INPATIENT REHAB, NOTIFIED OF PT'S WANTING REHAB AT [place]. PT HAS MANAGED MEDICARE AND WILL REQUIRE PRIOR AUTHORIZATION FROM INSURANCE FOR REHAB SERVICES. CM TO CONTINUE TO FOLLOW AND ASSIST NEEDED. Prior Authorization Nurse: Presley Mcintosh DCPIA - Discharge Planning Initial Assessment Updated by [id number]: Presley Mcintosh on 07/12/18 5:31 pm * Is the patient Alert and Oriented? Yes * How many steps to enter\\exit or inside your home? NONE * PCP DR. JOCELYN LUJAN IN [facility] * Pharmacy [facility] IN [place] * Preadmission Environment Home with Family * ADLs Independent * Equipment Home Photo Therapy * Other Equipment HOME AND PORTABLE OXYGEN - *NEEDS NEW OXYGEN QUALIFICATION TESTING PRIOR TO DISCHARGE HOME [facility] PATIENT * List name and contact numbers for known caregivers / representatives who currently or will assist patient after discharge: RICHARD FISCHER DTR, * Verbal permission to speak to the caregivers and representatives has been obtained from the patient. Yes * Community resources currently utilized None * Please name any agencies selected above. NONE * Additional services required to return to the preadmission environment? No * Can the patient safely return to the preadmission environment? Yes * Has this patient been hospitalized within the prior 30 days at any hospital? Yes Coverage Notice Reviewer: JILLIAN Mcintosh Notice Issued Date-Time: 07/12/2018 14:50 Notice Type: IM Discharge Notice Notice Delivered To: Patient Relationship to Patient: Chief Ophthalmic Technician Name: Delivery Method: HAND - Hand Delivered Susan Days: Prior Verbal Notification: Recipient Understood Notice: Yes Recipient Signature: Yes Med Rec Note Co-signed by Attending: Coverage Notice Comment: Reviewer: JILLIAN Mcintosh Notice Issued Date-Time: 07/18/2018 11:00 Notice Type: Patient Choice Letter Notice Delivered To: Patient Relationship to Patient: Chief Ophthalmic Technician Name: Delivery Method: HAND - Hand Delivered Susan Days: Prior Verbal Notification: Recipient Understood Notice: Yes Recipient Signature: Yes Med Rec Note Co-signed by Attending: Coverage Notice Comment: 1-ALVARADO RODRIGUEZ, 2-KIMO OLIVA Reviewer: JILLIAN Mcintosh Notice Issued Date-Time: 07/18/2018 11:00 Notice Type: IM Discharge Notice Notice Delivered To: Patient Relationship to Patient: Chief Ophthalmic Technician Name: Delivery Method: HAND - Hand Delivered Susan Days: Prior Verbal Notification: Recipient Understood Notice: Yes Recipient Signature: Yes Med Rec Note Co-signed by Attending: Coverage Notice Comment: Reviewer: JILLIAN Mcintosh Notice Issued Date-Time: 07/22/2018 10:05 Notice Type: IM Discharge Notice Notice Delivered To: Family Member Relationship to Patient: Daughter Chief Ophthalmic Technician Name: RICHARD FISCHER Delivery Method: HAND - Hand Delivered Susan Days: Prior Verbal Notification: Recipient Understood Notice: Yes Recipient Signature: Yes Med Rec Note Co-signed by Attending: Coverage Notice Comment: Last DP export: 07/22/18 2:31 p Patient Name: MADELINE ROBINS Page [id number] at 1600 All edits/amendments must be made on the electronic document DICTATION DATE: 07/22/181599 HISTORY CARD CLERK: RUBA 07/22/181599 RPT#: [id number] DC DATE: STATUS: ADM IN [facility] [address] [place] [address] END OF REPORT
--- NOTE | 2018-07-22 16:11 | MORECARE ---
CASE MANAGEMENT DISCHARGE SUMMARY PATIENT: MADELINE ROBINS UNIT: [id number] ADM DATE: 07/08/18 AGE: 77 : 38 SEX: F ROOM/BED: D.6627 AUTHOR: TATA,DOC PHYSICIAN: REFERRING PHYSICIAN: ALYSSA GOLDEN MD DATE OF SERVICE: 07/22/18 Discharge Plan Patient Name: MADELINE ROBINS Facility: [facility]:[place] : 1940 Planned Disposition: Prison Facility Anticipated Discharge Date: 07/22/18 Discharge Date: Expected LOS: 14 Initial Reviewer: [id number] Initial Review Date: 07/12/2018 Generated: 07/22/18 5:11 pm Comments DCP- Discharge Planning Updated by [id number]: Presley Mcintosh on 07/22/18 2:[address] Patient Name: MADELINE ROBINS Encounter No: [id number] : 1940 Primary Insurance: [facility] MEDICARE SOLUTIONS Anticipated DC Date: 07-20-2018 Planned Disposition: Prison Facility External Planned Provider: [facility] MEDICARE REHAB BED DCP follow-up note: CM FAXED REFERRAL UPDATE WITH REQUESTED BNP RESULTS REQUESTED BY FACILITY TO [facility]IA MARTIN AT [phone]. CM NOTIFIED MARTIN OF REFERRAL UPDATE FAXED FOR REHAB AT [facility], . CM WAITING ACCEPTANCE FOR REHAB BY [facility]. PRESLEY MCINTOSH CASE MANAGEMENT Appended by Presley Mcintosh on 07/22/2018 12:44 NAVAL AIRCREWMAN MECHANICAL: CM SPOKE TO PT AND DAUGHTER IN ROOM; CM ASKED ABOUT HOME UTILITIES; PT'S DAUGHTER REPORTS THEY HAVE WOOD HEATER, ELECTRICITY SERVICE AND RUNNING WATER AT HOME. PT IS STILL WANTING REHAB AT [facility]. CM EXPLAINED THAT UPDATE WAS FAXED THIS MORNING AND WAITING ON ADMISSION DETERNATION FROM [facility]. PT'S DAUGHTER REPORTS PT IS SLEEPING "A LOT" AND WANTS TO WAIT TO SEE IF THE ANXIETY PILL HELPS BEFORE DISCHARGE. CM EXPLAINED PT TO BE STABLE FOR DISCHARGE PER [facility] NOTES AND WILL MOST LIKELY DISCHARGE WHEN ACCEPTED FOR REHAB. IMPORTANT MESSAGE FROM MEDICARE PROVIDED AND EXPLAINED. CM WAITING ACCEPTANCE FOR REHAB BY [facility]. PRESLEY MCINTOSH CASE MANAGEMENT Appended by Presley Mcintosh on 07/22/2018 15:27 NAVAL AIRCREWMAN MECHANICAL: CM RECEIVED DISCHARGE ORDER, SPOKE TO PT AND DAUGHTER IN ROOM, PTS DAUGHTER INFORMED CM SHE IS DRIVING PT TO [place] AND NEEDS PORTABLE OXYGEN, SHE HAS [facility] PATIENT, THE PORTABLE SHE HAS IS EMPTY. CM CALLED VAISHNAVI AT [facility], , WHO WILL DELIVER E TANK OF OXYGEN TO HOSPITAL ROOM TO ENSURE PT HAS ENOUGH TO GET TO [place] TODAY. CM FAXED UPDATED OXYGEN TESTING, HISTORY AND PHYSICAL AND PULMONARY NOTE REQUESTED TO [facility] PATIENT, . CM FAXED DISCHARGE INFORMATION TO MARTIN LIM [facility], . MANAGER PLAN NOTIFIED. CALL NURSE REPORT TO [facility] AT [phone]. FAMILY TO TRANSPORT. PRESLEY MCINTOSH, CASE MANAGEMENT DCP- Discharge Planning Updated by [id number]: Presley Mcintosh on 07/19/18 3:[address] Patient Name: MADELINE ROBINS Encounter No: [id number] : 1940 Primary Insurance: [facility] MEDICARE SOLUTIONS Anticipated DC Date: 07-19-2018 Planned Disposition: Prison Facility External Planned Provider: [facility] MEDICARE REHAB BED DCP follow-up note: CM RECEIVED CALL FROM MUNA OF [facility], THEY ARE OUT OF NETWORK WITH PT'S INSURANCE. CM FAXED REFERRAL TO [facility]IA [facility]ARTIN AT [phone]. CM NOTIFIED MARTIN OF REFERRAL FOR REHAB AT [facility], . CM WAITING ADMISSION DETERMINATION WELL INSURANCE AUTHORIZATION FOR REHAB AT REPLACED BY [facility] IN [place]. Presley Mcintosh, CASE MANAGEMENT Appended by Presley Mcintosh on 07/19/2018 15:03 NAVAL AIRCREWMAN MECHANICAL: CM RECEIVED MESSAGE FROM MARTIN LIM [facility], THEY HAVE ACCEPTED PT FOR REHAB AND CANNOT LIQUID LOADER PT IN [place] UNTIL 07-22-18; [facility] WOULD ACCEPT PT ON 07-20-18 IF FAMILY CAN TRANSPORT. CM REVIEWED CHART, PT REQUIRES OXYGEN AT 3LNC. CM SPOKE TO PT WHO IS IN AGREEMENT WITH REHAB AT [facility], REPORTS HAVING PORTABLE OXYGEN BUT DOES NOT KNOW IF HER DAUGHTER CAN DRIVE HER TO REHAB TOMORROW. PT'S DAUGHTER AT [employer] APPOINTMENT NOW AND WILL BE BACK SHORTLY, PT ASKED CM TO TALK TO HER DAUGHTER ABOUT TRANSPORATATION ARRANGEMENTS. [facility] CAN ACCEPT PT 07-20-18 FOR REHAB IF FAMILY CAN TRANSPORT PT TO REHAB IN [place]. OTHERWISE, [facility] WILL ACCEPT PT ON 07-22-18 WHEN THEIR [place] CAN LIQUID LOADER PT. FOR DISCHARGE, FAX DISCHARGE INFORMATION TO [facility] AT [phone]. CALL NURSE REPORT TO [facility] AT [phone]. PRESLEY MCINTOSH, CASE MANAGEMENT Appended by Presley Mcintosh on 07/19/2018 16:21 NAVAL AIRCREWMAN MECHANICAL: CM CALLED AND SPOKE TO RICHARD FISCHER, DTR, , WHO WILL BRING OXYGEN AND CAN TRANSPORT PT TO REHAB AT [facility] 07-20-18. CM NOTIFIED MARTIN OF [facility] WHO INFORMED CM THAT THE FACILITY NEEDS ANOTHER BNP RESULT. CM NOTIFIED ROBERTO BALDWIN OF FACILITY REQUEST FOR LAB. [facility] CAN ACCEPT PT 07-20-18 FOR REHAB, FAMILY CAN TRANSPORT PT TO REHAB IN [place] AND HAS OXYGEN. CALL [facility], WITH BNP RESULTS 07-20-17; AFTER ACCEPTANCE, FAX DISCHARGE INFORMATION TO [facility] AT [phone]. CALL NURSE REPORT TO [facility] AT [phone]. FAMILY TO TRANSPORT. PRESLEY MCINTOSH, CASE MANAGEMENT DCP- Discharge Planning Updated by [id number]: Presley Mcintosh on 07/18/18 1:[address] Patient Name: MADELINE ROBINS Encounter No: [id number] : 1940 Primary Insurance: [facility] MEDICARE SOLUTIONS Anticipated DC Date: 07-19-2018 Planned Disposition: Prison Facility External Planned Provider: [facility], MEDICARE REHAB BED DCP follow-up note: CM SPOKE TO MACI OF INPATIENT REHAB WHO INFORMED CM THAT PT'S INSURANCE DECLINED INPATIENT REHAB, SUGGESTED [facility]. CM MET WITH PT AND DAUGHTER IN ROOM, DISCUSSED INPATIENT DENIAL BY INSURANCE AND AVAILABILITY OF [facility] REHAB PROVIDERS AND LOCATIONS. PT'S DAUGHTER WORKED AT [facility] AND PT STATES SHE WANTS TO REHAB THERE. CM EXPLAINED THAT THE FACILITY WOULD HAVE TO REVIEW AND ACCEPT AND PT'S INSURANCE WOULD HAVE TO AUTHORIZE SERVICES AT FACILITY. PT REPORTS UNDERSTANDING. SIGNED CHOICE FOR 1- [facility] AND 2-[facility]. IMPORTANT MESSAGE FROM MEDICARE PROVIDED AND EXPLAINED. CM CALLED [facility], , LEFT MESSAGE FOR MUNA REGARDING NEW REFERRAL FOR REHAB. CM FAXED REFERRAL TO [facility] AT [phone]. Presley Mcintosh, CASE MANAGEMENT DCP- Discharge Planning Updated by [id number]: Presley Mcintosh on 07/12/18 4:[address] Patient Name: MADELINE ROBINS Admission Status: ER Accout number: [id number] Admission Date: 07-08-2018 : 1940 Admission Diagnosis:HEART FAILURE, UNSPECIFIED Attending: ALYSSA GOLDEN Current LOS: 4 Anticipated DC Date: Planned Disposition: Inpatient Rehab Primary Insurance: [facility] MEDICARE SOLUTIONS PLANNED EXTERNAL PROVIDER: [facility] INPATIENT REHAB Discharge Planning Comments: CM RECIEVED ORDER FOR INPATIENT REHAB PRESCREENING. CM MET WITH PT AND DAUGHTER IN ROOM TO DISCUSS DISCHARGE PLANNING AND NEEDS. MADELINE ROBINS provided verbal consent to discuss current and ongoing needs with/in the presence of: RICHARD HALL. PT WANTS [facility] AND WANTS DAUGHTER ALEXI REMOVED EMERGENCY CONTACT. PT REPORTS LIVING AT HOME INDEPENDENTLY WITH FAMILY. PT HASHOME AND PORTABLE OXYGEN THAT WAS SET UP THE OTHER DAY WITH [facility] PAT[facility]. PT ALSO HAS A CANE. PT HAS NO OUTSIDE SERVICES ASSISTING IN THE HOME. CM DISCUSSED AVAILABILITY OF HOME HEALTH, REHAB SERVICES AND MEDICAL EQUIPMENT. PT WANTS REHAB AT [facility], REPORTS HER DAUGHTER WILL PICK HER UP FOR DISCHARGE HOME. IMPORTANT MESSAGE FROM MEDICARE PROVIDED AND EXPLAINED. CM NOTIFIED RODERICK OF ADMISSIONS OF PT'S REQUEST TO REMOVE DAUGHTER ALEXI LEVI EMERGENCY CONTACT AND TO ADD DAUGHTER RICHARD FISCHER, . CM SPOKE TO MACI OF INPATIENT REHAB, NOTIFIED OF PT'S WANTING REHAB AT [place]. PT HAS MANAGED MEDICARE AND WILL REQUIRE PRIOR AUTHORIZATION FROM INSURANCE FOR REHAB SERVICES. CM TO CONTINUE TO FOLLOW AND ASSIST NEEDED. Dump Motorman: Presley Mcintosh DCPIA - Discharge Planning Initial Assessment Updated by [id number]: Presley Mcintosh on 07/12/18 5:31 pm * Is the patient Alert and Oriented? Yes * How many steps to enter\\exit or inside your home? NONE * PCP DR. JOCELYN LUJAN IN [facility] * Pharmacy [facility] IN [place] * Preadmission Environment Home with Family * ADLs Independent * Equipment Home Photo Therapy * Other Equipment HOME AND PORTABLE OXYGEN - *NEEDS NEW OXYGEN QUALIFICATION TESTING PRIOR TO DISCHARGE HOME [facility] PATIENT * List name and contact numbers for known caregivers / representatives who currently or will assist patient after discharge: RICHARD FISCHERJASONR, * Verbal permission to speak to the caregivers and representatives has been obtained from the patient. Yes * Community resources currently utilized None * Please name any agencies selected above. NONE * Additional services required to return to the preadmission environment? No * Can the patient safely return to the preadmission environment? Yes * Has this patient been hospitalized within the prior 30 days at any hospital? Yes Coverage Notice Reviewer: JILLIAN Mcintosh Notice Issued Date-Time: 07/22/2018 10:05 Notice Type: IM Discharge Notice Notice Delivered To: Family Member Relationship to Patient: Daughter Prenatal Nurse Name: RICHARD FISCHER Delivery Method: HAND - Hand Delivered Susan Days: Prior Verbal Notification: Recipient Understood Notice: Yes Recipient Signature: Yes Med Rec Note Co-signed by Attending: Coverage Notice Comment: Reviewer: JILLIAN Mcintosh Notice Issued Date-Time: 07/18/2018 11:00 Notice Type: Patient Choice Letter Notice Delivered To: Patient Relationship to Patient: Prenatal Nurse Name: Delivery Method: HAND - Hand Delivered Susan Days: Prior Verbal Notification: Recipient Understood Notice: Yes Recipient Signature: Yes Med Rec Note Co-signed by Attending: Coverage Notice Comment: 1-[facility] RODRIG[facility], 2-KIMO OLIVA Reviewer: JILLIAN Mcintosh Notice Issued Date-Time: 07/18/2018 11:00 Notice Type: IM Discharge Notice Notice Delivered To: Patient Relationship to Patient: Prenatal Nurse Name: Delivery Method: HAND - Hand Delivered Susan Days: Prior Verbal Notification: Recipient Understood Notice: Yes Recipient Signature: Yes Med Rec Note Co-signed by Attending: Coverage Notice Comment: Reviewer: JILLIAN Mcintosh Notice Issued Date-Time: 07/12/2018 14:50 Notice Type: IM Discharge Notice Notice Delivered To: Patient Relationship to Patient: Prenatal Nurse Name: Delivery Method: HAND - Hand Delivered Susan Days: Prior Verbal Notification: Recipient Understood Notice: Yes Recipient Signature: Yes Med Rec Note Co-signed by Attending: Coverage Notice Comment: Last DP export: 07/22/18 3:00 p Patient Name: MADELINE ROBINS Page [id number] at 1611 All edits/amendments must be made on the electronic document DICTATION DATE: 07/22/181609 BENCH MOLDER: RUBA 07/22/181609 RPT#: [id number] DC DATE: STATUS: ADM IN [facility] [address] [place] [address] END OF REPORT
--- NOTE | 2018-07-22 16:37 | NUR ---
OT NOTE: EXTENDED TIME SPEAKING WITH DTR AND ANSWERING QUESTIONS REGARDING REHAB/SNF. PT WAS RESISTANT TO PARTICIPATE IN THERAPY TODAY STATING THAT SHE WAS NAUSEATED; DTR STATED THAT SHE HAS HAD HER BACK AND FORTH TO BATHROOM SEVERAL TIMES TODAY. PT ABLE TO FEED SELF BUT MINIMAL PO INTAKE. REQUIRED ENCOURAGEMENT TO EAT, BUT FUNCTIONALLY THE DID WELL. RUTH CANELA, OTR/L
--- NOTE | 2018-07-22 17:11 | MORECARE ---
CASE MANAGEMENT DISCHARGE SUMMARY PATIENT: MADELINE ROBINS UNIT: [id number] ADM DATE: 07/08/18 AGE: 77 : 38 SEX: F ROOM/BED: D.1045 AUTHOR: TATA,DOC PHYSICIAN: REFERRING PHYSICIAN: ALYSSA GOLDEN MD DATE OF SERVICE: 07/22/18 Discharge Plan Patient Name: MADELINE ROBINS Facility: [facility]:[place] : 1940 Planned Disposition: [facility] Facility Anticipated Discharge Date: 07/22/18 Discharge Date: Expected LOS: 14 Initial Reviewer: [id number] Initial Review Date: 07/12/2018 Generated: 07/22/18 6:11 pm Comments DCP- Discharge Planning Updated by [id number]: Presley Mcintosh on 07/22/18 2:[address] Patient Name: MADELINE ROBINS Encounter No: [id number] : 1940 Primary Insurance: [facility] MEDICARE SOLUTIONS Anticipated DC Date: 07-20-2018 Planned Disposition: [facility] Facility External Planned Provider: [facility] MEDICARE REHAB BED DCP follow-up note: CM FAXED REFERRAL UPDATE WITH REQUESTED BNP RESULTS REQUESTED BY FACILITY TO [facility] VIA MARTIN AT [phone]. CM NOTIFIED MARTIN OF REFERRAL UPDATE FAXED FOR REHAB AT [facility], . CM WAITING ACCEPTANCE FOR REHAB BY [facility]. PRESLEY MCINTOSH CASE MANAGEMENT Appended by Presley Mcintosh on 07/22/2018 12:44 CLOTH TEARER: CM SPOKE TO PT AND DAUGHTER IN ROOM; CM ASKED ABOUT HOME UTILITIES; PT'S DAUGHTER REPORTS THEY HAVE WOOD HEATER, ELECTRICITY SERVICE AND RUNNING WATER AT HOME. PT IS STILL WANTING REHAB AT [facility]. CM EXPLAINED THAT UPDATE WAS FAXED THIS MORNING AND WAITING ON ADMISSION DETERNATION FROM [facility]. PT'S DAUGHTER REPORTS PT IS SLEEPING "A LOT" AND WANTS TO WAIT TO SEE IF THE ANXIETY PILL HELPS BEFORE DISCHARGE. CM EXPLAINED PT TO BE STABLE FOR DISCHARGE PER [facility] NOTES AND WILL MOST LIKELY DISCHARGE WHEN ACCEPTED FOR REHAB. IMPORTANT MESSAGE FROM MEDICARE PROVIDED AND EXPLAINED. CM WAITING ACCEPTANCE FOR REHAB BY [facility] RET[facility]. PRESLEY MCINTOSH CASE MANAGEMENT Appended by Presley Mcintosh on 07/22/2018 15:27 CLOTH TEARER: CM RECEIVED DISCHARGE ORDER, SPOKE TO PT AND DAUGHTER IN ROOM, PTS DAUGHTER INFORMED CM SHE IS DRIVING PT TO [place] AND NEEDS PORTABLE OXYGEN, SHE HAS [facility] PATIENT, THE PORTABLE SHE HAS IS EMPTY. CM CALLED VAISHNAVI AT [facility], , WHO WILL DELIVER E TANK OF OXYGEN TO HOSPITAL ROOM TO ENSURE PT HAS ENOUGH TO GET TO [place] TODAY. CM FAXED UPDATED OXYGEN TESTING, HISTORY AND PHYSICAL AND PULMONARY NOTE REQUESTED TO [facility] PATIENT, . CM FAXED DISCHARGE INFORMATION TO MARTIN [facility], . TACK COVERER NOTIFIED. CALL NURSE REPORT TO [facility] AT [phone]. FAMILY TO TRANSPORT. PRESLEY MCINTOSH, CASE MANAGEMENT DCP- Discharge Planning Updated by [id number]: Presley Mcintosh on 07/19/18 3:[address] Patient Name: MADELINE ROBINS Encounter No: [id number] : 1940 Primary Insurance: [facility] MEDICARE SOLUTIONS Anticipated DC Date: 07-19-2018 Planned Disposition: [facility] Facility External Planned Provider: [facility] MEDICARE REHAB BED DCP follow-up note: CM RECEIVED CALL FROM MUNA OF [facility], THEY ARE OUT OF NETWORK WITH PT'S INSURANCE. CM FAXED REFERRAL TO [facility]IA MARTIN AT [phone]. CM NOTIFIED MARTIN OF REFERRAL FOR REHAB AT [facility], . CM WAITING ADMISSION DETERMINATION WELL INSURANCE AUTHORIZATION FOR REHAB AT [facility] IN [place]. Presley Mcintosh, CASE MANAGEMENT Appended by Presley Mcintosh on 07/19/2018 15:03 CLOTH TEARER: CM RECEIVED MESSAGE FROM MARTIN LIM [facility], THEY HAVE ACCEPTED PT FOR REHAB AND CANNOT AERODYNAMICS TEACHER PT IN [place] UNTIL 07-22-18; [facility] WOULD ACCEPT PT ON 07-20-18 IF FAMILY CAN TRANSPORT. CM REVIEWED CHART, PT REQUIRES OXYGEN AT 3LNC. CM SPOKE TO PT WHO IS IN AGREEMENT WITH REHAB AT [facility], REPORTS HAVING PORTABLE OXYGEN BUT DOES NOT KNOW IF HER DAUGHTER CAN DRIVE HER TO REHAB TOMORROW. PT'S DAUGHTER AT [employer] APPOINTMENT NOW AND WILL BE BACK SHORTLY, PT ASKED CM TO TALK TO HER DAUGHTER ABOUT TRANSPORATATION ARRANGEMENTS. [facility] CAN ACCEPT PT 07-20-18 FOR REHAB IF FAMILY CAN TRANSPORT PT TO REHAB IN [place]. OTHERWISE, [facility] WILL ACCEPT PT ON 07-22-18 WHEN THEIR [place] CAN AERODYNAMICS TEACHER PT. FOR DISCHARGE, FAX DISCHARGE INFORMATION TO [facility] AT [phone]. CALL NURSE REPORT TO [facility] AT [phone]. PRESLEY MCINTOSH, CASE MANAGEMENT Appended by Presley Mcintosh on 07/19/2018 16:21 CLOTH TEARER: CM CALLED AND SPOKE TO RICHARD FISCHER, DTR, , WHO WILL BRING OXYGEN AND CAN TRANSPORT PT TO REHAB AT [facility] 07-20-18. CM NOTIFIED MARTIN OF [facility] WHO INFORMED CM THAT THE FACILITY NEEDS ANOTHER BNP RESULT. CM NOTIFIED ROBERTO BALDWIN OF FACILITY REQUEST FOR LAB. [facility] CAN ACCEPT PT 07-20-18 FOR REHAB, FAMILY CAN TRANSPORT PT TO REHAB IN [place] AND HAS OXYGEN. CALL [facility], WITH BNP RESULTS 07-20-17; AFTER ACCEPTANCE, FAX DISCHARGE INFORMATION TO [facility] AT [phone]. CALL NURSE REPORT TO [facility] AT [phone]. FAMILY TO TRANSPORT. PRESLEY MCINTOSH, CASE MANAGEMENT DCP- Discharge Planning Updated by [id number]: Presley Mcintosh on 07/18/18 1:[address] Patient Name: MADELINE ROBINS Encounter No: [id number] : 1940 Primary Insurance: [facility] MEDICARE SOLUTIONS Anticipated DC Date: 07-19-2018 Planned Disposition: [facility] Facility External Planned Provider: [facility], MEDICARE REHAB BED DCP follow-up note: CM SPOKE TO MACI OF INPATIENT REHAB WHO INFORMED CM THAT PT'S INSURANCE DECLINED INPATIENT REHAB, SUGGESTED RETIREMENT REHAB. CM MET WITH PT AND DAUGHTER IN ROOM, DISCUSSED INPATIENT DENIAL BY INSURANCE AND AVAILABILITY OF RETIREMENT REHAB PROVIDERS AND LOCATIONS. PT'S DAUGHTER WORKED AT [facility] AND PT STATES SHE WANTS TO REHAB THERE. CM EXPLAINED THAT THE FACILITY WOULD HAVE TO REVIEW AND ACCEPT AND PT'S INSURANCE WOULD HAVE TO AUTHORIZE SERVICES AT FACILITY. PT REPORTS UNDERSTANDING. SIGNED CHOICE FOR 1- [facility] AND 2-[facility]. IMPORTANT MESSAGE FROM MEDICARE PROVIDED AND EXPLAINED. CM CALLED [facility], , LEFT MESSAGE FOR MUNA REGARDING NEW REFERRAL FOR REHAB. CM FAXED REFERRAL TO [facility] AT [phone]. Presley Mcintosh, CASE MANAGEMENT DCP- Discharge Planning Updated by [id number]: Presley Mcintosh on 07/12/18 4:[address] Patient Name: MADELINE ROBINS Admission Status: ER Accout number: [id number] Admission Date: 07-08-2018 : 1940 Admission Diagnosis:HEART FAILURE, UNSPECIFIED Attending: ALYSSA GOLDEN Current LOS: 4 Anticipated DC Date: Planned Disposition: Inpatient Rehab Primary Insurance: [facility] MEDICARE SOLUTIONS PLANNED EXTERNAL PROVIDER: [facility] Discharge Planning Comments: CM RECIEVED ORDER FOR INPATIENT REHAB PRESCREENING. CM MET WITH PT AND DAUGHTER IN ROOM TO DISCUSS DISCHARGE PLANNING AND NEEDS. MADELINE ROBINS provided verbal consent to discuss current and ongoing needs with/in the presence of: RICHARD HALL. PT WANTS [facility] CONTA[facility] AND WANTS DAUGHTER ALEXI REMOVED EMERGENCY CONTACT. PT REPORTS LIVING AT HOME INDEPENDENTLY WITH FAMILY. PT HASHOME AND PORTABLE OXYGEN THAT WAS SET UP THE OTHER DAY WITH [facility] PAT[facility]. PT ALSO HAS A CANE. PT HAS NO OUTSIDE SERVICES ASSISTING IN THE HOME. CM DISCUSSED AVAILABILITY OF HOME HEALTH, REHAB SERVICES AND MEDICAL EQUIPMENT. PT WANTS REHAB AT [facility], REPORTS HER DAUGHTER WILL PICK HER UP FOR DISCHARGE HOME. IMPORTANT MESSAGE FROM MEDICARE PROVIDED AND EXPLAINED. CM NOTIFIED RODERICK OF ADMISSIONS OF PT'S REQUEST TO REMOVE DAUGHTER ALEXI [facility] EMERGENCY CONTACT AND TO ADD DAUGHTER RICHARD FISCHER, . CM SPOKE TO MACI OF INPATIENT REHAB, NOTIFIED OF PT'S WANTING REHAB AT [place]. PT HAS MANAGED MEDICARE AND WILL REQUIRE PRIOR AUTHORIZATION FROM INSURANCE FOR REHAB SERVICES. CM TO CONTINUE TO FOLLOW AND ASSIST NEEDED. Chief Of Safety And Protection: Presley Mcintosh DCPIA - Discharge Planning Initial Assessment Updated by [email or web address]: Presley Mcintosh on 07/12/18 5:31 pm * Is the patient Alert and Oriented? Yes * How many steps to enter\\exit or inside your home? NONE * PCP DR. JOCELYN LUJAN IN [facility] * Pharmacy [facility] IN [place] * Preadmission Environment Home with Family * ADLs Independent * Equipment Home Photo Therapy * Other Equipment HOME AND PORTABLE OXYGEN - *NEEDS NEW OXYGEN QUALIFICATION TESTING PRIOR TO DISCHARGE HOME [facility] PATIENT * List name and contact numbers for known caregivers / representatives who currently or will assist patient after discharge: RICHARD FISCHER DTR, * Verbal permission to speak to the caregivers and representatives has been obtained from the patient. Yes * Community resources currently utilized None * Please name any agencies selected above. NONE * Additional services required to return to the preadmission environment? No * Can the patient safely return to the preadmission environment? Yes * Has this patient been hospitalized within the prior 30 days at any hospital? Yes Coverage Notice Reviewer: JILLIAN Mcintosh Notice Issued Date-Time: 07/12/2018 14:50 Notice Type: IM Discharge Notice Notice Delivered To: Patient Relationship to Patient: [employer] Consultant Name: Delivery Method: HAND - Hand Delivered Susan Days: Prior Verbal Notification: Recipient Understood Notice: Yes Recipient Signature: Yes Med Rec Note Co-signed by Attending: Coverage Notice Comment: Reviewer: JILLIAN Mcintosh Notice Issued Date-Time: 07/18/2018 11:00 Notice Type: Patient Choice Letter Notice Delivered To: Patient Relationship to Patient: [employer] Consultant Name: Delivery Method: HAND - Hand Delivered Susan Days: Prior Verbal Notification: Recipient Understood Notice: Yes Recipient Signature: Yes Med Rec Note Co-signed by Attending: Coverage Notice Comment: 1-ALAVRADO RODRIGUEZ, 2-KIMO OLIVA Reviewer: JILLIAN Mcintosh Notice Issued Date-Time: 07/18/2018 11:00 Notice Type: IM Discharge Notice Notice Delivered To: Patient Relationship to Patient: [employer] Consultant Name: Delivery Method: HAND - Hand Delivered Susan Days: Prior Verbal Notification: Recipient Understood Notice: Yes Recipient Signature: Yes Med Rec Note Co-signed by Attending: Coverage Notice Comment: Reviewer: JILLIAN Mcintosh Notice Issued Date-Time: 07/22/2018 10:05 Notice Type: IM Discharge Notice Notice Delivered To: Family Member Relationship to Patient: Daughter [employer] Consultant Name: RICHARD FISCHER Delivery Method: HAND - Hand Delivered Susan Days: Prior Verbal Notification: Recipient Understood Notice: Yes Recipient Signature: Yes Med Rec Note Co-signed by Attending: Coverage Notice Comment: Last DP export: 07/22/18 3:11 p Patient Name: MADELINE ROBINS Page [id number] at 1711 All edits/amendments must be made on the electronic document DICTATION DATE: 07/22/181710 VISUAL BASIC PROGRAMMER: RUBA 07/22/181710 RPT#: [id number] DC DATE: STATUS: ADM IN [facility] [address] [place] [address] END OF REPORT
--- NOTE | 2018-07-22 19:04 | NUR ---
PT DISCHARGED [facility] VIA WHEELCHAIR WITH FAMILY. PT SIGNED PROPER DISCHARGE INSTRUCTION AND REMOVED ALL VALUABLES FROM THE ROOM. PIV REMOVED WITH CATHETER TIP FULLY INTACT. TELEMETRY REMOVED AND RETURNED.
== END 2018-07-22 19:05 | DRG 291 ==
LOC: D.ER 20:59 → D.EDHOLD 22:53 → D.M2 22:53
PROVIDERS: Emergency Medicine; Family Medicine; Internal Medicine Pulmonary Disease; ADMIT Internal Medicine Nephrology
DX: I11.0 Hypertensive heart disease with heart failure (principal); J18.9 Pneumonia, unspecified organism; N17.9 Acute kidney failure, unspecified; J96.11 Chronic respiratory failure with hypoxia; J44.1 Chronic obstructive pulmonary disease with (acute) exacerbation; J98.11 Atelectasis; I50.33 Acute on chronic diastolic (congestive) heart failure; I25.10 Atherosclerotic heart disease of native coronary artery without angina pectoris; I48.91 Unspecified atrial fibrillation; E03.9 Hypothyroidism, unspecified; K21.9 Gastro-esophageal reflux disease without esophagitis; G47.33 Obstructive sleep apnea (adult) (pediatric); J30.9 Allergic rhinitis, unspecified; I73.9 Peripheral vascular disease, unspecified; F17.200 Nicotine dependence, unspecified, uncomplicated; I08.1 Rheumatic disorders of both mitral and tricuspid valves; I27.20 Pulmonary hypertension, unspecified; D50.9 Iron deficiency anemia, unspecified; E87.6 Hypokalemia; D69.6 Thrombocytopenia, unspecified; K59.00 Constipation, unspecified; F03.90 Unspecified dementia, unspecified severity, without behavioral disturbance, psychotic disturbance, mood disturbance, and anxiety; G25.81 Restless legs syndrome; Z95.5 Presence of coronary angioplasty implant and graft